=== PATIENT | male | born 1930 | race Caucasian/White ===

== ENCOUNTER 2018-06-04 16:39 | Inpatient (IN) ==
[2018-06-04] MEDS ORDERED: 0.9 % Sodium Chloride 1,000 ML IVC ONE (17:16)
--- NOTE | 2018-06-04 17:16 | Emergency Department Note ---
Disposition Clinical Impression: Elevated troponin, NSTEMI (non-ST elevated myocardial infarction), IVAN (acute kidney injury), Elevated CK Pneumonia Qualifiers: Pneumonia type: due to unspecified organism Laterality: unspecified laterality Lung location: unspecified part of lung Qualified Code(s): J18.9 - Pneumonia, unspecified organism Disposition: Admitted As Inpatient Condition: Fair [facility] Care Provider[facility] - Forms: ED Satisfaction Letter Time of Disposition: 19:47 Recheck wound or abnormal lab - General Chief Complaint: ED Recheck/Abnormal Lab/Rx Stated Complaint: Elevated Trop Time Seen by Provider: 06/04/18 16:41 Source: patient, EMS Mode of arrival: EMS Limitations: no limitations Nursing Notes Reviewed: Yes Vital Signs Reviewed: Yes - History of Present Illness HPI Narrative: 87-year-old male history of hypertension, diabetes, hypothyroid presents an emergency department via EMS for elevated troponin. Patient lives at home by himself and states over the past 3 days sees been feeling nauseated and unable to eat anything. [facility] went [facility] to [facility] and presents here for elevated troponin greater than 40. He denies any chest pain or shortness of breath. He denies any syncope. She denies any abdominal pain. Review of the note states that the patient has been feeling confused and was found on the floor crawling this morning. The patient denies falling. When I read this to the patient he denies any of this. He said he slipped out of his chair and tried to crawl to another chair. He denies history of stroke. Denies history of cardiac ischemic disease. Review of his medical history shows that he has a stent graft repair for abdominal aortic aneurysm emphysema hyperlipidemia hypertension lung nodules hypothyroid and obesity. Review of his labs showed a white count of 9.6 hemoglobin 12.3 CK 1566 and a troponin greater than 40 his creatinine is 1.94 and he denies history of kidney issues. He does not take any anticoagulants. He has not taken any aspirin today. Pt Subjective Complaint: abnormal lab(s) - Related Data Home Medications Medication Instructions Recorded Confirmed Cetirizine HCl [All Day Allergy] 10 mg PO DAILY 06/04/18 06/04/18 Cholecalciferol (D-3) [Vitamin D] 2,000 unit PO DAILY 06/04/18 06/04/18 Levothyroxine [Synthroid] 125 mcg PO 0630 06/04/18 06/04/18 Losartan [Cozaar] 25 mg PO DAILY 06/04/18 06/04/18 Omeprazole [PriLOSEC] 20 mg PO DAILY 06/04/18 06/04/18 Triamterene/Hydrochlorothiazid 1 cap PO DAILY 06/04/18 06/04/18 [Dyazide 37.5-25 Capsule] Allergies Allergy/AdvReac Type Severity Reaction Status Date / Time atorvastatin Allergy See Verified 06/04/18 16:53 Comments simvastatin Allergy See Verified 06/04/18 16:53 Comments All systems ED: reviewed and negative except as stated. Review of Systems: As Per HPI Constitutional: Reports: weakness. Denies: fever, chills ENT ED: Denies: congestion Cardiovascular: Denies: chest pain Respiratory: Denies: cough, dyspnea Gastrointestinal: Reports: nausea. Denies: abdominal pain Genitourinary: Denies: dysuria Musculoskeletal: Denies: back pain, neck pain Integumentary: Denies: rash Neurological: Reports: weakness. Denies: headache, confusion Endocrine: Reports: fatigue Past Medical History - Past Medical History Attestation: Yes The following information was validated with the patient. Source: patient Medical history: Reports: arthritis, COPD, GERD, hypertension, thyroid disease Psychiatric history: Reports: no psych history - Social History Smoking Status: Former smoker Smokeless Tobacco Status: No Alcohol use: Reports: none Drug use: Reports: none Physical Exam - General Limitations: no limitations General appearance: alert, in no apparent distress, obese - Head Head exam: atraumatic, normocephalic, normal inspection - Eye Eye exam: Present: normal appearance, PERRL, EOMI - ENT ENT exam: normal exam, normal oropharynx, mucous membranes dry - Neck Neck exam: Present: normal inspection, full ROM, trachea midline - Chest Chest inspection: Present: normal inspection, symmetric chest wall rise. Absent : tenderness - Respiratory Respiratory exam: Present: normal lung sounds bilaterally. Absent: respiratory distress, wheezes - Cardiovascular Cardiovascular exam: Present: regular rate, normal rhythm, normal heart sounds - Abdominal Exam Abdominal exam: Present: soft, Non-Tender, normal bowel sounds, pulsatile mass ( Patient has known aortic aneurysm with repair in a scheduled follow-up). Absent : tenderness, distention, guarding, rebound, rigidity - Extremities Exam Extremities exam: Present: normal inspection, full ROM. Absent: tenderness, pedal edema - Neurological Exam Neurological exam: Present: alert, oriented X3 - Psychiatric Psychiatric exam: Present: normal affect, normal mood - Skin Skin exam: Present: warm, dry, intact, normal color. Absent: rash, cyanosis, diaphoresis Course Course Narrative: Patient presents with a reported elevated troponin level of greater than 40. He denies any chest pain or shortness of breath. No syncope or lightheadedness. No history of cardiac ischemic disease. He does have risk factors. Will repeat troponin here. His initial EKG did not show any ischemic findings consistent with STEMI. His CK was elevated and also had elevated creatinine level will repeat as the urgent care note stated the patient was on the ground crawling. There is no obvious signs of injury or trauma. - Reevaluation(s) Reevaluation #1: Troponin elevated 17.2 this is lower than the report troponin from outside facility. CK is also elevated. Patient has received 1 L fluid however checks x -ray did show some fluid overload. His creatinine is also significantly elevated at 1.8 he denies history of kidney disease. He does not have any prior laboratory values to compare. Patient will require admission. Given his history of aneurysm will obtain a CT scan of his chest and pelvis to evaluate for any dissection. And has artery received aspirin. Again he denies any G.I. bleed symptoms such as hemoptysis, hematemesis, bloody stool or blacked tarry stool. Time: 19:07 - Consultations Consultation #1: Spoke with a escalator installer Dr. Castro who agrees that if there is no contraindication to heparin recommend to give heparin with bolus. Aware that troponin is still elevated at 17 without STEMI and no emergent intervention. Will consult and evaluate on the floor. Impression is NSTEMI Time: 19:45 Consultation #2: Spoke with on-call hospitalist daisy Vernon to admit for NSTEMI and CAP. No further orders at this time Time: 21:02 Vital Signs Temperature 98.4 F 06/04/18 16:43 Pulse Rate 98 06/04/18 16:43 Respiratory Rate 16 06/04/18 16:43 Blood Pressure 106/76 06/04/18 16:43 O2 Sat by Pulse Oximetry 95 06/04/18 16:43 Temperature 98.4 F 06/04/18 16:43 Pulse Rate 84 06/04/18 20:03 Respiratory Rate 20 06/04/18 20:03 Blood Pressure 106/73 06/04/18 18:50 O2 Sat by Pulse Oximetry 95 06/04/18 20:03 Oxygen Delivery Oxygen Delivery Nasal Cannula Recheck wound or abnormal lab - MDM Narrative Medical decision making narrative: Patient was discussed with my attending physician who agrees with ED management and final disposition. They independently evaluated the patient. Please refer to their attestation to this encounter for additional information. This note was generated by [employer] voice recognition software and as a result grammatical or spelling errors may occur using this program. - Medical Records Medical records reviewed: Yes I reviewed the patient's medical records. - Lab Data Lab results reviewed: Yes I reviewed the patient's lab results. Result diagrams: 06/04/18 17:31 Lab Results 06/04/18 Range/Units 17:31 Sodium 132 L (136-145) mEq/L Potassium 3.9 (3.5-5.1) mEq/L Chloride 97 L (98-107) mEq/L Carbon Dioxide 26 (23-29) mEq/L BUN 29 H (8-23) mg/dL Creatinine 1.85 H (0.70-1.30) mg/dL Est GFR ( Amer) 42 L (> 60) Est GFR (Non-Af Amer) 35 L (> 60) BUN/Creatinine Ratio 16 (6-26) Glucose 108 H (70-105) mg/dL Calculated Osmolality 280 (280-300) Calcium 9.2 (8.6-10.3) mg/dL Creatine Kinase 1326 H (30-223) Units/L Troponin I 17.24 H* (< 0.04) ng/mL TSH 3.106 (0.340-5.600) mcIU/mL - EKG Data EKG attestation: Yes I reviewed and interpreted this EKG. EKG results narrative: EKG performed 1650, appears sinus tachycardia 107 beats per minute, slight left axis deviation, good R wave progression, no ST elevation, there are minimal slight ST depression seen in V5 V6. Compared to the EKG performed at the [facility] at 1153 which shows similar consistent findings of sinus rhythm without ST changes.
[2018-06-04] MEDS ORDERED: Aspirin 325 MG TABLET PO ONE (17:29)
[2018-06-04] MEDS ORDERED: Isovue-370 500 ML INFUS..BTL IV ONE (17:51)
[2018-06-04 18:17] LABS: Calcium 9.2 mg/dL (8.6-10.3); Potassium 3.9 mEq/L (3.5-5.1)
[2018-06-04 19:07] LABS: Troponin I 17.24 ng/mL (< 0.04)
[2018-06-04 19:10] LABS: Thyroid Stimulating Hormone 3.106 mcIU/mL (0.340-5.600)
--- NOTE | 2018-06-04 19:43 | Emergency Department Note ---
Disposition Clinical Impression: Elevated troponin Disposition: Admitted As Inpatient Forms: ED Satisfaction Letter General Adult HPI - General Chief complaint: ED Recheck/Abnormal Lab/Rx Stated complaint: Elevated Trop Time Seen by Provider: 06/04/18 16:41 Source: patient, EMS Mode of arrival: EMS Limitations: no limitations - History of Present Illness Pain Scale: 0 - Related Data Allergies Allergy/AdvReac Type Severity Reaction Status Date / Time atorvastatin Allergy See Verified 06/04/18 16:53 Comments simvastatin Allergy See Verified 06/04/18 16:53 Comments Constitutional: Reports: weakness. Denies: fever, chills ENT ED: Denies: congestion Cardiovascular: Denies: chest pain Respiratory: Denies: cough, dyspnea Gastrointestinal: Reports: nausea. Denies: abdominal pain Genitourinary: Denies: dysuria Musculoskeletal: Denies: back pain, neck pain Integumentary: Denies: rash Neurological: Reports: weakness. Denies: headache, confusion Endocrine: Reports: fatigue Past Medical History - Past Medical History Medical history: Reports: arthritis, COPD, GERD, hypertension, thyroid disease Psychiatric history: Reports: no psych history - Social History Smoking Status: Former smoker Smokeless Tobacco Status: No Alcohol use: Reports: none Drug use: Reports: none Physical Exam - General Limitations: no limitations General appearance: alert, in no apparent distress, obese Course Vital Signs Temperature 98.4 F 06/04/18 16:43 Pulse Rate 98 06/04/18 16:43 Respiratory Rate 16 06/04/18 16:43 Blood Pressure 106/76 06/04/18 16:43 O2 Sat by Pulse Oximetry 95 06/04/18 16:43 Temperature 98.4 F 06/04/18 16:43 Pulse Rate 86 06/04/18 18:50 Respiratory Rate 24 06/04/18 18:50 Blood Pressure 106/73 06/04/18 18:50 O2 Sat by Pulse Oximetry 95 06/04/18 18:50 Oxygen Delivery Oxygen Delivery Nasal Cannula Medical Decision Making - Lab Data Result diagrams: 06/04/18 17:31 Lab Results 06/04/18 Range/Units 17:31 Sodium 132 L (136-145) mEq/L Potassium 3.9 (3.5-5.1) mEq/L Chloride 97 L (98-107) mEq/L Carbon Dioxide 26 (23-29) mEq/L BUN 29 H (8-23) mg/dL Creatinine 1.85 H (0.70-1.30) mg/dL Est GFR ( Amer) 42 L (> 60) Est GFR (Non-Af Amer) 35 L (> 60) BUN/Creatinine Ratio 16 (6-26) Glucose 108 H (70-105) mg/dL Calculated Osmolality 280 (280-300) Calcium 9.2 (8.6-10.3) mg/dL Creatine Kinase 1326 H (30-223) Units/L Troponin I 17.24 H* (< 0.04) ng/mL TSH 3.106 (0.340-5.600) mcIU/mL Attestation Statement - Attestation Attestation: I examined this patient and my medical decision-making was reviewed with the Resident Physician. I agree with the documented findings, disposition and treatment plan as described except to the extent set forth below. 87 year old male presents to the ED with complaints of elevatd troponin and an unclear histroy fo unknonw down time. He was originally seen at the [facility] and had an initial troponin of >40 and CK of 1300. Vinny here has a troponin of 17 and CK of 1300 in addition to a histyr of thoarcic aortic aneurysms unrepaired and a abdominal anuerysm repaired. He is an unreliable historian. We will admit to medicine
[2018-06-04] MEDS ORDERED: cefTRIAXone 2,000 MG in Water for inj. (sterile) 20 ML 20 ML IVPB ONE (20:25)
[2018-06-04] MEDS ORDERED: Azithromycin 500 MG in D5% in Water 250 ML IVPB ONE (20:25)
[2018-06-04] MEDS ORDERED: *HR* Heparin 5,000 UNIT/ML VIAL IVP ONE (20:25)
[2018-06-04] MEDS ORDERED: *HR* Heparin 5,000 UNIT/ML VIAL IVP PRN (20:25)
[2018-06-04 21:35] LABS: Heparin anti-factor XA UFH 0.01 IU/mL (0.30-0.70)
[2018-06-04 21:36] LABS: INR 1.2; Prothrombin Time 13.4 Seconds (9.4-12.1)
[2018-06-04] MEDS: Heparin 25,000 UNIT/500 ML D5W 25,000 UNIT/500 ML BAG IVC SCH (23:29)
[2018-06-05] MEDS ORDERED: Naloxone 0.4 MG/ML INJ IVP PRN (03:36)
[2018-06-05] MEDS ORDERED: Albuterol 2.5 MG/3 ML NEBULIZER IH PRN (03:44)
--- NOTE | 2018-06-05 03:58 | Internal Med History&Physical ---
Date of Encounter: 06/05/18 Time of Encounter: 01:05 Internal Medicine - H&P: HPI Chief complaint: fall; cough Admitted From: Emergency Dept Plans for Post Hospital Care: Home History of present illness: Mr. Jane is an 87 year old male who presents to our ER tonight after referral from the [facility]. His son took him to the [facility] urgent care for concerns of weakness, shortness of breath, status post fall, and not acting normally. He was seen and evaluated at the [facility] care and was found to have an elevated troponin of greater than 40. He was therefore sent to our ER for further workup and evaluation. Workup in our ER revealed patient to have a troponin of 17, EKG changes suggestive of a non-STEMI, and CT chest findings concerning for possible pneumonia. Cardiology was consulted from the ER and recommended heparinization with admission to hospitalist service and cardiology consultation. I was therefore called by the ER staff and patient was admitted to our service. Upon my assessment of the patient, he is a poor historian and not very compliant with history and/or exam. He adamantly refuses that he has had a heart attack. He states he has no chest pain, chest pressure, or any syncopal event. His only complaint was shortness of breath and that he fell at home. He denies any fevers or chills. He refuses to pursue any cardiac intervention or testing. I asked him to at least talk with cardiology and pursue an echocardiogram for further guidance. He would not comment any further. Past Med Surg Social Fam HX - Past Medical History Source: [facility] records reviewed ([facility]), other ([facility] notes) Medical history: arthritis, COPD, GERD, hypertension, thyroid disease Additional medical history: Aneurysm Psychiatric history: no psych history - Past Surgical History Surgical History: herniorrhaphy Additional surgical history: hernia repair. eye implants - Social History Smoking Status: Former smoker Smokeless Tobacco Status: No Alcohol use: none Drug use: none Current living situation: Home - Independent Activity Level: Independent ambulation - Family History Mother History Unknown: Yes Living Status: Father History Unknown: Yes Living Status: Internal Medicine - H&P: Meds Cetirizine HCl [All Day Allergy] 10 mg PO DAILY 06/04/18 [History] Cholecalciferol (D-3) [Vitamin D] 2,000 unit PO DAILY 06/04/18 [History] Levothyroxine [Synthroid] 125 mcg PO 0630 06/04/18 [History] Losartan [Cozaar] 25 mg PO DAILY 06/04/18 [History] Omeprazole [PriLOSEC] 20 mg PO DAILY 06/04/18 [History] Triamterene/Hydrochlorothiazid [Dyazide 37.5-25 Capsule] 1 cap PO DAILY [History] 3 Allergy/AdvReac Type Severity Reaction Status Date / Time atorvastatin Allergy See Verified 06/04/18 16:53 Comments simvastatin Allergy See Verified 06/04/18 16:53 Comments Review of systems: non-compliant w ROS other than that documented below - Cardiovascular Cardiovascular ROS IM: dyspnea, no chest pain, no diaphoresis, no syncope - Respiratory Respiratory: cough, no hemoptysis - Neurological Neurological ROS: no frequent falls (+ fall today but not frequent) - Constitutional Vitals: Temp Pulse Resp BP Pulse Ox 98.7 F 80 16 103/51 98 06/05/18 00:24 06/05/18 00:24 06/05/18 00:24 06/05/18 00:24 06/05/18 00:24 General appearance: Present: A&O X 3, no acute distress. Absent: cooperative Exam: non-compliant with history and exam - Head Head exam: Present: atraumatic - Eye Eye exam: Present: EOMI. Absent: scleral icterus - ENT ENT exam: Present: mucous membranes dry, normal exam, normal oropharynx - Neck Neck exam general surgery: Present: full ROM, supple. Absent: tenderness, nuchal rigidity, thyromegaly - Respiratory Respiratory exam: Present: rales (right base), rhonchi, wheezes. Absent: chest wall tenderness, respiratory distress - Cardiovascular Cardiovascular exam: Present: distant heart sounds, RRR, +S1, +S2. Absent: diastolic murmur, systolic murmur - GI/Abdominal GI/Abdominal exam: Present: normal bowel sounds, soft. Absent: mass, tenderness - Extremities Exam Extremities exam: Present: full ROM, warm, radial pulses palpable and symmetrical. Absent: calf tenderness, pedal edema, tenderness - Back Exam Back exam: Absent: CVA tenderness (L), CVA tenderness (R) - Neurological Exam Neurological exam: Present: alert, oriented X3, no focal deficits - Psychiatric Psychiatric exam: Present: agitated - Skin Skin exam: Present: dry, intact, warm Internal Med - H&P Results - Labs CBC & Chem 7: 06/04/18 17:31 Labs: Troponin 17.24 - EKG Data -: EKG Interpreted by Myself - EKG Data Prior EKG available for review: no EKG comments: 06/05/18 04:11 NSR; lateral wall ST-T depression - Diagnostic Studies CT scan - chest Status: image reviewed by me (Ascending aortic aneurysm; RUL consolidation) - Assessment and plan (1) NSTEMI (non-ST elevated myocardial infarction) Current Visit: Yes Status: Acute Assessment and plan: 1. Will trend troponins, EKG's, and order ECHO. 2. Continue heparin gtt and add ASA. 3. Patient has STATIN allergy but unknown reaction; need to verify. 4. Patient adamantly denies and refutes IA. He is refusing work-up and intervention at this time. Need to have family and day team address with cardiology. 5. Currently chest pain free. (2) Pneumonia Current Visit: Yes Status: Acute Assessment and plan: 1. Continue IV antibiotics. 2. Add aerosols PRN. 3. Oxygen as needed. 4. Clinical follow up. Qualifiers: Pneumonia type: due to unspecified organism Laterality: right Lung location: upper lobe of lung Qualified Code(s): J18.1 - Lobar pneumonia, unspecified organism (3) IVAN (acute kidney injury) Current Visit: Yes Status: Acute Assessment and plan: 1. Monitor renal function and consult nephrology if fails to improve. 2. No baseline labs available for review. (4) DVT prophylaxis Current Visit: Yes Status: Acute Assessment and plan: 1. Heparin drip as above.
[2018-06-05 04:13] LABS: Basophils % 0.1 %; Hematocrit 35.4 % (37.5-50.1); Hemoglobin 11.5 g/dL (12.9-16.9); Immature Granulocytes % 0.5 % (0-4); Lymphocytes # 0.6 K/mcL (0.6-4.6); Lymphocytes % 6.5 %; Mean Corpuscular HGB Conc 32.5 g/dL (31.6-35.5); Mean Corpuscular Hemoglobin 29.6 pg (28.0-33.3); Mean Corpuscular Volume 91.2 fL (83.0-100.0); Mean Platelet Volume 10.8 fL (9.4-12.4); Monocytes % 10.9 %; Neutrophils # 7.5 K/mcL (1.6-8.9); Platelet Count 143 K/mcL (140-400); Red Blood Count 3.88 M/mcL (4.19-5.50); Red Cell Distribution Width 14.1 % (11.5-14.5)
[2018-06-05 04:35] LABS: Albumin 3.4 g/dL (3.5-5.7); Bilirubin,Total 0.7 mg/dL (0.3-1.0); Calcium 8.9 mg/dL (8.6-10.3); Chol/HDL Ratio 3.4 (0-4.9); Globulin 3.3 g/dL (2.4-3.5); Magnesium 2.1 mg/dL (1.6-2.6); Total Protein 6.7 g/dL (6.4-8.9)
[2018-06-05 04:48] LABS: INR 1.2
[2018-06-05 04:51] LABS: Activated Partial Thrombo Time 45.6 Seconds (26.0-36.0)
[2018-06-05] MEDS: Ipratropium/Albuterol Neb 3 ML IH SCH ×4 (05:15→21:24)
[2018-06-05] MEDS: *HR* Heparin 5,000 UNIT/ML VIAL IVP PRN (05:35)
[2018-06-05] MEDS: Loratadine 10 MG TABLET PO SCH (08:18)
[2018-06-05] MEDS: cefTRIAXone 1,000 MG in Water for inj. (sterile) 20 ML 10 ML IVP SCH (08:18)
[2018-06-05] MEDS: Aspirin 81 MG TAB.CHEW PO SCH (08:18)
[2018-06-05] MEDS ORDERED: 0.9 % Sodium Chloride 500 ML IVC ONE (08:27)
--- NOTE | 2018-06-05 09:03 | Cardiology Consult Note ---
Date of Encounter: 06/05/18 Time of Encounter: 08:30 Assessment and Plan (1) NSTEMI (non-ST elevated myocardial infarction) Current Visit: Yes Status: [facility], and now 14.21. Presented to the [place] with weakness, AMS, shortness of breath. Patient denies chest pain or discomfort, no acute ECG changes present. Also with PNA (T max 24 hours 101.2) and IVAN--improving. SCr 1.76 today. CK elevated, ? Rhabdo component. Significant risk factors for CAD; ideally recommend LHC when able (IVAN/PNA resolves); patient is hesitant to proceed at this juncture due to his advanced age. Agreeable to TTE; continue heparin gtt and asa. Allergy to statins. Will start low dose BB--mildly hypotensive this AM. Will continue to follow. (2) IVAN (acute kidney injury) Current Visit: Yes Status: Acute SCr 1.94 at [place], now 1.76. Continue to avoid nephrotoxins. Mgmt per Primary service. (3) Elevated CK Current Visit: Yes Status: Acute (4) Pneumonia Current Visit: Yes Status: Acute Mgmt per Primary service. Qualifiers: Pneumonia type: due to unspecified organism Laterality: right Lung location: upper lobe of lung Qualified Code(s): J18.1 - Lobar pneumonia, unspecified organism Discussion w patient/family: The assessment and plan as outlined above was discussed with the patient and/or family members who expressed understanding and agreement. All questions were answered. Thank you for involving us in the care of your patient. Please call with any questions. The patient will be discussed and reviewed with Dr. Carvalho; changes to be made accordingly. History of Present Illness Consult date: 06/05/18 Requesting physician: Tom Mcneal Consult reason: NSTEMI Chief complaint: fall, weakness History of present illness: Mr. Jane is a 87 year old male with PMHx significant for HTN, HLD, AAA s/p endovascular repair (~2years ago), and hypothyroidism who presented to the ED as a transfer from the [place] due to reported troponin >40. Please note, patient is a poor historian, pertinent information obtained also [facility]. Reportedly, family took patient to [place] urgent care yesterday (06/04) due to AMS, weakness. Patient reports feeling weak the day before, "slid" out of chair, he reports he laid on the ground for no more than an hour before family found him. He denies chest pain/discomfort. Reports shortness of breath and fatigue, but states these are ordinary symptoms for him. [facility], was found to have PNA and was given IV azithromycin. Noted to have IVAN--SCr 1.97. Hypoxia present with SPO2 85% on RA. No prior CV testing available for my review. Past Med Surg Social Fam HX - Past Medical History Attestation: Yes The following information was validated with the patient. Source: patient Medical history: arthritis, COPD, GERD, hypertension, thyroid disease Additional medical history: Aneurysm Psychiatric history: no psych history - Past Surgical History Surgical History: herniorrhaphy, vascular surgery, other (AAA repair) Additional surgical history: hernia repair. eye implants - Social History Smoking Status: Former smoker Smokeless Tobacco Status: No Alcohol use: none Drug use: none - Family History Mother History Unknown: Yes Living Status: Father History Unknown: Yes Living Status: Medications and Allergies Cetirizine HCl [All Day Allergy] 10 mg PO DAILY 06/04/18 [History] Cholecalciferol (D-3) [Vitamin D] 2,000 unit PO DAILY 06/04/18 [History] Levothyroxine [Synthroid] 125 mcg PO 0630 06/04/18 [History] Losartan [Cozaar] 25 mg PO DAILY 06/04/18 [History] Omeprazole [PriLOSEC] 20 mg PO DAILY 06/04/18 [History] Triamterene/Hydrochlorothiazid [Dyazide 37.5-25 Capsule] 1 cap PO DAILY [History] 3 Allergy/AdvReac Type Severity Reaction Status Date / Time atorvastatin Allergy See Verified 06/04/18 16:53 Comments simvastatin Allergy See Verified 06/04/18 16:53 Comments All Systems Review: The remainder of the systems were reviewed and are negative - Cardiovascular Cardiovascular: as per HPI Physical Examination Vital Signs, Last 4 Hours Temp Pulse Resp BP Pulse Ox 06/05/18 07:45 98.4 F 94 26 136/111 94 06/05/18 07:27 99.1 F 84 16 94/43 94 06/05/18 05:17 24 93 General: Conversant, Other (ill appearing elderly WM) Cardiac: Reg Rate and Rhythm, Normal S1 and S2 Lungs: Other (diminshed, wheezing throughout) Neuro: Alert and responsive Abdomen: Soft, Other (large, non-tender) Skin: No rashes noted on visualized skin Musculoskeletal: No Chest Wall Tenderness Extremities: Other (mild BLE edema, +1 pre-tibial) Results 06/05/18 03:55 06/05/18 03:55 Lab Results 06/05/18 06/05/18 06/05/18 03:55 03:55 03:55 WBC 9.2 Hgb 11.5 L Hct 35.4 L Plt Count 143 INR APTT Sodium 133 L Potassium 4.0 Chloride 98 Carbon Dioxide 25 BUN 29 H Creatinine 1.76 H Glucose 120 H Calcium 8.9 Magnesium 2.1 Total Bilirubin 0.7 AST 76 H ALT 31 Alkaline Phosphatase 71 Troponin I 14.41 H* 06/05/18 04:26 WBC Hgb Hct Plt Count INR 1.2 APTT 45.6 H Sodium Potassium Chloride Carbon Dioxide BUN Creatinine Glucose Calcium Magnesium Total Bilirubin AST ALT Alkaline Phosphatase Troponin I Impressions Chest X-Ray 06/04/18 17:16 IMPRESSION: Patchy bilateral airspace disease, greater on the right. Multifocal pneumonia and edema are both considered. D/ / Prashanth Doe MD / Prashanth Doe MD Abdomen/Pelvis CTA 06/04/18 17:51 IMPRESSION: No evidence of thoracic or aortic dissection. Aneurysmal dilation of the ascending thoracic aorta, measuring maximally 4.7 cm. No comparison examinations are available to testing manager stability. Abdominal aortic aneurysm status post endo stent repair. No evidence of an endoleak is identified. No evidence of retroperitoneal leakage. The [place] aneurysm sac measures maximally 4.7 cm. Again, no comparison examinations are available to gauge stability. Masslike consolidation within the posterior right upper lobe and right lower lobe, most compatible with pneumonia or aspiration. However, that must be followed to resolution, especially given its morphology. Uncomplicated cholelithiasis. D/ / Prashanth Doe MD / Prashanth Doe MD Cervical Spine CT 06/04/18 17:51 IMPRESSION: No acute abnormality of the cervical spine. D/ / Fermín Francis MD / Fermín Francis MD Chest CTA 06/04/18 17:51 IMPRESSION: No evidence of thoracic or aortic dissection. Aneurysmal dilation of the ascending thoracic aorta, measuring maximally 4.7 cm. No comparison examinations are available to testing manager stability. Abdominal aortic aneurysm status post endo stent repair. No evidence of an endoleak is identified. No evidence of retroperitoneal leakage. The [place] aneurysm sac measures maximally 4.7 cm. Again, no comparison examinations are available to gauge stability. Masslike consolidation within the posterior right upper lobe and right lower lobe, most compatible with pneumonia or aspiration. However, that must be followed to resolution, especially given its morphology. Uncomplicated cholelithiasis. D/ / Prashanth Doe MD / Prashanth Doe MD Head CT 06/04/18 17:51 IMPRESSION: No acute intracranial abnormality. Diffuse atrophic changes with findings suggesting chronic microvascular ischemia D/ / Fermín Francis MD / Fermín Francis MD Active Medications Albuterol Sulfate (Proventil Neb) 2.5 mg IH Q2H PRN; Protocol PRN Reason: Shortness Of Breath/Wheezing Stop: 12/05/18 03:45 Albuterol/Ipratropium (Duoneb) 3 ml IH [id number] [facility] Stop: 12/05/18 04:01 Last Admin: 06/05/18 05:15 Dose: 3 ml Aspirin (Aspirin) 81 mg PO DAILY [facility] Stop: 12/05/18 09:01 Last Admin: 06/05/18 08:18 Dose: 81 mg Heparin Sodium (Porcine) (Heparin) 4,000 unit IVP Q6HR PRN PRN Reason: SEE COMMENTS Stop: 12/04/18 20:26 Heparin Sodium (Porcine) (Heparin) 2,000 unit IVP Q6H PRN PRN Reason: SEE COMMENTS Stop: 12/04/18 20:26 Last Admin: 06/05/18 05:35 Dose: 2,000 unit Heparin Sodium/Dextrose (Heparin 25,000 Unit/500 Ml D5w) 25,000 unit in 500 mls @ 20.031 mls/hr IVC .Q24H [facility]; 9.2 UNIT/KG/HR PRN Reason: Protocol Stop: 12/04/18 20:31 Last Titration: 06/05/18 05:32 Dose: 11.29 unit/kg/hr, 24.6 mls/hr Azithromycin 500 mg/ Dextrose 250 mls @ 252 mls/hr IVPB Q24H [facility] Stop: 12/05/18 21:01 Ceftriaxone Sodium 1,000 mg/ (Sterile Water) 10 mls @ 600 mls/hr IVP DAILY [facility] Stop: 12/05/18 09:01 Last Admin: 06/05/18 08:18 Dose: 600 mls/hr Levothyroxine Sodium (Synthroid) 125 mcg PO 0630 [facility] Stop: 12/05/18 06:31 Last Admin: 06/05/18 05:30 Dose: Not Given Loratadine (Claritin) 10 mg PO DAILY [facility] Stop: 12/05/18 09:01 Last Admin: 06/05/18 08:18 Dose: 10 mg Naloxone HCl (Narcan) 0.4 mg IVP Q2MIN PRN PRN Reason: SEE COMMENTS Stop: 12/05/18 03:37 - Imaging and Cardiology Echo: pending Other Results: 12 hour tele: avg HR=93 SR. Frequent PVCs. - EKG Interpretation EKG results cardiology: personally reviewed Consult Discharge Plan - Plan [facility]errals: [facility] [Primary Care Provider] -
--- NOTE | 2018-06-05 09:03 | Electrocardiograph Report ---
[facility] Test Date: 2018-06-04 Pat Name: Johan Jane Department: EXAM23 Room: 2NE22 Gender: M Bankruptcy Manager: : [id number] Requested By: Rj Andrews Order Number: [id number] Reading MD: Marquise Lao Measurements Intervals [place] Rate: 107 P: 169 CO: 130 QRS: -55 QRSD: 105 T: 61 QT: 383 QTc: 511 Interpretive Statements Sinus or ectopic atrial tachycardia LAD, consider left anterior fascicular block Low voltage, extremity and precordial leads Abnormal R-wave progression, early transition Prolonged QT interval Electronically Signed On 06-05-2018 9:02:01 EDT by Marquise Lao
--- NOTE | 2018-06-05 10:11 | Internal Med Progress Note ---
Hospitalist Progress Note - Encounter Date of Encounter: 06/05/18 Time of Encounter: 09:02 - Subjective Interval History: Patient seen and examined this morning. Denies any complains. Doesnt think anything wrong with him. appears somewhat short of breath. - Exam Vitals: Temp Pulse Resp BP Pulse Ox 98.4 F 94 26 136/111 94 06/05/18 07:45 06/05/18 07:45 06/05/18 07:45 06/05/18 07:45 06/05/18 07:45 Exam: Gen: In no acute distress. conversatn Respiratory exam: Good air entry. Has wheezing presentb/l Cardiovascular exam: RRR, +S1, +S2. no murmur, gallop, rubs. GI/Abdominal exam: Non-tender, Non-distended, normal bowel sounds, soft, no peritoneal signs. Extremities exam: full ROM, 1+ pedal edema, warm, pulses palpable and symmetrical in both Upper and lower extremities. no calf tenderness, cyanotic Neurological exam: CN II-XII intact, AO X3, no focal deficits. Skin exam: No skin rash, ulcer, purpura or ecchymosis. - Assessment and Plan (1) NSTEMI (non-ST elevated myocardial infarction) Current Visit: Yes Status: Acute (2) IVAN (acute kidney injury) Current Visit: Yes Status: Acute (3) Pneumonia Current Visit: Yes Status: Acute (4) DVT prophylaxis Current Visit: Yes Status: Acute - Summary of Assessment and Plan Summary of Assessment and Plan: NSTEMI (non-ST elevated myocardial infarction) - f/u ECHO - troponins downtrending. now 14. Currently chest pain free. - c/w heparin gtt and ASA. - Patient has STATIN allergy but unknown reaction; will attempt to verify further. - Cardiology following. Appreciate recommendations. Started on Low dose BB. [facility] recommended when possible but patient hesitant given age. Pneumonia - c/w Ceftriaxone/azithromycin - c/w duonebs IVAN - Monitor renal function and consult nephrology if fails to improve. - Improving. - Avoid nephrotoxins Elevated CK - Had fall and was on floor for while. Also with IVAN. Likely has some component of rhabdomylolysis - Will give 500 cc NS given IVAN DVT prophylaxis - on Heparin drip - Time Spent with Patient Total time spent is greater than 50% in coordination of care (as documented) at patient's floor/unit and/or counseling patient: Internal Medicine: Result - Labs CBC & Chem 7: 06/05/18 03:55 06/05/18 03:55 Labs: Short CBC 06/05/18 Range/Units 03:55 WBC 9.2 (4.3-11.1) K/mcL Hgb 11.5 L (12.9-16.9) g/dL Hct 35.4 L (37.5-50.1) % Plt Count 143 (140-400) K/mcL Neutrophils # 7.5 (1.6-8.9) K/mcL BMP 06/05/18 03:55 Sodium 133 L Potassium 4.0 Chloride 98 Carbon Dioxide 25 BUN 29 H Creatinine 1.76 H Glucose 120 H Calcium 8.9 Cardiac Enzymes 06/05/18 Range/Units 03:55 Troponin I 14.41 H* (< 0.04) ng/mL Liver Function 06/05/18 Range/Units 03:55 Total Bilirubin 0.7 (0.3-1.0) mg/dL AST 76 H (13-39) Units/L ALT 31 (7-52) Units/L Alkaline Phosphatase 71 (34-104) Units/L Albumin 3.4 L (3.5-5.7) g/dL - ABG Interpretation ABG results: PT/INR, D-dimer PT 14.0 Seconds (9.4-12.1) H 06/05/18 04:26 Consult Discharge Plan - Plan [facility]errals: [facility] [Primary Care Provider] - (3) Pneumonia Qualifiers: Pneumonia type: due to unspecified organism Laterality: right Lung location : upper lobe of lung Qualified Code(s): J18.1 - Lobar pneumonia, unspecified organism
[2018-06-05] MEDS: Metoprolol XL (24 HR) Succ 25 MG TAB.ER.24H PO SCH (10:40)
[2018-06-05] MEDS: Azithromycin 500 MG in D5% in Water 250 ML IVPB SCH (20:37)
[2018-06-05] MEDS: Heparin 25,000 UNIT/500 ML D5W 25,000 UNIT/500 ML BAG IVC SCH (22:55)
[2018-06-06] MEDS: Ipratropium/Albuterol Neb 3 ML IH SCH ×4 (04:23→21:17)
[2018-06-06 05:46] LABS: Basophils % 0.1 %; Eosinophils % 0.3 %; Hematocrit 31.8 % (37.5-50.1); Hemoglobin 10.3 g/dL (12.9-16.9); Immature Granulocytes % 0.4 % (0-4); Lymphocytes # 0.7 K/mcL (0.6-4.6); Lymphocytes % 9.9 %; Mean Corpuscular HGB Conc 32.4 g/dL (31.6-35.5); Mean Corpuscular Hemoglobin 29.5 pg (28.0-33.3); Mean Corpuscular Volume 91.1 fL (83.0-100.0); Mean Platelet Volume 11.7 fL (9.4-12.4); Monocytes # 1.1 K/mcL (0.0-1.3); Monocytes % 14.9 %; Neutrophils # 5.4 K/mcL (1.6-8.9); Platelet Count 135 K/mcL (140-400); Red Blood Count 3.49 M/mcL (4.19-5.50); Red Cell Distribution Width 14.6 % (11.5-14.5); Segmented Neutrophils % 74.4 %
[2018-06-06 06:05] LABS: Calcium 8.8 mg/dL (8.6-10.3); Potassium 3.9 mEq/L (3.5-5.1)
--- NOTE | 2018-06-06 08:25 | Internal Med Progress Note ---
Hospitalist Progress Note - Encounter Date of Encounter: 06/06/18 Time of Encounter: 08:15 - Subjective Interval History: Patient seen and examined this morning. Has some shortness of breath. No fever, chill, N/V/D. Denies chest pain, abdominal pain or back pain - Exam Vitals: Temp Pulse Resp BP Pulse Ox 98.5 F 83 18 114/89 93 06/06/18 07:22 06/06/18 07:22 06/06/18 07:22 06/06/18 07:22 06/06/18 07:22 Exam: Gen: In no acute distress. conversant Respiratory exam: Good air entry. Has wheezing present b/l Cardiovascular exam: RRR, +S1, +S2. no murmur, gallop, rubs. GI/Abdominal exam: Non-tender, Non-distended, normal bowel sounds, soft, no peritoneal signs. Extremities exam: full ROM, 1+ pedal edema, warm, pulses palpable and symmetrical in both Upper and lower extremities. no calf tenderness, cyanotic Neurological exam: CN II-XII intact, AO X3, no focal deficits. Skin exam: No skin rash, ulcer, purpura or ecchymosis. - Assessment and Plan (1) NSTEMI (non-ST elevated myocardial infarction) Current Visit: Yes Status: Acute (2) IVAN (acute kidney injury) Current Visit: Yes Status: Acute (3) Pneumonia Current Visit: Yes Status: Acute (4) DVT prophylaxis Current Visit: Yes Status: Acute - Summary of Assessment and Plan Summary of Assessment and Plan: NSTEMI (non-ST elevated myocardial infarction) - f/u ECHO - troponins downtrending. 14-->12-->8. Currently chest pain free. - c/w heparin gtt and ASA. - Patient has statin allergy but unknown reaction to atorvastatin and simvastatin; Will start pravastatin on discharge given low incidence of myopathy. Is non formulary. - Cardiology following. Appreciate recommendations. Started on Low dose toprol Xl. LHC recommended when possible but patient hesitant given age. Pneumonia - Masslike consolidation RUL and RLL. f/u to resolution given morphology. - Still with some shortness of breath. Increase duonebs to q4h. - c/w Ceftriaxone/azithromycin - f/u ECHO. IVAN - Stable vitals. - Worsened today. Will start careful gentle hydration. f/u ECHO, f/u Urine studies. Strict I/O - Avoid nephrotoxins - Will consult nephrology given may undergo LHC. Elevated CK - Had fall and was on floor for while. Also with IVAN. Likely has some component of rhabdomylolysis - Will give 500 cc NS given IVAN DVT prophylaxis - on Heparin drip - Time Spent with Patient Total time spent is greater than 50% in coordination of care (as documented) at patient's floor/unit and/or counseling patient: Internal Medicine: Result - Labs CBC & Chem 7: 06/06/18 03:27 06/06/18 03:27 Labs: Short CBC 06/06/18 Range/Units 03:27 WBC 7.2 (4.3-11.1) K/mcL Hgb 10.3 L (12.9-16.9) g/dL Hct 31.8 L (37.5-50.1) % Plt Count 135 L (140-400) K/mcL Neutrophils # 5.4 (1.6-8.9) K/mcL BMP 06/06/18 03:27 Sodium 134 L Potassium 3.9 Chloride 98 Carbon Dioxide 26 BUN 35 H Creatinine 1.94 H Glucose 99 Calcium 8.8 Cardiac Enzymes 06/05/18 06/05/18 Range/Units 09:25 15:50 Troponin I 12.36 H* 8.45 H* (< 0.04) ng/mL - ABG Interpretation ABG results: PT/INR, D-dimer PT 14.0 Seconds (9.4-12.1) H 06/05/18 04:26 Consult Discharge Plan - Plan [facility]errals: [facility] [Primary Care Provider] - (3) Pneumonia Qualifiers: Pneumonia type: due to unspecified organism Laterality: right Lung location : upper lobe of lung Qualified Code(s): J18.1 - Lobar pneumonia, unspecified organism
[2018-06-06] MEDS ORDERED: 0.9 % Sodium Chloride 1,000 ML IVC SCH (08:30)
[2018-06-06] MEDS: Loratadine 10 MG TABLET PO SCH (08:47)
[2018-06-06] MEDS: cefTRIAXone 1,000 MG in Water for inj. (sterile) 20 ML 10 ML IVP SCH (08:47)
[2018-06-06] MEDS: Metoprolol XL (24 HR) Succ 25 MG TAB.ER.24H PO SCH (08:47)
[2018-06-06] MEDS: Aspirin 81 MG TAB.CHEW PO SCH (08:47)
[2018-06-06] MEDS ORDERED: 0.9 % Sodium Chloride 500 ML IVC ONE (08:48)
--- NOTE | 2018-06-06 11:34 | Cardiology Progress Note ---
Date of Encounter: 06/06/18 Time of Encounter: 11:30 Assessment and Plan (1) NSTEMI (non-ST elevated myocardial infarction) Current Visit: Yes Status: Acute Troponin reportedly >40 at the [place], 17.24, 14.21, 12.36, now 8.45. Presented to the [place] with weakness, AMS, shortness of breath. Patient denies chest pain or discomfort, no acute ECG changes present. Also with PNA and IVAN upon admission. Has now been afebrile for 24 hours. CK elevated, ? Rhabdo component. TTE: LVEF 55%, mild segmental LV systolic dysfunction, apical septal wall hypokinesis Significant risk factors for CAD; ideally recommend LHC when able (IAVN/PNA resolves); patient is hesitant to proceed at this juncture due to his advanced age. Discussed again, desires conservative medical therapy; which is appropriate given preserved LVEF, renal dysfunction, advanced age, and declining H/H and platelets (discussed with primary team--occult stool ordered) Continue heparin gtt, BB, and asa. Allergy to statins. Will continue to follow. (2) IVAN (acute kidney injury) Current Visit: Yes Status: Acute SCr 1.94 at [place]. SCr worsened today. Continue to avoid nephrotoxins. Mgmt per Primary service, Nephrology has been consulted. (3) Elevated CK Current Visit: Yes Status: Acute (4) Pneumonia Current Visit: Yes Status: Acute Mgmt per Primary service. Qualifiers: Pneumonia type: due to unspecified organism Laterality: right Lung location: upper lobe of lung Qualified Code(s): J18.1 - Lobar pneumonia, unspecified organism Discussion w patient/family: The assessment and plan as outlined above was discussed with the patient and/or family members who expressed understanding and agreement. All questions were answered. Thank you for involving us in the care of your patient. Please call with any questions. The patient will be discussed and reviewed with Dr. Dougherty; changes to be made accordingly. Subjective Principal diagnosis: Elevated troponin Interval history: Seen and examined. No c/o chest pain today. No shortness of breath. He has no complaints today upon exam, is unsure why he is still hospitalized. Objective Vital Signs, Last 4 Hours Resp Pulse Ox 06/06/18 10:46 18 94 General: Conversant HEENT: Atraumatic, Normocephaly Cardiac: Reg Rate and Rhythm, Normal S1 and S2 Lungs: Other (diminished) Neuro: Alert and responsive Abdomen: Soft Skin: No rashes noted on visualized skin Musculoskeletal: No Chest Wall Tenderness Extremities: No Edema, Normal Pulses Results 06/06/18 03:27 06/06/18 03:27 Lab Results 06/05/18 06/06/18 06/06/18 15:50 03:27 03:27 WBC 7.2 Hgb 10.3 L Hct 31.8 L Plt Count 135 L Sodium 134 L Potassium 3.9 Chloride 98 Carbon Dioxide 26 BUN 35 H Creatinine 1.94 H Glucose 99 Calcium 8.8 Troponin I 8.45 H* Active Medications Albuterol Sulfate (Proventil Neb) 2.5 mg IH Q2H PRN; Protocol PRN Reason: Shortness Of Breath/Wheezing Stop: 12/05/18 03:45 Albuterol/Ipratropium (Duoneb) 3 ml IH [id number] [facility] Stop: 12/05/18 04:01 Last Admin: 06/06/18 10:45 Dose: 3 ml Aspirin (Aspirin) 81 mg PO DAILY [facility] Stop: 12/05/18 09:01 Last Admin: 06/06/18 08:47 Dose: 81 mg Heparin Sodium (Porcine) (Heparin) 4,000 unit IVP Q6HR PRN PRN Reason: SEE COMMENTS Stop: 12/04/18 20:26 Heparin Sodium (Porcine) (Heparin) 2,000 unit IVP Q6H PRN PRN Reason: SEE COMMENTS Stop: 12/04/18 20:26 Last Admin: 06/05/18 05:35 Dose: 2,000 unit Heparin Sodium/Dextrose (Heparin 25,000 Unit/500 Ml D5w) 25,000 unit in 500 mls @ 20.031 mls/hr IVC .Q24H [facility]; 9.2 UNIT/KG/HR PRN Reason: Protocol Stop: 12/04/18 20:31 Last Admin: 06/05/18 22:55 Dose: 11.29 unit/kg/hr, 24.6 mls/hr Azithromycin 500 mg/ Dextrose 250 mls @ 252 mls/hr IVPB Q24H [facility] Stop: 12/05/18 21:01 Last Infusion: 06/05/18 21:37 Dose: Infused Ceftriaxone Sodium 1,000 mg/ (Sterile Water) 10 mls @ 600 mls/hr IVP DAILY [facility] Stop: 12/05/18 09:01 Last Infusion: 06/06/18 08:49 Dose: Infused Sodium Chloride (0.9 % Sodium Chloride) 1,000 mls @ 75 mls/hr IVC .[id number] [facility] Stop: 12/06/18 08:31 Last Admin: 06/06/18 08:49 Dose: 75 mls/hr Sodium Chloride (0.9 % Sodium Chloride) 1,000 mls @ 100 mls/hr IVC .Q10H [facility] Stop: 12/06/18 09:01 Levothyroxine Sodium (Synthroid) 125 mcg PO 0630 [facility] Stop: 12/05/18 06:31 Last Admin: 06/06/18 05:45 Dose: Not Given Loratadine (Claritin) 10 mg PO DAILY [facility] Stop: 12/05/18 09:01 Last Admin: 06/06/18 08:47 Dose: 10 mg Metoprolol Succinate (Toprol Xl) 12.5 mg PO DAILY [facility] Stop: 12/05/18 09:46 Last Admin: 06/06/18 08:47 Dose: 12.5 mg Naloxone HCl (Narcan) 0.4 mg IVP Q2MIN PRN PRN Reason: SEE COMMENTS Stop: 12/05/18 03:37 - Imaging and Cardiology Echo: report reviewed Other Results: 12 hour tele: avg HR=86 SR with RBBB. - EKG Interpretation EKG results cardiology: sinus rhythm, right bundle branch block Consult Discharge Plan - Plan [facility]errals: [facility] [Primary Care Provider] -
--- NOTE | 2018-06-06 12:52 | Internal Med Progress Note ---
Hospitalist Progress Note - Encounter Date of Encounter: 06/06/18 Time of Encounter: 12:51 - Subjective Interval History: Patient seen and examined this morning. Has some shortness of breath. No fever, chill, N/V/D. Denies chest pain, abdominal pain or back pain - Exam Vitals: Temp Pulse Resp BP Pulse Ox 98.3 F 75 16 94/61 94 06/06/18 11:36 06/06/18 11:36 06/06/18 11:36 06/06/18 11:36 06/06/18 11:36 Exam: Gen: In no acute distress. conversant Respiratory exam: Good air entry. Has wheezing present b/l Cardiovascular exam: RRR, +S1, +S2. no murmur, gallop, rubs. GI/Abdominal exam: Non-tender, Non-distended, normal bowel sounds, soft, no peritoneal signs. Extremities exam: full ROM, 1+ pedal edema, warm, pulses palpable and symmetrical in both Upper and lower extremities. no calf tenderness, cyanotic Neurological exam: CN II-XII intact, AO X3, no focal deficits. Skin exam: No skin rash, ulcer, purpura or ecchymosis. - Assessment and Plan (1) NSTEMI (non-ST elevated myocardial infarction) Current Visit: Yes Status: Acute (2) IVAN (acute kidney injury) Current Visit: Yes Status: Acute (3) Pneumonia Current Visit: Yes Status: Acute (4) DVT prophylaxis Current Visit: Yes Status: Acute - Summary of Assessment and Plan Summary of Assessment and Plan: NSTEMI (non-ST elevated myocardial infarction) - ECHO with EF of 55%, Mild LV dysfunction and apical septal wall hypokinesis. - troponins downtrending. 14-->12-->8. Currently chest pain free. - c/w heparin gtt and ASA. - Patient has statin allergy but unknown reaction to atorvastatin and simvastatin; Will start pravastatin on discharge given low incidence of myopathy. Is non formulary. - Cardiology following. Appreciate recommendations. Started on Low dose toprol Xl. [facility] recommended but patient opted for medical management given age. Pneumonia - Masslike consolidation RUL and RLL. f/u to resolution given morphology. - Still with some shortness of breath. Increase duonebs to q4h. - c/w Ceftriaxone/azithromycin - f/u ECHO. IVAN - Stable vitals. - Worsened today. c/w IVF. f/u Urine studies. Strict I/O - Avoid nephrotoxins - Nephrology following. Recommendations appreciated. f/u uric acid. Will use mucomyst for prophylasix one [facility] date set. Elevated CK - Had fall and was on floor for while. Also with IVAN. Likely has some component of rhabdomylolysis - c/w IVF. DVT prophylaxis - on Heparin drip - Time Spent with Patient Total time spent is greater than 50% in coordination of care (as documented) at patient's floor/unit and/or counseling patient: Internal Medicine: Result - Labs CBC & Chem 7: 06/06/18 03:27 06/06/18 03:27 Labs: Short CBC 06/06/18 Range/Units 03:27 WBC 7.2 (4.3-11.1) K/mcL Hgb 10.3 L (12.9-16.9) g/dL Hct 31.8 L (37.5-50.1) % Plt Count 135 L (140-400) K/mcL Neutrophils # 5.4 (1.6-8.9) K/mcL BMP 06/06/18 03:27 Sodium 134 L Potassium 3.9 Chloride 98 Carbon Dioxide 26 BUN 35 H Creatinine 1.94 H Glucose 99 Calcium 8.8 Cardiac Enzymes 06/05/18 Range/Units 15:50 Troponin I 8.45 H* (< 0.04) ng/mL - ABG Interpretation ABG results: PT/INR, D-dimer PT 14.0 Seconds (9.4-12.1) H 06/05/18 04:26 - Impressions Impressions Echocardiogram 06/05/18 03:44 Impressions: Technically sub-optimal due to poor echocardiographic windows. LVEF 55%. Normal LV chamber size and function. Mild asymmetric hypertrophy of the basal septum. Atypical septal motion consistent with bundle branch block. Mild segmental left ventricular systolic dysfunction. Mild left ventricular diastolic dysfunction. Normal right ventricular structure and function. Unable to estimate RVSP due to lack of TR jet. Consult Discharge Plan - Plan [facility]errals: [facility] [Primary Care Provider] - (3) Pneumonia Qualifiers: Pneumonia type: due to unspecified organism Laterality: right Lung location : upper lobe of lung Qualified Code(s): J18.1 - Lobar pneumonia, unspecified organism
--- NOTE | 2018-06-06 13:21 | Event Note ---
Date of Encounter: 06/06/18 Time of Encounter: 13:18 - Cardiology Event Note 87 YOM with multiple CRF's independent lives alone presents from outside hospital with trops > 40 here at 8 and downtrending. ECHO with preserved EF. Patient is difficult historian. We discussed R/B/A of a LHC and he agrees. LHC will be planned for once he is stable and euvolemic. He also needs an urgent hematology consult for dropping platelets/Hgb.
--- NOTE | 2018-06-06 15:23 | Nephrology Consult Note ---
Date of Encounter: 06/06/18 Time of Encounter: 15:00 Assessment and Plan (1) IVAN (acute kidney injury) Current Visit: Yes Status: Acute Elevated Scr in the setting of NSTEMI with elevated CPK and PNA, baseline fxn unknown Agree with IVF for volume resuscitation Hold all nephrotoxins if possible Pros/cons of iv contrast during C discussed including worsening renal fxn Will use mucomyst for prophylasix once LHC date set Urine studies pending Will check uric acid level (2) Elevated troponin Current Visit: Yes Status: Acute Per cardio (3) Pneumonia Current Visit: Yes Status: Acute Abx per primary team Qualifiers: Pneumonia type: due to unspecified organism Laterality: right Lung location: upper lobe of lung Qualified Code(s): J18.1 - Lobar pneumonia, unspecified organism History of Present Illness - Reason for Consult Consult date: 06/06/18 Chronic Kidney Disease - History of Present Illness 87y o male with PMH of HTN, COPD, GERD, AAA s/p endovascular repair and arthritis admitted 06/05/18 [facility]B and generalized weakness s/p fall. He was noted with very elevated troponin level above 40 and trending down. Cardiology on board with [facility] planned once stabilized. renal consulted to help with management of elevated SCr of 1.94, GFR 33. Pt is a poor historian with most of the information obtained from the records. We do not have records of his baseline renal fxn at present. Past Med Surg Social Fam HX - Past Medical History Medical history: arthritis, COPD, GERD, hypertension, thyroid disease Additional medical history: Aneurysm Psychiatric history: no psych history - Past Surgical History Surgical History: herniorrhaphy, vascular surgery, other (AAA repair) Additional surgical history: hernia repair. eye implants - Social History Smoking Status: Former smoker Smokeless Tobacco Status: No Alcohol use: none Drug use: none - Family History Mother History Unknown: Yes Living Status: Father History Unknown: Yes Living Status: Medications and Allergies Cetirizine HCl [All Day Allergy] 10 mg PO DAILY 06/04/18 [History] Cholecalciferol (D-3) [Vitamin D] 2,000 unit PO DAILY 06/04/18 [History] Levothyroxine [Synthroid] 125 mcg PO 0630 06/04/18 [History] Losartan [Cozaar] 25 mg PO DAILY 06/04/18 [History] Omeprazole [PriLOSEC] 20 mg PO DAILY 06/04/18 [History] Triamterene/Hydrochlorothiazid [Dyazide 37.5-25 Capsule] 1 cap PO DAILY [History] 3 Allergy/AdvReac Type Severity Reaction Status Date / Time atorvastatin Allergy See Verified 06/04/18 16:53 Comments simvastatin Allergy See Verified 06/04/18 16:53 Comments Review of Systems All Systems review (narrative): The rest of the systems (10) are negative Constitutional: weakness (admits) Cardiovascular: chest pain (denies any present), leg edema (admits) Respiratory: dyspnea (admits) Exam - Vital Signs Vital signs: Initial Vital Signs Temp Pulse Resp BP Pulse Ox 98.4 F 98 16 106/76 95 06/04/18 16:43 06/04/18 16:43 06/04/18 16:43 06/04/18 16:43 06/04/18 16:43 Vital Signs - Last 8 Hours Temp Pulse Resp BP Pulse Ox 06/06/18 11:36 98.3 F 75 16 94/61 94 06/06/18 10:46 18 94 06/06/18 07:22 98.5 F 83 18 114/89 93 Intake and Output 06/05/18 06/06/18 06/06/18 23:59 07:59 15:59 Intake Total 645.0 / 645.0 100 / 100 Output Total 225 / 225 350 / 350 Balance 420.0 / 420.0 -250 / -250 Intake: IV Fluids 645.0 / 645.0 Heparin 25,000 UNIT/500 ML D5W 395.0 / 395.0 25,000 unit In 500 ml @ 9.2 UNIT/KG/HR 20.031 mls/hr IVC . Q24H MADELINE Rx#:[id number] Rocephin 1,000 MG In Water for inj. (sterile) 10 ML @ 600 mls/ hr IVP DAILY MADELINE Rx#:[id number] Zithromax 500 mg In Dextrose 5% 250 / 250 250 ML @ 252 mls/hr IVPB Q24H M[facility] Rx#:[id number] Oral 0 / 0 100 / 100 Output: Urine 225 / 225 350 / 350 Other: Blood Glucose* 117 Results - Lab Results 06/08/18 03:36 06/08/18 03:36 Most recent lab results Calcium 8.8 mg/dL (8.6-10.3) 06/06/18 03:27 Magnesium 2.1 mg/dL (1.6-2.6) 06/05/18 03:55 Consult Discharge Plan - Plan Referrals: [facility] [Primary Care Provider] -
[2018-06-06 15:40] LABS: Uric Acid 6.7 mg/dL (2.3-7.6)
[2018-06-06] MEDS ORDERED: Lactulose Oral Soln 20 GM/30 ML UDC PO ONE (16:15)
[2018-06-06] MEDS: 0.9 % Sodium Chloride 1,000 ML IVC SCH (16:45)
[2018-06-06] MEDS: Heparin 25,000 UNIT/500 ML D5W 25,000 UNIT/500 ML BAG IVC SCH (18:11)
[2018-06-06] MEDS: *HR* Heparin 5,000 UNIT/ML VIAL IVP PRN (19:17)
[2018-06-06] MEDS: Azithromycin 500 MG in D5% in Water 250 ML IVPB SCH (21:00)
[2018-06-07 01:37] LABS: Basophils % 0.3 %; Eosinophils # 0.1 K/mcL (0.0-0.6); Eosinophils % 2.3 %; Hemoglobin 10.4 g/dL (12.9-16.9); Immature Granulocytes % 0.3 % (0-4); Lymphocytes # 0.7 K/mcL (0.6-4.6); Lymphocytes % 12.2 %; Mean Corpuscular HGB Conc 32.5 g/dL (31.6-35.5); Mean Corpuscular Hemoglobin 30.1 pg (28.0-33.3); Mean Corpuscular Volume 92.5 fL (83.0-100.0); Mean Platelet Volume 10.4 fL (9.4-12.4); Monocytes # 0.9 K/mcL (0.0-1.3); Platelet Count 138 K/mcL (140-400); Red Blood Count 3.46 M/mcL (4.19-5.50); Red Cell Distribution Width 14.6 % (11.5-14.5); Segmented Neutrophils % 68.9 %
[2018-06-07 01:59] LABS: Calcium 8.7 mg/dL (8.6-10.3); Potassium 4.1 mEq/L (3.5-5.1)
[2018-06-07] MEDS: 0.9 % Sodium Chloride 1,000 ML IVC SCH ×2 (02:35→14:20)
[2018-06-07] MEDS: Ipratropium/Albuterol Neb 3 ML IH SCH ×6 (03:51→23:26)
[2018-06-07 05:04] LABS: Bilirubin,Urine Negative (Negative); Blood,Urine Small (Negative); Clarity,Urine Cloudy (Clear); Color,Urine Yellow (Yellow); Glucose,Urine (UA) Normal (Normal); Ketones,Urine Negative (Negative); Leukocyte Esterase,Urine Negative (Negative); Nitrite,Urine Negative (Negative); Protein,Urine 100 mg/dL (Neg-Trace); Specific Gravity,Urine 1.007 (1.010-1.025); Urobilinogen,Urine Normal (Normal)
[2018-06-07 05:07] LABS: Bacteria,Urine None Seen per hpf (None-Few); Hyaline Casts,Urine None Seen per lpf (None-Few); Squamous Epithelial Cell,Urine Many per lpf (None-Few)
[2018-06-07 05:22] LABS: Creatinine,Urine 99 mg/dL
[2018-06-07 05:43] LABS: RBC,Urine 0-3 per hpf (0-3); Yeast,Urine Few per hpf (None Seen)
[2018-06-07] MEDS: Loratadine 10 MG TABLET PO SCH (10:10)
[2018-06-07] MEDS: Aspirin 81 MG TAB.CHEW PO SCH (10:10)
[2018-06-07] MEDS: cefTRIAXone 1,000 MG in Water for inj. (sterile) 20 ML 10 ML IVP SCH (10:10)
[2018-06-07] MEDS: Metoprolol XL (24 HR) Succ 25 MG TAB.ER.24H PO SCH (10:11)
[2018-06-07] MEDS: Heparin 25,000 UNIT/500 ML D5W 25,000 UNIT/500 ML BAG IVC SCH (10:18)
--- NOTE | 2018-06-07 10:56 | Cardiology Progress Note ---
Date of Encounter: 06/07/18 Time of Encounter: 10:00 Assessment and Plan (1) NSTEMI (non-ST elevated myocardial infarction) Current Visit: Yes Status: Acute Troponin reportedly >40 at the [place], 17.24, 14.21, 12.36, now 8.45. Presented to the [facility] with weakness, AMS, shortness of breath. Patient denies chest pain or discomfort, no acute ECG changes present. Also with PNA and IVAN upon admission. Has now been afebrile for > 48 hours. CK elevated, ? Rhabdo component. TTE: LVEF 55%, mild segmental LV systolic dysfunction, apical septal wall hypokinesis Significant risk factors for CAD; ideally recommend LHC when able (IVAN/PNA resolves); patient is agreeable for LHC on Saturday if renal function allows and H /H remain stable. Continue heparin gtt, BB, and asa. Allergy to statins. Will continue to follow. (2) IVAN (acute kidney injury) Current Visit: Yes Status: Acute SCr 1.94 at [facility]. Continue to avoid nephrotoxins. Mgmt per Primary service, Nephrology has been consulted; appreciate recommendations. (3) Elevated CK Current Visit: Yes Status: Acute (4) Pneumonia Current Visit: Yes Status: Acute Mgmt per Primary service. Qualifiers: Pneumonia type: due to unspecified organism Laterality: right Lung location: upper lobe of lung Qualified Code(s): J18.1 - Lobar pneumonia, unspecified organism Discussion w patient/family: The assessment and plan as outlined above was discussed with the patient and/or family members who expressed understanding and agreement. All questions were answered. Thank you for involving us in the care of your patient. Please call with any questions. The patient will be discussed and reviewed with Dr. Dougherty; changes to be made accordingly. Subjective Principal diagnosis: Elevated troponin Interval history: Seen and examined. No c/o chest pain today. No shortness of breath. Reports lower back pain from laying in bed. He has no complaints today upon exam, is unsure why he is still hospitalized. Objective Vital Signs, Last 4 Hours Temp Pulse Resp BP Pulse Ox 06/07/18 10:31 99.5 F 96 19 109/65 91 06/07/18 09:24 20 124/80 95 06/07/18 07:09 100.7 F H 99 19 124/80 92 General: Conversant HEENT: Atraumatic Cardiac: Reg Rate and Rhythm, Normal S1 and S2 Lungs: Other (Wheezing noted throughout) Neuro: Alert and responsive Abdomen: Soft Skin: No rashes noted on visualized skin Musculoskeletal: No Chest Wall Tenderness Extremities: No Edema, Normal Pulses Results 06/07/18 01:20 06/07/18 01:20 Lab Results 06/06/18 06/07/18 06/07/18 03:27 01:20 01:20 WBC 5.7 Hgb 10.4 L Hct 32.0 L Plt Count 138 L Sodium 134 L 135 L Potassium 3.9 4.1 Chloride 98 100 Carbon Dioxide 26 30 H BUN 35 H 33 H Creatinine 1.94 H 1.74 H Glucose 99 107 H Calcium 8.8 8.7 Active Medications Albuterol Sulfate (Proventil Neb) 2.5 mg IH Q2H PRN; Protocol PRN Reason: Shortness Of Breath/Wheezing Stop: 12/05/18 03:45 Albuterol/Ipratropium (Duoneb) 3 ml IH [id number] [facility] Stop: 12/05/18 04:01 Last Admin: 06/07/18 09:24 Dose: 3 ml Aspirin (Aspirin) 81 mg PO DAILY [facility] Stop: 12/05/18 09:01 Last Admin: 06/07/18 10:10 Dose: 81 mg Heparin Sodium (Porcine) (Heparin) 4,000 unit IVP Q6HR PRN PRN Reason: SEE COMMENTS Stop: 12/04/18 20:26 Heparin Sodium (Porcine) (Heparin) 2,000 unit IVP Q6H PRN PRN Reason: SEE COMMENTS Stop: 12/04/18 20:26 Last Admin: 06/06/18 19:17 Dose: 2,000 unit Heparin Sodium/Dextrose (Heparin 25,000 Unit/500 Ml D5w) 25,000 unit in 500 mls @ 20.031 mls/hr IVC .Q24H M[facility]INE; 9.2 UNIT/KG/HR PRN Reason: Protocol Stop: 12/04/18 20:31 Last Admin: 06/07/18 10:18 Dose: 13.29 unit/kg/hr, 28.936 mls/hr Azithromycin 500 mg/ Dextrose 250 mls @ 252 mls/hr IVPB Q24H [facility] Stop: 12/05/18 21:01 Last Infusion: 06/06/18 22:28 Dose: Infused Ceftriaxone Sodium 1,000 mg/ (Sterile Water) 10 mls @ 600 mls/hr IVP DAILY [facility] Stop: 12/05/18 09:01 Last Infusion: 06/07/18 10:24 Dose: Infused Sodium Chloride (0.9 % Sodium Chloride) 1,000 mls @ 100 mls/hr IVC .Q10H [facility] Stop: 12/06/18 09:01 Last Admin: 06/07/18 02:35 Dose: 100 mls/hr Levothyroxine Sodium (Synthroid) 125 mcg PO 0630 [facility] Stop: 12/05/18 06:31 Last Admin: 06/07/18 05:32 Dose: 125 mcg Loratadine (Claritin) 10 mg PO DAILY [facility] Stop: 12/05/18 09:01 Last Admin: 06/07/18 10:10 Dose: 10 mg Metoprolol Succinate (Toprol Xl) 12.5 mg PO DAILY [facility] Stop: 12/05/18 09:46 Last Admin: 06/07/18 10:11 Dose: 12.5 mg Naloxone HCl (Narcan) 0.4 mg IVP Q2MIN PRN PRN Reason: SEE COMMENTS Stop: 12/05/18 03:37 - Imaging and Cardiology Echo: report reviewed Other Results: 12 hour tele: avg HR 89 SR with RBBB - EKG Interpretation EKG results cardiology: personally reviewed Consult Discharge Plan - Plan [facility]errals: [facility] [Primary Care Provider] -
[2018-06-07] MEDS ORDERED: Ipratropium/Albuterol Neb 3 ML ONE (11:47)
--- NOTE | 2018-06-07 11:54 | Internal Med Progress Note ---
Hospitalist Progress Note - Encounter Date of Encounter: 06/07/18 Time of Encounter: 11:02 - Subjective Interval History: Patient seen and examined this morning. shortness of breath better. No fever, chill, N/V/D. Denies chest pain, abdominal pain or bowel or bladder complain. Hasn't had BM. - Exam Vitals: Temp Pulse Resp BP Pulse Ox 99.5 F 96 19 109/65 91 06/07/18 10:31 06/07/18 10:31 06/07/18 10:31 06/07/18 10:31 06/07/18 10:31 Exam: Gen: In no acute distress. conversant Respiratory exam: Good air entry. Has wheezing present b/l Cardiovascular exam: RRR, +S1, +S2. no murmur, gallop, rubs. GI/Abdominal exam: Non-tender, Non-distended, normal bowel sounds, soft, no peritoneal signs. Extremities exam: full ROM, 1+ pedal edema, warm, pulses palpable and symmetrical in both Upper and lower extremities. no calf tenderness, cyanotic Neurological exam: CN II-XII intact, AO X3, no focal deficits. Skin exam: No skin rash, ulcer, purpura or ecchymosis. - Assessment and Plan (1) NSTEMI (non-ST elevated myocardial infarction) Current Visit: Yes Status: Acute (2) IVAN (acute kidney injury) Current Visit: Yes Status: Acute (3) Pneumonia Current Visit: Yes Status: Acute (4) DVT prophylaxis Current Visit: Yes Status: Acute - Summary of Assessment and Plan Summary of Assessment and Plan: NSTEMI (non-ST elevated myocardial infarction) - ECHO with EF of 55%, Mild LV dysfunction and apical septal wall hypokinesis. - troponins downtrending. 14-->12-->8. Currently chest pain free. - c/w heparin gtt, ASA and toprol xl. - Patient has statin allergy but unknown reaction to atorvastatin and simvastatin; Will start pravastatin on discharge given low incidence of myopathy. Is non formulary. - Cardiology following. Appreciate recommendations. Patient now agrees to [facility]. Plan for on saturday. Pneumonia - Masslike consolidation RUL and RLL on Chest CT. f/u to resolution given morphology. - c/w duonebs to q4h. - c/w Ceftriaxone/azithromycin for CAP. IVAN - Uknwn baseline. - Stable vitals. - BUN/Hospitality Services Manager better today. - Uric acid 6.7. Fena 0.4% however FeUrea 42.6% possible prerenal. Has some proteinuria. c/w IVF for now. f/u Renal recommendations. - Strict I/O - Avoid nephrotoxins - Nephrology following. Recommendations appreciated. Mucomyst for renal prophylasix one [facility] date set. Anemia - Unknwn baseline - Now stable. possibly delusional. Minimally decreased platelet within lab error. - On heparin drip. - May have CKD at baseline. - f/u Iron studies. Hematology consulted. Elevated CK - Had fall and was on floor for while. Also with IVAN. Likely has some component of rhabdomylolysis - c/w IVF. DVT prophylaxis - on Heparin drip - Time Spent with Patient Total time spent is greater than 50% in coordination of care (as documented) at patient's floor/unit and/or counseling patient: Internal Medicine: Result - Labs CBC & Chem 7: 06/07/18 01:20 06/07/18 01:20 Labs: Short CBC 06/07/18 Range/Units 01:20 WBC 5.7 (4.3-11.1) K/mcL Hgb 10.4 L (12.9-16.9) g/dL Hct 32.0 L (37.5-50.1) % Plt Count 138 L (140-400) K/mcL Neutrophils # 4.0 (1.6-8.9) K/mcL BMP 06/06/18 06/07/18 03:27 01:20 Sodium 134 L 135 L Potassium 3.9 4.1 Chloride 98 100 Carbon Dioxide 26 30 H BUN 35 H 33 H Creatinine 1.94 H 1.74 H Glucose 99 107 H Calcium 8.8 8.7 Urine 06/07/18 Range/Units 04:57 Urine Color Yellow (Yellow) Urine Clarity Cloudy A (Clear) Urine pH 6.0 (5.0-8.0) pH Units Ur Specific [place] 1.007 L (1.010-1.025) Urine Protein 100 H (Neg-Trace) mg/dL Urine Glucose (UA) Normal (Normal) mg/dL - ABG Interpretation ABG results: PT/INR, D-dimer PT 14.0 Seconds (9.4-12.1) H 06/05/18 04:26 Consult Discharge Plan - Plan Referrals: [facility] [Primary Care Provider] - (3) Pneumonia Qualifiers: Pneumonia type: due to unspecified organism Laterality: right Lung location : upper lobe of lung Qualified Code(s): J18.1 - Lobar pneumonia, unspecified organism
[2018-06-07] MEDS: Azithromycin 500 MG in D5% in Water 250 ML IVPB SCH (20:34)
[2018-06-08] MEDS: 0.9 % Sodium Chloride 1,000 ML IVC SCH ×2 (00:20→19:43)
[2018-06-08] MEDS: methylPREDNISolone 125 MG/2 ML VIAL IVP SCH ×4 (01:42→23:13)
[2018-06-08] MEDS ORDERED: Furosemide 40 MG/4 ML VIAL ONE (01:47)
[2018-06-08] MEDS ORDERED: Furosemide 40 MG/4 ML VIAL IVP ONE ×2 (01:48→06:00)
[2018-06-08] MEDS ORDERED: Nitroglycerin 1 INCH/GM PACKET TP ONE (01:48)
[2018-06-08] MEDS ORDERED: *HR* Morphine 2 MG/ML SYRINGE IVP ONE (01:49)
[2018-06-08] MEDS ORDERED: *HR* Morphine 2 MG/ML SYRINGE IV ONE (02:00)
[2018-06-08] MEDS ORDERED: Artificial Tears SOLN 15 ML BOTTLE BOTH EYES PRN (02:44)
[2018-06-08 03:02] LABS: ABG Base Excess 4 mEq/L (-2 to 3); ABG HCO3 34 mEq/L (21-27); ABG Oxygen Saturation 89 % (95-98); ABG PCO2 86 mmHg (35-45); ABG PO2 73 mmHg (85-104); ABG TCO2 37 mEq/L (20-26); Blood Gas Modality PRVC; Blood Gas PEEP 8 cm H2O; Blood Gas Respiration Rate 12; Blood Gas VT 500 cc
[2018-06-08] MEDS: Heparin 25,000 UNIT/500 ML D5W 25,000 UNIT/500 ML BAG IVC SCH ×2 (03:12→20:22)
[2018-06-08] MEDS: Dexmedetomidine HCl 400 MCG/100 ML MLS IVC SCH ×4 (03:15→17:51)
--- NOTE | 2018-06-08 03:15 | Event Note ---
Date of Encounter: 06/08/18 Time of Encounter: 01:45 I was called by RN for concerns of wheezing and tachycardia. I gave some preliminary orders and came to the bedside to see patient shortly thereafter. On my assessment of the patient, he was in obvious respiratory distress and extremis. Upon quick exam and assessment, patient had evidence of flash pulmonary edema in my opinion. I ordered some Lasix, Nitropaste, and IV morphine as well as BiPAP in hopes of stabilizing patient. The above medications were given and BiPAP was placed. Despite those measures, he continued to decline rapidly. He had a respiratory rate of 48-50 breaths per minute, declining oxygen saturation, and depressed mental state. I monitored him clinically at the bedside for several minutes with his nurse and respiratory therapy present. Because of rapidly declining respiratory state and mental/cognitive state, I elected to proceed with intubation at that moment so as to avoid respiratory arrest. I therefore summoned supporting staff and respiratory therapy for intubation at that time. He was premedicated with Etomidate 10 mg and Versed 5 mg total. He was intubated successfully by respiratory therapy on the second attempt under my direct supervision. Once airway was secured, Michaels catheter and OG tube were placed and patient was moved to the ICU for ongoing critical care and management. Current exam: Heart rate 108; RR 18; BP 105/75 Constitutional: Intubated sedated HEENT: ET tube and OG in place. Chest: Has crackles throughout all lung gonzalez with bilateral breath sound auscultation. Tachycardic rhythm. Abdomen: Soft, nontender, positive bowel sounds. Extremities: 1-2+ pitting edema Chest x-ray prior to intubation: Pulmonary edema Impression/Plan: 1. Acute respiratory failure: Status post failed BiPAP and conservative measures for flash pulmonary edema. He is now intubated and on mechanical ventilation as detailed above. Patient transferred to ICU for ongoing critical care management. Consult surface supply breathing apparatus in the morning for ongoing ICU care. 2. Flash pulmonary edema: Intubation and mechanical ventilation as above. Continue diuresis with close monitoring of renal function and fluid balance. Ongoing cardiac care as per cardiology consultation. 3. NSTEMI: Left heart catheterization and further intervention as per cardiology. Note: 65 minutes critical care time thus far with patient.
[2018-06-08] MEDS ORDERED: Dexmedetomidine HCl 400 MCG/100 ML MLS IVC ONE (03:21)
[2018-06-08] MEDS: Ipratropium/Albuterol Neb 3 ML IH SCH ×6 (03:37→23:41)
[2018-06-08] MEDS: Artificial Tears SOLN 15 ML BOTTLE BOTH EYES SCH ×6 (03:43→23:12)
[2018-06-08 03:53] LABS: Basophils % 0.6 %; Eosinophils % 0.6 %; Hematocrit 29.6 % (37.5-50.1); Hemoglobin 9.5 g/dL (12.9-16.9); Lymphocytes # 0.1 K/mcL (0.6-4.6); Lymphocytes % 2.8 %; Mean Corpuscular HGB Conc 32.1 g/dL (31.6-35.5); Mean Corpuscular Hemoglobin 29.6 pg (28.0-33.3); Mean Corpuscular Volume 92.2 fL (83.0-100.0); Mean Platelet Volume 10.5 fL (9.4-12.4); Monocytes # 0.3 K/mcL (0.0-1.3); Monocytes % 6.6 %; Neutrophils # 4.4 K/mcL (1.6-8.9); Platelet Count 165 K/mcL (140-400); Red Blood Count 3.21 M/mcL (4.19-5.50); Red Cell Distribution Width 14.6 % (11.5-14.5); Segmented Neutrophils % 87.4 %
[2018-06-08 04:16] LABS: Calcium 8.8 mg/dL (8.6-10.3); Potassium 4.2 mEq/L (3.5-5.1)
[2018-06-08 04:17] LABS: % Iron Saturation 9 % (20-55); Iron 18 mcg/dL (65-175); Transferrin 145 mg/dL (203-362)
[2018-06-08 04:22] LABS: Platelet Estimate Normal (Normal)
[2018-06-08 04:32] LABS: Ferritin 573 ng/mL (20-250)
--- NOTE | 2018-06-08 05:22 | Procedure Note ---
Date of procedure: 06/08/18 Pre-op diagnosis: Hypotension Post-op diagnosis: same Procedure: Left femoral central venous catheter: The procedure was considered emergent, no family was able to be contacted for consent. The right and left femoral areas were surveyed using ultrasound and the left femoral area was deemed to be a suitable target. The area was cleaned and draped in the usual sterile fashion. The skin and soft tissues were anesthetized using 4 mL 1% lidocaine. Under ultrasound guidance the introducer needle was advanced into the left femoral vein. Dark red, nonpulsatile blood flow was returned. The guidewire was advanced to the needle into the vein without resistance. The needle was then removed and the ultrasound was used to confirm the wire within the vein. A je in the skin was made, and the skin and soft tissues were dilated. A 20cm triple lumen catheter was advanced over the guidewire and into the vein. The guidewire was removed intact. All 3 ports were tested and shown to draw blood and flush easily. The catheter was sutured in place. Biopatch and sterile dressing were applied. The patient tolerated the procedure well, there are no immediate complications. Anesthesia: GETA, local (1% lidocaine - 4cc) Surgeon: Fermín Nettles Was there an medical receptionist assistant present: No Estimated blood loss (cc): 5 IV fluids (cc): 10 Specimen: none Pathology: none sent Condition: critical Disposition: ICU
[2018-06-08 05:31] LABS: ABG Base Excess 3 mEq/L (-2 to 3); ABG HCO3 30 mEq/L (21-27); ABG Oxygen Saturation 94 % (95-98); ABG PCO2 53 mmHg (35-45); ABG PH 7.36 pH Units (7.32-7.45); ABG PO2 76 mmHg (85-104); ABG TCO2 31 mEq/L (20-26); Blood Gas Modality PRVC; Blood Gas PEEP 8 cm H2O; Blood Gas Respiration Rate 18; Blood Gas VT 500 cc
[2018-06-08] MEDS: Pantoprazole 40 MG VIAL IVP SCH (05:45)
[2018-06-08] MEDS: Norepinephrine 4 MG in D5% in Water 250 ML IVC SCH (05:45)
[2018-06-08] MEDS ORDERED: *HR* Dextrose 50 % in Water (Syg) 50 ML SYRINGE IVP PRN (05:56)
[2018-06-08] MEDS ORDERED: D5% in Water 1,000 ML IVC PRN (05:56)
[2018-06-08] MEDS ORDERED: Dextrose Gel 15 GM/37.5 ML TUBE PO PRN ×2 (05:56)
[2018-06-08] MEDS: Insulin LISPRO 300 UNITS/3 ML VIAL SQ SCH ×4 (06:14→23:12)
--- NOTE | 2018-06-08 07:24 | Pulmonology Consult Note ---
<Rio Mendez R - Last Filed: 06/08/18 13:05> Date of Encounter: 06/08/18 Time of Encounter: 07:30 Assessment and Plan (1) Acute respiratory failure Current Visit: Yes Status: Acute Acute respiratory failure with hypoxia developed overnight, chest x-ray was consistent with pulmonary edema. Patient received Lasix and was trialed on BiPAP with persistence of respiratory rate in the 40s. Patient was subsequently intubated and transferred to the ICU. Sedated with propofol, will grimace to pain, not following commands on sedation. Patient remains sedated, intubated, and ventilated. Will plan for ventilation until C done tomorrow. Will assess extubation readiness following. Transition from propofol to Precedex and fentanyl Obtain EKG and Haldol every 6 when necessary Qualifiers: Respiratory failure complication: hypoxia Qualified Code(s): J96.01 - Acute respiratory failure with hypoxia (2) NSTEMI (non-ST elevated myocardial infarction) Current Visit: Yes Status: Acute Show troponins initially greater than 40 at the [place] urgent care, have been down trending since admission. Continues to trend downward today with most recent troponin repeat of 6.35 Cardiology has been consult it is following, initial plan was for LHC tomorrow. Have discussed recent developments with cardiology today, appreciate their recommendations. They will plan for reevaluation of patient in the a.m. and plan for LHC tomorrow pending their assessment. We will continue heparin drip, however patient does have downtrending hemoglobin , we will follow closely (3) Pneumonia Current Visit: Yes Status: Acute Community-acquired pneumonia with right-sided infiltrate identified on chest x- ray. Legionella and strep pneumonia antigens negative, blood cultures negative growth to date. We will continue with azithromycin and ceftriaxone (day 4). Patient currently intubated and ventilated Every 4 hours Servando Qualifiers: Pneumonia type: due to unspecified organism Laterality: right Lung location: upper lobe of lung Qualified Code(s): J18.1 - Lobar pneumonia, unspecified organism (4) IVAN (acute kidney injury) Current Visit: Yes Status: Acute (5) Anemia Current Visit: Yes Status: Acute Downtrending hemoglobin since admission 11.5> 10.3> 10.4>9.5. H/H was stable yesterday with decrease again today. no evidence of active bleeding. Hematology oncology were consult, appreciate their recommendations. We will continue to trend H/H and consider GI consultation for possible GI bleed. Qualifiers: Anemia type: unspecified type Qualified Code(s): D64.9 - Anemia, unspecified (6) Elevated troponin Current Visit: Yes Status: Acute Troponin initially elevated at greater than 40, has been down trending since admission. Repeat troponin this a.m. shows continue downward trend. Cardiology is following and planning for left heart catheter tomorrow (7) Elevated CK Current Visit: Yes Status: Acute Initial CK of 1326 on 06/04, repeated this a.m. found to be normalizing at 319. Initial elevation may have contributed to a IVAN. We will treat the conditions that likely lead to the elevated CK as outlined above (8) DVT prophylaxis Current Visit: Yes Status: Acute Is on heparin drip History of Present Illness Consult date: 06/08/18 Requesting physician: Fermín Nettles Reason for consult: other (Pulmonary edema) Chief complaint: Shortness of breath History of present illness: Patient presented from [facility] on 06/04/2018 for evaluation of weakness, shortness of breath. Patient was found to have elevated troponin at [place] of greater than 40. Was sent to [facility] for further evaluation and management. Patient was found to have an NSTEMI, KIERA, pneumonia. Heparin drip was started on 06/04/2018. Cardiology was consulted and patient initially refused [facility], however R Was planned for Saturday. Patient developed worsening shortness of breath overnight, chest x-ray was consistent with pulmonary edema. Patient was tried on BiPAP with respiratory rate remaining in the 40s. Subsequently patient was intubated overnight and transferred to the ICU. Has received 2 doses of IV Lasix. Past Med Surg Social Fam HX - Past Medical History Medical history: arthritis, COPD, GERD, hypertension, thyroid disease Additional medical history: Aneurysm Psychiatric history: no psych history - Past Surgical History Surgical History: herniorrhaphy, vascular surgery, other (AAA repair) Additional surgical history: hernia repair. eye implants - Social History Smoking Status: Former smoker Smokeless Tobacco Status: No Alcohol use: none Drug use: none - Family History Mother History Unknown: Yes Living Status: Father History Unknown: Yes Living Status: Medications and Allergies Cetirizine HCl [All Day Allergy] 10 mg PO DAILY 06/04/18 [History] Cholecalciferol (D-3) [Vitamin D] 2,000 unit PO DAILY 06/04/18 [History] Levothyroxine [Synthroid] 125 mcg PO 0630 06/04/18 [History] Losartan [Cozaar] 25 mg PO DAILY 06/04/18 [History] Omeprazole [PriLOSEC] 20 mg PO DAILY 06/04/18 [History] Triamterene/Hydrochlorothiazid [Dyazide 37.5-25 Capsule] 1 cap PO DAILY [History] 3 Allergy/AdvReac Type Severity Reaction Status Date / Time atorvastatin Allergy See Verified 06/04/18 16:53 Comments simvastatin Allergy See Verified 06/04/18 16:53 Comments ROS unobtainable: due to endotracheal tube All Systems: The remainder of the systems were reviewed and are negative Physical Examination Vital Signs: Vital Signs, Last 4 Hours Temp Pulse Resp BP Pulse Ox 06/08/18 06:00 78 18 94/64 97 06/08/18 05:34 18 77/54 92 06/08/18 05:00 90 14 86/53 91 06/08/18 04:00 99.3 F 82 17 86/63 93 06/08/18 03:52 114 12 110/61 89 General appearance: other (Sedated and intubated) Eyes: nonicteric ENT: oropharynx moist, other (ET tube in place) Neck: supple Effort: other (Ventilated) Inspection: normal Auscultation: bilateral: diminished breath sounds, rales Cardiovascular: regular rate and rhythm Gastrointestinal: normoactive bowel sounds, soft, non-distended Integumentary: normal Extremities: no cyanosis, no edema, pink and warm Musculoskeletal: no deformities Gait: normal posture unable to assess due to mental status other (Unable to assess due to mental status) Ventilator Settings Ventilator Settings: Ventilator Settings, Last 8 Hours Ventilator Tidal Volume 500 Setting Ventilator Tidal Volume 500 Setting Ventilator Tidal Volume 500 Setting Ventilator Tidal Volume 500 Setting Ventilator Tidal Volume 500 Setting Ventilator Tidal Volume 500 Setting Ventilator Tidal Volume 500 Setting Ventilator Tidal Volume 500 Setting Ventilator Respiratory Rate 12 Setting Ventilator Respiratory Rate 18 Setting Ventilator Respiratory Rate 18 Setting Ventilator Respiratory Rate 12 Setting Ventilator Respiratory Rate 12 Setting Ventilator Respiratory Rate 12 Setting Ventilator Respiratory Rate 18 Setting Ventilator Respiratory Rate 12 Setting Actual Respiratory Rate 18 Actual Respiratory Rate 18 Positive End Expiratory 8 Pressure Positive End Expiratory 8 Pressure Positive End Expiratory 8 Pressure Positive End Expiratory 8 Pressure Positive End Expiratory 8 Pressure Positive End Expiratory 8 Pressure Positive End Expiratory 8 Pressure Positive End Expiratory 8 Pressure Peak Inspiratory Airway 22 Pressure Peak Inspiratory Airway 26 Pressure Results - Laboratory Findings CBC and BMP: 06/08/18 03:36 06/08/18 03:36 ABG ABG pH 7.36 pH Units (7.32-7.45) D 06/08/18 05:29 ABG pCO2 53 mmHg (35-45) H D 06/08/18 05:29 ABG pO2 76 mmHg (85-104) L 06/08/18 05:29 ABG O2 Saturation 94 % (95-98) L 06/08/18 05:29 PT/INR, D-dimer PT 14.0 Seconds (9.4-12.1) H 06/05/18 04:26 Abnormal lab findings: Abnormal lab results RBC 3.21 M/mcL (4.19-5.50) L 06/08/18 03:36 Hgb 9.5 g/dL (12.9-16.9) L 06/08/18 03:36 Hct 29.6 % (37.5-50.1) L 06/08/18 03:36 RDW 14.6 % (11.5-14.5) H 06/08/18 03:36 Lymphocytes # 0.1 K/mcL (0.6-4.6) L 06/08/18 03:36 PT 14.0 Seconds (9.4-12.1) H 06/05/18 04:26 APTT 45.6 Seconds (26.0-36.0) H 06/05/18 04:26 ABG pCO2 53 mmHg (35-45) H D 06/08/18 05:29 ABG pO2 76 mmHg (85-104) L 06/08/18 05:29 ABG HCO3 30 mEq/L (21-27) H 06/08/18 05:29 ABG Total CO2 31 mEq/L (20-26) H 06/08/18 05:29 ABG O2 Saturation 94 % (95-98) L 06/08/18 05:29 Sodium 134 mEq/L (136-145) L 06/08/18 03:36 BUN 31 mg/dL (8-23) H 06/08/18 03:36 Creatinine 1.68 mg/dL (0.70-1.30) H 06/08/18 03:36 Est GFR ( Amer) 47 (> 60) L 06/08/18 03:36 Est GFR (Non-Af Amer) 39 (> 60) L 06/08/18 03:36 Glucose 145 mg/dL (70-105) H 06/08/18 03:36 POC Glucose 130 mg/dL (70-99) H 06/07/18 20:22 Iron 18 mcg/dL (65-175) L 06/08/18 03:36 % Saturation 9 % (20-55) L 06/08/18 03:36 Transferrin 145 mg/dL (203-362) L 06/08/18 03:36 Ferritin 573 ng/mL (20-250) H 06/08/18 03:36 AST 76 Units/L (13-39) H 06/05/18 03:55 Creatine Kinase 319 Units/L (30-223) H 06/08/18 03:36 Troponin I 8.45 ng/mL (< 0.04) H* 06/05/18 15:50 B-Natriuretic Peptide 917 pg/mL (Less than 100) H 06/08/18 03:36 Albumin 3.4 g/dL (3.5-5.7) L 06/05/18 03:55 Albumin/Globulin Ratio 1.0 (1.1-2.2) L 06/05/18 03:55 HDL Cholesterol 39 mg/dL (40-59) L 06/05/18 03:55 Urine Clarity Cloudy (Clear) A 06/07/18 04:57 Ur Specific [place] 1.007 (1.010-1.025) L 06/07/18 04:57 Urine Protein 100 mg/dL (Neg-Trace) H 06/07/18 04:57 Urine Blood Small (Negative) H 06/07/18 04:57 Urine Microscopic WBC 5-15 per hpf (0-3) H 06/07/18 04:57 Ur Squamous Epith Cells Many per lpf (None-Few) H 06/07/18 04:57 Urine Yeast Few per hpf (None Seen) H 06/07/18 04:57 Stool Occult Blood Positive (Negative) A 06/07/18 23:10 - Clinical Findings Intake & Output: Intake & Output 06/07/18 06/07/18 06/08/18 15:59 23:59 07:59 Intake Total 1766 / 1766 250 / 250 1680.5 / 1680.5 Output Total 360 / 360 300 / 300 50 / 50 Balance 1406 / 1406 -50 / -50 1630.5 / 1630.5 Weight 113.6 kg Consult Discharge Plan - Plan [facility]errals: [facility] Care Provider[facility] - <Vadim Pruitt - Last Filed: 06/08/18 22:01> Date of Encounter: 06/08/18 All Systems: The remainder of the systems were reviewed and are negative Physical Examination Vital Signs: Vital Signs, Last 4 Hours Temp Pulse Resp BP Pulse Ox 06/08/18 15:00 18 95/60 94 06/08/18 14:02 18 102/64 90 06/08/18 14:00 75 18 96/60 90 06/08/18 13:00 70 18 102/64 94 06/08/18 12:00 98.4 F 70 18 105/63 94 Ventilator Settings Ventilator Settings: Ventilator Settings, Last 8 Hours Ventilator Tidal Volume 500 Setting Ventilator Tidal Volume 500 Setting Ventilator Tidal Volume 500 Setting Ventilator Tidal Volume 500 Setting Ventilator Tidal Volume 500 Setting Ventilator Tidal Volume 500 Setting Ventilator Tidal Volume 500 Setting Ventilator Tidal Volume 500 Setting Ventilator Tidal Volume 500 Setting Ventilator Tidal Volume 500 Setting Ventilator Tidal Volume 500 Setting Ventilator Respiratory Rate 18 Setting Ventilator Respiratory Rate 18 Setting Ventilator Respiratory Rate 18 Setting Ventilator Respiratory Rate 18 Setting Ventilator Respiratory Rate 18 Setting Ventilator Respiratory Rate 18 Setting Ventilator Respiratory Rate 18 Setting Ventilator Respiratory Rate 18 Setting Ventilator Respiratory Rate 18 Setting Ventilator Respiratory Rate 18 Setting Ventilator Respiratory Rate 18 Setting Actual Respiratory Rate 18 Actual Respiratory Rate 18 Actual Respiratory Rate 18 Actual Respiratory Rate 18 Actual Respiratory Rate 18 Actual Respiratory Rate 18 Actual Respiratory Rate 18 Actual Respiratory Rate 18 Actual Respiratory Rate 18 Actual Respiratory Rate 18 Actual Respiratory Rate 18 Positive End Expiratory 8 Pressure Positive End Expiratory 8 Pressure Positive End Expiratory 8 Pressure Positive End Expiratory 8 Pressure Positive End Expiratory 8 Pressure Positive End Expiratory 8 Pressure Positive End Expiratory 8 Pressure Positive End Expiratory 8 Pressure Positive End Expiratory 8 Pressure Positive End Expiratory 8 Pressure Positive End Expiratory 8 Pressure Peak Inspiratory Airway 21 Pressure Peak Inspiratory Airway 24 Pressure Peak Inspiratory Airway 24 Pressure Peak Inspiratory Airway 24 Pressure Peak Inspiratory Airway 22 Pressure Peak Inspiratory Airway 23 Pressure Peak Inspiratory Airway 23 Pressure Peak Inspiratory Airway 23 Pressure Results - Laboratory Findings CBC and BMP: 06/08/18 03:36 06/08/18 03:36 ABG ABG pH 7.36 pH Units (7.32-7.45) D 06/08/18 05:29 ABG pCO2 53 mmHg (35-45) H D 06/08/18 05:29 ABG pO2 76 mmHg (85-104) L 06/08/18 05:29 ABG O2 Saturation 94 % (95-98) L 06/08/18 05:29 PT/INR, D-dimer PT 14.0 Seconds (9.4-12.1) H 06/05/18 04:26 Abnormal lab findings: Abnormal lab results RBC 3.21 M/mcL (4.19-5.50) L 06/08/18 03:36 Hgb 9.5 g/dL (12.9-16.9) L 06/08/18 03:36 Hct 29.6 % (37.5-50.1) L 06/08/18 03:36 RDW 14.6 % (11.5-14.5) H 06/08/18 03:36 Lymphocytes # 0.1 K/mcL (0.6-4.6) L 06/08/18 03:36 PT 14.0 Seconds (9.4-12.1) H 06/05/18 04:26 APTT 45.6 Seconds (26.0-36.0) H 06/05/18 04:26 ABG pCO2 53 mmHg (35-45) H D 06/08/18 05:29 ABG pO2 76 mmHg (85-104) L 06/08/18 05:29 ABG HCO3 30 mEq/L (21-27) H 06/08/18 05:29 ABG Total CO2 31 mEq/L (20-26) H 06/08/18 05:29 ABG O2 Saturation 94 % (95-98) L 06/08/18 05:29 Sodium 134 mEq/L (136-145) L 06/08/18 03:36 BUN 31 mg/dL (8-23) H 06/08/18 03:36 Creatinine 1.68 mg/dL (0.70-1.30) H 06/08/18 03:36 Est GFR ( Amer) 47 (> 60) L 06/08/18 03:36 Est GFR (Non-Af Amer) 39 (> 60) L 06/08/18 03:36 Glucose 145 mg/dL (70-105) H 06/08/18 03:36 POC Glucose 130 mg/dL (70-99) H 06/07/18 20:22 Venous Ioniz Calcium 1.14 mmol/L (1.15-1.35) L 06/08/18 14:21 Iron 18 mcg/dL (65-175) L 06/08/18 03:36 % Saturation 9 % (20-55) L 06/08/18 03:36 Transferrin 145 mg/dL (203-362) L 06/08/18 03:36 Ferritin 573 ng/mL (20-250) H 06/08/18 03:36 AST 76 Units/L (13-39) H 06/05/18 03:55 Creatine Kinase 319 Units/L (30-223) H 06/08/18 03:36 Troponin I 6.35 ng/mL (< 0.04) H* 06/08/18 08:12 B-Natriuretic Peptide 917 pg/mL (Less than 100) H 06/08/18 03:36 Albumin 3.4 g/dL (3.5-5.7) L 06/05/18 03:55 Albumin/Globulin Ratio 1.0 (1.1-2.2) L 06/05/18 03:55 HDL Cholesterol 39 mg/dL (40-59) L 06/05/18 03:55 Urine Clarity Cloudy (Clear) A 06/07/18 04:57 Ur Specific [place] 1.007 (1.010-1.025) L 06/07/18 04:57 Urine Protein 100 mg/dL (Neg-Trace) H 06/07/18 04:57 Urine Blood Small (Negative) H 06/07/18 04:57 Urine Microscopic WBC 5-15 per hpf (0-3) H 06/07/18 04:57 Ur Squamous Epith Cells Many per lpf (None-Few) H 06/07/18 04:57 Urine Yeast Few per hpf (None Seen) H 06/07/18 04:57 Stool Occult Blood Positive (Negative) A 06/07/18 23:10 - Microbiology Findings Microbiology Findings: Microbiology, Last 48 Hours 06/08/18 06:04 Legionella Antigen - Final Urine,[place] Streptococcus pneumoniae Antigen (M - Final - Clinical Findings Intake & Output: Intake & Output 06/07/18 06/08/18 06/08/18 23:59 07:59 15:59 Intake Total 250 / 250 1680.5 / 1680.5 467 / 467 Output Total 300 / 300 50 / 50 700 / 700 Balance -50 / -50 1630.5 / 1630.5 -233 / -233 Weight 113.6 kg - Attending Attestation I saw and evaluated this patient and my medical decision-making was reviewed with the Resident Physician. I agree with the documented findings, disposition and treatment plan as described except to the extent set forth below. We independently had [id number] contact with the patient I spent 40 minutes of Critical Care time with this patient. It involved decision making of high complexity to assess, manipulate, and support vital organ system failure and/or to prevent further life threatening deterioration of the patient's condition. The time involved in the performance of separately reportable procedures was not counted toward critical care time. Patient seen and examined at bedside Labs, radiology, chart personally reviewed. Management was reviewed during multidisciplinary critical care rounds. 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 Pulm: Was intubated because of sudden cardiogenic pulmonary edema worsening cardiac output due to end STEMI patient will be going for left heart catheter tomorrow cardiology wanted him intubated for the procedure. Will hold of diuresis for now adjusted the PEEP therapy the ventilator settings patient has acceptable oxygenation and ventilation patient is slightly acidotic on the blood gas will repeat a blood gas tomorrow in the morning Cards: Acute congestive heart failure secondary to NSTEMI will hold of diuresis to continue positive pressure ventilation will help with afterload and preload. Most likely left heart catheterization tomorrow FEN-GI: Nothing by mouth for now Renal: Chronic Kidney Injury Will Keep Him Slightly Positive Because of Upcoming Contrast Load for the Left Heart Catheterization. ID: Continue ceftriaxone and azithromycin for possible pneumonia but this acute worsening is due to pulmonary edema so will not broaden the coverage of antibiotics for now Heme/Onc: Anemia appreciate heme Onc consult, patient is on heparin for acute coronary syndrome Endo: Glucose Monitored Integ/MSK: Skin Care per routine ICU Nursing Protocol to prevent ulcers. Lines: All lines examined without evidence of infection : Dispo: Critically ill CODE: [id number]
[2018-06-08] MEDS ORDERED: *HR* Midazolam HCl 5 MG/5 ML VIAL IVP ONE (08:18)
[2018-06-08] MEDS: FentaNYL (PF) 1,000 MCG in 0.9 % Sodium Chloride 80 ML IVC SCH (08:51)
[2018-06-08] MEDS: cefTRIAXone 1,000 MG in Water for inj. (sterile) 20 ML 10 ML IVP SCH (08:53)
[2018-06-08] MEDS: Chlorhexidine Rinse 15 ML MOUTHWASH MM SCH ×2 (09:11→20:21)
[2018-06-08] MEDS: Aspirin 81 MG TAB.CHEW PO SCH (09:11)
[2018-06-08] MEDS: Metoprolol XL (24 HR) Succ 25 MG TAB.ER.24H PO SCH (09:13)
[2018-06-08] MEDS: Loratadine 10 MG TABLET PO SCH (09:14)
--- NOTE | 2018-06-08 09:33 | Oncology Inp Consult Note ---
Date of Encounter: 06/08/18 Time of Encounter: 10:00 Assessment and Plan (1) NSTEMI (non-ST elevated myocardial infarction) Status: Acute Assessment and plan: Patient with acute cardiac event, anemia thrombocytopenia worsened status post hospitalization per hospitalist patient had been continued on hydration prior to declined from 11.5 to around 10 g. Is currently intubated, received diuretics? overnight. MAnagement per cardiology. (2) Anemia Status: Acute Assessment and plan: Anemia workup in progress possible dilutional, changes due to fluid shift, renal insufficiency. We will obtain folic acid B12 serum protein electrophoresis. He is continued on anticoagulation ferritin though normal cannot rule out to acute GI bleed. Continue to monitor hemoglobin hematocrit, transfuse as necessary. Thrombocytopenia has been stable, most recent platelet count is within normal limits. CT angiogram did not show any abnormalities in the liver, nomegalyreported. Right lung consolidation to be monitored in subsequent scans. [facility] Qualifiers: Anemia type: unspecified type Qualified Code(s): D64.9 - Anemia, unspecified - Data of Consult Requesting Physician: Ricardo Quinones MD Primary Care Provider: PCP [place] - Consult Narrative Reason for consult: anemia History of present illness: Mr. Jane is a 87 year old male referred from [facility] with EKG changes suggestive off myocardial infarction, troponin was elevated. His medical history significant for arthritis COPD gastric schedule reflects disease hypertension. He had a CT scan of the chest at that showed findings consistent concerning for infiltrates. Patient had received fluids in the past few days, hemoglobin had declined since admission and it was over 11 g to around 10 and hematology was consulted. Platelet had dropped around 1 30,000. He is on anticoagulation awaiting further cardiac workup. Serum ferritin has come back around 500. He has renal insufficiency. He has been intubated on mechanical ventilation, due to worsening dyspnea. CXR-06/08/18 worsening interstitial infiltrates/edema volume overload. CT scan angio 06/04/18 of the chest right lower lung consolidative findings. Past Med Surg Social Fam HX - Past Medical History Medical history: arthritis, COPD, GERD, hypertension, thyroid disease Additional medical history: Aneurysm Psychiatric history: no psych history - Past Surgical History Surgical History: herniorrhaphy, vascular surgery, other (AAA repair) Additional surgical history: hernia repair. eye implants - Social History Smoking Status: Former smoker Smokeless Tobacco Status: No Alcohol use: none Drug use: none - Family History Mother History Unknown: Yes Living Status: Father History Unknown: Yes Living Status: Medications and Allergies Cetirizine HCl [All Day Allergy] 10 mg PO DAILY 06/04/18 [History] Cholecalciferol (D-3) [Vitamin D] 2,000 unit PO DAILY 06/04/18 [History] Levothyroxine [Synthroid] 125 mcg PO 0630 06/04/18 [History] Losartan [Cozaar] 25 mg PO DAILY 06/04/18 [History] Omeprazole [PriLOSEC] 20 mg PO DAILY 06/04/18 [History] Triamterene/Hydrochlorothiazid [Dyazide 37.5-25 Capsule] 1 cap PO DAILY [History] 3 Allergy/AdvReac Type Severity Reaction Status Date / Time atorvastatin Allergy See Verified 06/04/18 16:53 Comments simvastatin Allergy See Verified 06/04/18 16:53 Comments ROS unobtainable: due to mental status All systems: reviewed and no additional remarkable complaints except as stated Oncology - Exam - Constitutional Vitals: Temp Pulse Resp BP Pulse Ox 98.5 F 73 18 93/62 93 06/08/18 08:00 06/08/18 07:00 06/08/18 07:00 06/08/18 07:00 06/08/18 07:00 Exam: Patient is intubated on mechanical ventilation. - Head Head exam: Present: atraumatic, normal inspection - ENT Additional comments: Intubation no bleeding in ET tube - Neck Additional comments: no swelling, nl on inspection - Respiratory Respiratory exam: Present: CTAB - Cardiovascular Cardiovascular exam: Present: +S1, +S2 - GI/Abdominal GI/Abdominal exam: Present: soft Additional comments: no masses - Additional comments: ferrer urobag no urine, no hematuria - Neurological Exam Additional comments: not assesed, sedatd - Skin Additional comments: no abnormal bruising Oncology - Results Labs: 3 06/08/18 06/08/18 06/08/18 08:00 05:29 03:36 WBC RBC Hgb Hct MCV MCH MCHC RDW Plt Count MPV Immature Gran % Seg Neutrophils % Lymphocytes % Monocytes % Eosinophils % Basophils % Neutrophils # Lymphocytes # Monocytes # Eosinophils # Basophils # Platelet Estimate PT INR APTT Heparin Anti-Xa, Unfract 0.30 Sample Site L Radial ABG pH 7.36 D ABG pCO2 53 H D ABG pO2 76 L ABG HCO3 30 H ABG Total CO2 31 H ABG O2 Saturation 94 L ABG Base Excess 3 Reilly Test N/A Respiration Rate 18 O2 Delivery Device Adult Vent Blood Gas Modality PRVC Inspired O2 50.0 Tidal Volume 500 PEEP 8 Sodium Potassium Chloride Carbon Dioxide BUN Creatinine Est GFR ( Amer) Est GFR (Non-Af Amer) BUN/Creatinine Ratio Glucose POC Glucose Calculated Osmolality Lactic Acid 1.1 Uric Acid Calcium Magnesium Iron % Saturation Transferrin Ferritin Total Bilirubin AST ALT Alkaline Phosphatase Creatine Kinase Troponin I B-Natriuretic Peptide Serum Total Protein Albumin Globulin Albumin/Globulin Ratio Triglycerides Cholesterol LDL Cholesterol, Calc VLDL Cholesterol, Calc HDL Cholesterol Cholesterol/HDL Ratio Urine Color Urine Clarity Urine pH Ur Specific [place] Urine Protein Urine Glucose (UA) Urine Ketones Urine Blood Urine Nitrite Urine Bilirubin Urine Urobilinogen Ur Leukocyte Esterase Urine Microscopic RBC Urine Microscopic WBC Ur Squamous Epith Cells Urine Bacteria Hyaline Casts Urine Yeast Ur Culture Indicated? Urine Osmolality Urine Creatinine Urine Sodium Urine Urea Nitrogen Stool Occult Blood 3 06/08/18 06/08/18 06/08/18 03:36 03:36 03:36 WBC RBC Hgb Hct MCV MCH MCHC RDW Plt Count MPV Immature Gran % Seg Neutrophils % Lymphocytes % Monocytes % Eosinophils % Basophils % Neutrophils # Lymphocytes # Monocytes # Eosinophils # Basophils # Platelet Estimate PT INR APTT Heparin Anti-Xa, Unfract Sample Site ABG pH ABG pCO2 ABG pO2 ABG HCO3 ABG Total CO2 ABG O2 Saturation ABG Base Excess Reilly Test Respiration Rate O2 Delivery Device Blood Gas Modality Inspired O2 Tidal Volume PEEP Sodium Potassium Chloride Carbon Dioxide BUN Creatinine Est GFR ( Amer) Est GFR (Non-Af Amer) BUN/Creatinine Ratio Glucose POC Glucose Calculated Osmolality Lactic Acid Uric Acid Calcium Magnesium Iron 18 L % Saturation 9 L Transferrin 145 L Ferritin 573 H Total Bilirubin AST ALT Alkaline Phosphatase Creatine Kinase 319 H Troponin I B-Natriuretic Peptide 917 H Serum Total Protein Albumin Globulin Albumin/Globulin Ratio Triglycerides Cholesterol LDL Cholesterol, Calc VLDL Cholesterol, Calc HDL Cholesterol Cholesterol/HDL Ratio Urine Color Urine Clarity Urine pH Ur Specific [place] Urine Protein Urine Glucose (UA) Urine Ketones Urine Blood Urine Nitrite Urine Bilirubin Urine Urobilinogen Ur Leukocyte Esterase Urine Microscopic RBC Urine Microscopic WBC Ur Squamous Epith Cells Urine Bacteria Hyaline Casts Urine Yeast Ur Culture Indicated? Urine Osmolality Urine Creatinine Urine Sodium Urine Urea Nitrogen Stool Occult Blood 3 06/08/18 06/08/18 06/08/18 03:36 03:36 02:58 WBC 5.0 RBC 3.21 L Hgb 9.5 L Hct 29.6 L MCV 92.2 MCH 29.6 MCHC 32.1 RDW 14.6 H Plt Count 165 MPV 10.5 Immature Gran % 2.0 Seg Neutrophils % 87.4 Lymphocytes % 2.8 Monocytes % 6.6 Eosinophils % 0.6 Basophils % 0.6 Neutrophils # 4.4 Lymphocytes # 0.1 L Monocytes # 0.3 Eosinophils # 0.0 Basophils # 0.0 Platelet Estimate Normal PT INR APTT Heparin Anti-Xa, Unfract Sample Site R Radial ABG pH 7.20 L* ABG pCO2 86 H* ABG pO2 73 L ABG HCO3 34 H ABG Total CO2 37 H ABG O2 Saturation 89 L ABG Base Excess 4 H Reilly Test Positive Respiration Rate 12 O2 Delivery Device Adult Vent Blood Gas Modality PRVC Inspired O2 50.0 Tidal Volume 500 PEEP 8 Sodium 134 L Potassium 4.2 Chloride 102 Carbon Dioxide 23 BUN 31 H Creatinine 1.68 H Est GFR ( Amer) 47 L Est GFR (Non-Af Amer) 39 L BUN/Creatinine Ratio 18 Glucose 145 H POC Glucose Calculated Osmolality 287 Lactic Acid Uric Acid Calcium 8.8 Magnesium Iron % Saturation Transferrin Ferritin Total Bilirubin AST ALT Alkaline Phosphatase Creatine Kinase Troponin I B-Natriuretic Peptide Serum Total Protein Albumin Globulin Albumin/Globulin Ratio Triglycerides Cholesterol LDL Cholesterol, Calc VLDL Cholesterol, Calc HDL Cholesterol Cholesterol/HDL Ratio Urine Color Urine Clarity Urine pH Ur Specific [place] Urine Protein Urine Glucose (UA) Urine Ketones Urine Blood Urine Nitrite Urine Bilirubin Urine Urobilinogen Ur Leukocyte Esterase Urine Microscopic RBC Urine Microscopic WBC Ur Squamous Epith Cells Urine Bacteria Hyaline Casts Urine Yeast Ur Culture Indicated? Urine Osmolality Urine Creatinine Urine Sodium Urine Urea Nitrogen Stool Occult Blood 3 06/07/18 06/07/18 06/07/18 23:10 20:22 16:21 WBC RBC Hgb Hct MCV MCH MCHC RDW Plt Count MPV Immature Gran % Seg Neutrophils % Lymphocytes % Monocytes % Eosinophils % Basophils % Neutrophils # Lymphocytes # Monocytes # Eosinophils # Basophils # Platelet Estimate PT INR APTT Heparin Anti-Xa, Unfract Sample Site ABG pH ABG pCO2 ABG pO2 ABG HCO3 ABG Total CO2 ABG O2 Saturation ABG Base Excess Reilly Test Respiration Rate O2 Delivery Device Blood Gas Modality Inspired O2 Tidal Volume PEEP Sodium Potassium Chloride Carbon Dioxide BUN Creatinine Est GFR ( Amer) Est GFR (Non-Af Amer) BUN/Creatinine Ratio Glucose POC Glucose 130 H 110 H Calculated Osmolality Lactic Acid Uric Acid Calcium Magnesium Iron % Saturation Transferrin Ferritin Total Bilirubin AST ALT Alkaline Phosphatase Creatine Kinase Troponin I B-Natriuretic Peptide Serum Total Protein Albumin Globulin Albumin/Globulin Ratio Triglycerides Cholesterol LDL Cholesterol, Calc VLDL Cholesterol, Calc HDL Cholesterol Cholesterol/HDL Ratio Urine Color Urine Clarity Urine pH Ur Specific [place] Urine Protein Urine Glucose (UA) Urine Ketones Urine Blood Urine Nitrite Urine Bilirubin Urine Urobilinogen Ur Leukocyte Esterase Urine Microscopic RBC Urine Microscopic WBC Ur Squamous Epith Cells Urine Bacteria Hyaline Casts Urine Yeast Ur Culture Indicated? Urine Osmolality Urine Creatinine Urine Sodium Urine Urea Nitrogen Stool Occult Blood Positive A 3 06/07/18 06/07/18 06/07/18 11:59 08:06 08:03 WBC RBC Hgb Hct MCV MCH MCHC RDW Plt Count MPV Immature Gran % Seg Neutrophils % Lymphocytes % Monocytes % Eosinophils % Basophils % Neutrophils # Lymphocytes # Monocytes # Eosinophils # Basophils # Platelet Estimate PT INR APTT Heparin Anti-Xa, Unfract 0.40 Sample Site ABG pH ABG pCO2 ABG pO2 ABG HCO3 ABG Total CO2 ABG O2 Saturation ABG Base Excess Reilly Test Respiration Rate O2 Delivery Device Blood Gas Modality Inspired O2 Tidal Volume PEEP Sodium Potassium Chloride Carbon Dioxide BUN Creatinine Est GFR ( Amer) Est GFR (Non-Af Amer) BUN/Creatinine Ratio Glucose POC Glucose 133 H 108 H Calculated Osmolality Lactic Acid Uric Acid Calcium Magnesium Iron % Saturation Transferrin Ferritin Total Bilirubin AST ALT Alkaline Phosphatase Creatine Kinase Troponin I B-Natriuretic Peptide Serum Total Protein Albumin Globulin Albumin/Globulin Ratio Triglycerides Cholesterol LDL Cholesterol, Calc VLDL Cholesterol, Calc HDL Cholesterol Cholesterol/HDL Ratio Urine Color Urine Clarity Urine pH Ur Specific [place] Urine Protein Urine Glucose (UA) Urine Ketones Urine Blood Urine Nitrite Urine Bilirubin Urine Urobilinogen Ur Leukocyte Esterase Urine Microscopic RBC Urine Microscopic WBC Ur Squamous Epith Cells Urine Bacteria Hyaline Casts Urine Yeast Ur Culture Indicated? Urine Osmolality Urine Creatinine Urine Sodium Urine Urea Nitrogen Stool Occult Blood 3 06/07/18 06/07/18 06/07/18 04:57 04:57 04:57 WBC RBC Hgb Hct MCV MCH MCHC RDW Plt Count MPV Immature Gran % Seg Neutrophils % Lymphocytes % Monocytes % Eosinophils % Basophils % Neutrophils # Lymphocytes # Monocytes # Eosinophils # Basophils # Platelet Estimate PT INR APTT Heparin Anti-Xa, Unfract Sample Site ABG pH ABG pCO2 ABG pO2 ABG HCO3 ABG Total CO2 ABG O2 Saturation ABG Base Excess Reilly Test Respiration Rate O2 Delivery Device Blood Gas Modality Inspired O2 Tidal Volume PEEP Sodium Potassium Chloride Carbon Dioxide BUN Creatinine Est GFR ( Amer) Est GFR (Non-Af Amer) BUN/Creatinine Ratio Glucose POC Glucose Calculated Osmolality Lactic Acid Uric Acid Calcium Magnesium Iron % Saturation Transferrin Ferritin Total Bilirubin AST ALT Alkaline Phosphatase Creatine Kinase Troponin I B-Natriuretic Peptide Serum Total Protein Albumin Globulin Albumin/Globulin Ratio Triglycerides Cholesterol LDL Cholesterol, Calc VLDL Cholesterol, Calc HDL Cholesterol Cholesterol/HDL Ratio Urine Color Yellow Urine Clarity Cloudy A Urine pH 6.0 Ur Specific [place] 1.007 L Urine Protein 100 H Urine Glucose (UA) Normal Urine Ketones Negative Urine Blood Small H Urine Nitrite Negative Urine Bilirubin Negative Urine Urobilinogen Normal Ur Leukocyte Esterase Negative Urine Microscopic RBC 0-3 Urine Microscopic WBC 5-15 H Ur Squamous Epith Cells Many H Urine Bacteria None Seen Hyaline Casts None Seen Urine Yeast Few H Ur Culture Indicated? NO Urine Osmolality 450 Urine Creatinine Urine Sodium 33.4 Urine Urea Nitrogen Stool Occult Blood 3 06/07/18 06/07/18 06/07/18 04:57 01:20 01:20 WBC RBC Hgb Hct MCV MCH MCHC RDW Plt Count MPV Immature Gran % Seg Neutrophils % Lymphocytes % Monocytes % Eosinophils % Basophils % Neutrophils # Lymphocytes # Monocytes # Eosinophils # Basophils # Platelet Estimate PT INR APTT Heparin Anti-Xa, Unfract 0.47 Sample Site ABG pH ABG pCO2 ABG pO2 ABG HCO3 ABG Total CO2 ABG O2 Saturation ABG Base Excess Reilly Test Respiration Rate O2 Delivery Device Blood Gas Modality Inspired O2 Tidal Volume PEEP Sodium 135 L Potassium 4.1 Chloride 100 Carbon Dioxide 30 H BUN 33 H Creatinine 1.74 H Est GFR ( Amer) 45 L Est GFR (Non-Af Amer) 37 L BUN/Creatinine Ratio 19 Glucose 107 H POC Glucose Calculated Osmolality 288 Lactic Acid Uric Acid Calcium 8.7 Magnesium Iron % Saturation Transferrin Ferritin Total Bilirubin AST ALT Alkaline Phosphatase Creatine Kinase Troponin I B-Natriuretic Peptide Serum Total Protein Albumin Globulin Albumin/Globulin Ratio Triglycerides Cholesterol LDL Cholesterol, Calc VLDL Cholesterol, Calc HDL Cholesterol Cholesterol/HDL Ratio Urine Color Urine Clarity Urine pH Ur Specific [place] Urine Protein Urine Glucose (UA) Urine Ketones Urine Blood Urine Nitrite Urine Bilirubin Urine Urobilinogen Ur Leukocyte Esterase Urine Microscopic RBC Urine Microscopic WBC Ur Squamous Epith Cells Urine Bacteria Hyaline Casts Urine Yeast Ur Culture Indicated? Urine Osmolality Urine Creatinine 99 Urine Sodium Urine Urea Nitrogen 800 Stool Occult Blood 3 06/07/18 06/06/18 06/06/18 01:20 20:25 16:47 WBC 5.7 RBC 3.46 L Hgb 10.4 L Hct 32.0 L MCV 92.5 MCH 30.1 MCHC 32.5 RDW 14.6 H Plt Count 138 L MPV 10.4 Immature Gran % 0.3 Seg Neutrophils % 68.9 Lymphocytes % 12.2 Monocytes % 16.0 Eosinophils % 2.3 Basophils % 0.3 Neutrophils # 4.0 Lymphocytes # 0.7 Monocytes # 0.9 Eosinophils # 0.1 Basophils # 0.0 Platelet Estimate PT INR APTT Heparin Anti-Xa, Unfract 0.28 L Sample Site ABG pH ABG pCO2 ABG pO2 ABG HCO3 ABG Total CO2 ABG O2 Saturation ABG Base Excess Reilly Test Respiration Rate O2 Delivery Device Blood Gas Modality Inspired O2 Tidal Volume PEEP Sodium Potassium Chloride Carbon Dioxide BUN Creatinine Est GFR ( Amer) Est GFR (Non-Af Amer) BUN/Creatinine Ratio Glucose POC Glucose 112 H Calculated Osmolality Lactic Acid Uric Acid Calcium Magnesium Iron % Saturation Transferrin Ferritin Total Bilirubin AST ALT Alkaline Phosphatase Creatine Kinase Troponin I B-Natriuretic Peptide Serum Total Protein Albumin Globulin Albumin/Globulin Ratio Triglycerides Cholesterol LDL Cholesterol, Calc VLDL Cholesterol, Calc HDL Cholesterol Cholesterol/HDL Ratio Urine Color Urine Clarity Urine pH Ur Specific [place] Urine Protein Urine Glucose (UA) Urine Ketones Urine Blood Urine Nitrite Urine Bilirubin Urine Urobilinogen Ur Leukocyte Esterase Urine Microscopic RBC Urine Microscopic WBC Ur Squamous Epith Cells Urine Bacteria Hyaline Casts Urine Yeast Ur Culture Indicated? Urine Osmolality Urine Creatinine Urine Sodium Urine Urea Nitrogen Stool Occult Blood 3 06/06/18 06/06/18 06/06/18 11:38 03:27 03:27 WBC 7.2 RBC 3.49 L Hgb 10.3 L Hct 31.8 L MCV 91.1 MCH 29.5 MCHC 32.4 RDW 14.6 H Plt Count 135 L MPV 11.7 Immature Gran % 0.4 Seg Neutrophils % 74.4 Lymphocytes % 9.9 Monocytes % 14.9 Eosinophils % 0.3 Basophils % 0.1 Neutrophils # 5.4 Lymphocytes # 0.7 Monocytes # 1.1 Eosinophils # 0.0 Basophils # 0.0 Platelet Estimate PT INR APTT Heparin Anti-Xa, Unfract Sample Site ABG pH ABG pCO2 ABG pO2 ABG HCO3 ABG Total CO2 ABG O2 Saturation ABG Base Excess Reilly Test Respiration Rate O2 Delivery Device Blood Gas Modality Inspired O2 Tidal Volume PEEP Sodium 134 L Potassium 3.9 Chloride 98 Carbon Dioxide 26 BUN 35 H Creatinine 1.94 H Est GFR ( Amer) 40 L Est GFR (Non-Af Amer) 33 L BUN/Creatinine Ratio 18 Glucose 99 POC Glucose 117 H Calculated Osmolality 286 Lactic Acid Uric Acid 6.7 Calcium 8.8 Magnesium Iron % Saturation Transferrin Ferritin Total Bilirubin AST ALT Alkaline Phosphatase Creatine Kinase Troponin I B-Natriuretic Peptide Serum Total Protein Albumin Globulin Albumin/Globulin Ratio Triglycerides Cholesterol LDL Cholesterol, Calc VLDL Cholesterol, Calc HDL Cholesterol Cholesterol/HDL Ratio Urine Color Urine Clarity Urine pH Ur Specific [place] Urine Protein Urine Glucose (UA) Urine Ketones Urine Blood Urine Nitrite Urine Bilirubin Urine Urobilinogen Ur Leukocyte Esterase Urine Microscopic RBC Urine Microscopic WBC Ur Squamous Epith Cells Urine Bacteria Hyaline Casts Urine Yeast Ur Culture Indicated? Urine Osmolality Urine Creatinine Urine Sodium Urine Urea Nitrogen Stool Occult Blood 3 06/05/18 06/05/18 06/05/18 17:11 15:50 11:05 WBC RBC Hgb Hct MCV MCH MCHC RDW Plt Count MPV Immature Gran % Seg Neutrophils % Lymphocytes % Monocytes % Eosinophils % Basophils % Neutrophils # Lymphocytes # Monocytes # Eosinophils # Basophils # Platelet Estimate PT INR APTT Heparin Anti-Xa, Unfract 0.38 0.41 Sample Site ABG pH ABG pCO2 ABG pO2 ABG HCO3 ABG Total CO2 ABG O2 Saturation ABG Base Excess Reilly Test Respiration Rate O2 Delivery Device Blood Gas Modality Inspired O2 Tidal Volume PEEP Sodium Potassium Chloride Carbon Dioxide BUN Creatinine Est GFR ( Amer) Est GFR (Non-Af Amer) BUN/Creatinine Ratio Glucose POC Glucose Calculated Osmolality Lactic Acid Uric Acid Calcium Magnesium Iron % Saturation Transferrin Ferritin Total Bilirubin AST ALT Alkaline Phosphatase Creatine Kinase Troponin I 8.45 H* B-Natriuretic Peptide Serum Total Protein Albumin Globulin Albumin/Globulin Ratio Triglycerides Cholesterol LDL Cholesterol, Calc VLDL Cholesterol, Calc HDL Cholesterol Cholesterol/HDL Ratio Urine Color Urine Clarity Urine pH Ur Specific [place] Urine Protein Urine Glucose (UA) Urine Ketones Urine Blood Urine Nitrite Urine Bilirubin Urine Urobilinogen Ur Leukocyte Esterase Urine Microscopic RBC Urine Microscopic WBC Ur Squamous Epith Cells Urine Bacteria Hyaline Casts Urine Yeast Ur Culture Indicated? Urine Osmolality Urine Creatinine Urine Sodium Urine Urea Nitrogen Stool Occult Blood 3 06/05/18 06/05/18 06/05/18 09:25 09:25 04:26 WBC RBC Hgb Hct MCV MCH MCHC RDW Plt Count MPV Immature Gran % Seg Neutrophils % Lymphocytes % Monocytes % Eosinophils % Basophils % Neutrophils # Lymphocytes # Monocytes # Eosinophils # Basophils # Platelet Estimate PT 14.0 H INR 1.2 APTT 45.6 H Heparin Anti-Xa, Unfract Sample Site ABG pH ABG pCO2 ABG pO2 ABG HCO3 ABG Total CO2 ABG O2 Saturation ABG Base Excess Reilly Test Respiration Rate O2 Delivery Device Blood Gas Modality Inspired O2 Tidal Volume PEEP Sodium Potassium Chloride Carbon Dioxide BUN Creatinine Est GFR ( Amer) Est GFR (Non-Af Amer) BUN/Creatinine Ratio Glucose POC Glucose Calculated Osmolality Lactic Acid Uric Acid Calcium Magnesium Iron % Saturation Transferrin Ferritin Total Bilirubin AST ALT Alkaline Phosphatase Creatine Kinase Troponin I 12.36 H* B-Natriuretic Peptide 769 H Serum Total Protein Albumin Globulin Albumin/Globulin Ratio Triglycerides Cholesterol LDL Cholesterol, Calc VLDL Cholesterol, Calc HDL Cholesterol Cholesterol/HDL Ratio Urine Color Urine Clarity Urine pH Ur Specific [place] Urine Protein Urine Glucose (UA) Urine Ketones Urine Blood Urine Nitrite Urine Bilirubin Urine Urobilinogen Ur Leukocyte Esterase Urine Microscopic RBC Urine Microscopic WBC Ur Squamous Epith Cells Urine Bacteria Hyaline Casts Urine Yeast Ur Culture Indicated? Urine Osmolality Urine Creatinine Urine Sodium Urine Urea Nitrogen Stool Occult Blood 3 06/05/18 06/05/18 06/05/18 04:26 03:55 03:55 WBC 9.2 RBC 3.88 L Hgb 11.5 L Hct 35.4 L MCV 91.2 MCH 29.6 MCHC 32.5 RDW 14.1 Plt Count 143 MPV 10.8 Immature Gran % 0.5 Seg Neutrophils % 82.0 Lymphocytes % 6.5 Monocytes % 10.9 Eosinophils % 0.0 Basophils % 0.1 Neutrophils # 7.5 Lymphocytes # 0.6 Monocytes # 1.0 Eosinophils # 0.0 Basophils # 0.0 Platelet Estimate PT INR APTT Heparin Anti-Xa, Unfract 0.25 L Sample Site ABG pH ABG pCO2 ABG pO2 ABG HCO3 ABG Total CO2 ABG O2 Saturation ABG Base Excess Reilly Test Respiration Rate O2 Delivery Device Blood Gas Modality Inspired O2 Tidal Volume PEEP Sodium 133 L Potassium 4.0 Chloride 98 Carbon Dioxide 25 BUN 29 H Creatinine 1.76 H Est GFR ( Amer) 45 L Est GFR (Non-Af Amer) 37 L BUN/Creatinine Ratio 16 Glucose 120 H POC Glucose Calculated Osmolality 283 Lactic Acid Uric Acid Calcium 8.9 Magnesium 2.1 Iron % Saturation Transferrin Ferritin Total Bilirubin 0.7 AST 76 H ALT 31 Alkaline Phosphatase 71 Creatine Kinase Troponin I B-Natriuretic Peptide Serum Total Protein 6.7 Albumin 3.4 L Globulin 3.3 Albumin/Globulin Ratio 1.0 L Triglycerides 76 Cholesterol 134 LDL Cholesterol, Calc 80 VLDL Cholesterol, Calc 15 HDL Cholesterol 39 L Cholesterol/HDL Ratio 3.4 Urine Color Urine Clarity Urine pH Ur Specific [place] Urine Protein Urine Glucose (UA) Urine Ketones Urine Blood Urine Nitrite Urine Bilirubin Urine Urobilinogen Ur Leukocyte Esterase Urine Microscopic RBC Urine Microscopic WBC Ur Squamous Epith Cells Urine Bacteria Hyaline Casts Urine Yeast Ur Culture Indicated? Urine Osmolality Urine Creatinine Urine Sodium Urine Urea Nitrogen Stool Occult Blood 3 06/05/18 03:55 WBC RBC Hgb Hct MCV MCH MCHC RDW Plt Count MPV Immature Gran % Seg Neutrophils % Lymphocytes % Monocytes % Eosinophils % Basophils % Neutrophils # Lymphocytes # Monocytes # Eosinophils # Basophils # Platelet Estimate PT INR APTT Heparin Anti-Xa, Unfract Sample Site ABG pH ABG pCO2 ABG pO2 ABG HCO3 ABG Total CO2 ABG O2 Saturation ABG Base Excess Reilly Test Respiration Rate O2 Delivery Device Blood Gas Modality Inspired O2 Tidal Volume PEEP Sodium Potassium Chloride Carbon Dioxide BUN Creatinine Est GFR ( Amer) Est GFR (Non-Af Amer) BUN/Creatinine Ratio Glucose POC Glucose Calculated Osmolality Lactic Acid Uric Acid Calcium Magnesium Iron % Saturation Transferrin Ferritin Total Bilirubin AST ALT Alkaline Phosphatase Creatine Kinase Troponin I 14.41 H* B-Natriuretic Peptide Serum Total Protein Albumin Globulin Albumin/Globulin Ratio Triglycerides Cholesterol LDL Cholesterol, Calc VLDL Cholesterol, Calc HDL Cholesterol Cholesterol/HDL Ratio Urine Color Urine Clarity Urine pH Ur Specific [place] Urine Protein Urine Glucose (UA) Urine Ketones Urine Blood Urine Nitrite Urine Bilirubin Urine Urobilinogen Ur Leukocyte Esterase Urine Microscopic RBC Urine Microscopic WBC Ur Squamous Epith Cells Urine Bacteria Hyaline Casts Urine Yeast Ur Culture Indicated? Urine Osmolality Urine Creatinine Urine Sodium Urine Urea Nitrogen Stool Occult Blood as in HPI Consult Discharge Plan - Plan [facility]errals[facility]Primary Care Provider[facility] - Inpatient Charges Provider: Dr. Candace Gee Consult - Inpatient: [id number]
--- NOTE | 2018-06-08 10:14 | Nephrology Progress Note ---
Date of Encounter: 06/07/18 Time of Encounter: 12:00 - Assessment and Plan (1) IVAN (acute kidney injury) Current Visit: Yes Status: Acute SCr slightly improved at 1.74,GFR 37, baseline still unknown Continue IVF for volume resuscitation and encouraged po fluids as well Continue to hold all nephrotoxins if possible Pros/cons of iv contrast during LHC discussed including worsening renal fxn Will use mucomyst for prophylasix once LHC date set (2) Elevated troponin Current Visit: Yes Status: Acute Per cardio (3) Pneumonia Current Visit: Yes Status: Acute Abx per primary team Qualifiers: Pneumonia type: due to unspecified organism Laterality: right Lung location: upper lobe of lung Qualified Code(s): J18.1 - Lobar pneumonia, unspecified organism Subjective Principal diagnosis: Elevated troponin Interval history: Pt seen and examined feeling slightly better with no complaints. Objective - Vital Signs Vital signs: Vital Signs Temp Pulse Resp BP Pulse Ox 06/08/18 09:15 87 18 101/62 96 06/08/18 08:00 98.5 F 75 18 95/60 93 06/08/18 07:31 18 101/62 93 06/08/18 07:00 73 18 93/62 93 06/08/18 06:00 78 18 94/64 97 06/08/18 05:34 18 77/54 92 06/08/18 05:00 90 14 86/53 91 06/08/18 04:00 99.3 F 82 17 86/63 93 06/08/18 03:52 114 12 110/61 89 06/08/18 03:06 18 105/75 94 06/08/18 01:25 98.3 F 131 48 139/95 92 06/07/18 23:26 17 91 06/07/18 20:14 18 92 06/07/18 20:13 99.4 F 99 20 117/74 97 06/07/18 14:38 99.0 F 99 30 108/70 94 06/07/18 11:45 18 109/65 92 06/07/18 10:31 99.5 F 96 19 109/65 91 Intake and Output 06/07/18 06/08/18 06/08/18 23:59 07:59 15:59 Intake Total 250 / 250 1680.5 / 1680.5 67 / 67 Output Total 300 / 300 50 / 50 500 / 500 Balance -50 / -50 1630.5 / 1630.5 -433 / -433 Intake: IV Fluids 250 / 250 1680.5 / 1680.5 67 / 67 0.9 % Sodium Chloride 1,000 ML 1200 / 1200 @ 100 mls/hr IVC .Q10H [facility] Rx#: [id number] PRECEDEX Premix 400 mcg In 100 5.5 / 5.5 ml @ 0.5 MCG/KG/HR 14.325 mls/ hr IVC .Q6H59M [facility] Rx#: [id number] Heparin 25,000 UNIT/500 ML D5W 475 / 475 25,000 unit In 500 ml @ 9.2 UNIT/KG/HR 20.031 mls/hr IVC . Q24H [facility] Rx#:[id number] Diprivan 1,000 mg In 100 ml @ 5 57 / 57 MCG/KG/MIN 3.438 mls/hr IVC . Q24H [facility] Rx#:[id number] Rocephin 1,000 MG In Water for inj. (sterile) 10 ML @ 600 mls/ hr IVP DAILY [facility] Rx#:[id number] Zithromax 500 mg In Dextrose 5% 250 / 250 250 ML @ 252 mls/hr IVPB Q24H [facility] Rx#:[id number] Oral 0 / 0 0 / 0 0 / 0 Output: Urine 300 / 300 50 / 50 Catheter 500 / 500 Other: Stool Size Copious Stool Consistency soft formed Stool Color Brown # Bowel Movements 1 Weight 113.6 kg Blood Glucose* 130 154 Patient Weight 06/08/18 23:59 Weight 113.6 kg - General Appearance General appearance: Present: chronically ill (NAD) EENT: Present: ATNC, mucous membranes moist Neck: Present: no JVD, supple Additional Comments: good areation ant bilat Cardiology: Present: edema, normal S1, normal S2 Gastrointestinal: Present: no tenderness, no guarding Integumentary: Present: warm and dry Neurologic: Present: no focal deficit Musculoskeletal: Present: no deformities Psychiatric: Present: mood/affect appropriate, cooperative - Lab 06/08/18 03:36 06/08/18 03:36 Most recent lab results ABG pH 7.36 pH Units (7.32-7.45) D 06/08/18 05:29 ABG pCO2 53 mmHg (35-45) H D 06/08/18 05:29 ABG pO2 76 mmHg (85-104) L 06/08/18 05:29 ABG HCO3 30 mEq/L (21-27) H 06/08/18 05:29 ABG O2 Saturation 94 % (95-98) L 06/08/18 05:29 Calcium 8.8 mg/dL (8.6-10.3) 06/08/18 03:36 Magnesium 2.1 mg/dL (1.6-2.6) 06/05/18 03:55 Urine Creatinine 99 mg/dL 06/07/18 04:57 Urine Sodium 33.4 mEq/L 06/07/18 04:57 Consult Discharge Plan - Plan [facility]errals: [facility] [Primary Care Provider] -
--- NOTE | 2018-06-08 10:25 | Nephrology Progress Note ---
Date of Encounter: 06/08/18 Time of Encounter: 10:00 - Assessment and Plan (1) Acute respiratory failure Current Visit: Yes Status: Acute Vent settings per critical care team Qualifiers: Respiratory failure complication: hypoxia Qualified Code(s): J96.01 - Acute respiratory failure with hypoxia (2) IVAN (acute kidney injury) Current Visit: Yes Status: Acute SCr slightly better again at 1.68, GFR 39 despite resp. issues. Baseline not known Ok to hold IVF and use intermittent lasix iv Continue to hold all nephrotoxins if possible Pros/cons of iv contrast during LHC discussed including worsening renal fxn Will start mucomyst for prophylasix if LHC planned tomorrow UOP noted at 935cc in the past 24hrs (3) Elevated troponin Current Visit: Yes Status: Acute Per cardio, LHC planned tentatively tomorrow (4) Pneumonia Current Visit: Yes Status: Acute Abx per primary team Qualifiers: Pneumonia type: due to unspecified organism Laterality: right Lung location: upper lobe of lung Qualified Code(s): J18.1 - Lobar pneumonia, unspecified organism Subjective Principal diagnosis: Elevated troponin Interval history: Interim events noted s/p respiratory failure requiring intubation and tranasfer to the ICU. Pt seen and examined Objective - Vital Signs Vital signs: Vital Signs Temp Pulse Resp BP Pulse Ox 06/08/18 09:15 87 18 101/62 96 06/08/18 08:00 98.5 F 75 18 95/60 93 06/08/18 07:31 18 101/62 93 06/08/18 07:00 73 18 93/62 93 06/08/18 06:00 78 18 94/64 97 06/08/18 05:34 18 77/54 92 06/08/18 05:00 90 14 86/53 91 06/08/18 04:00 99.3 F 82 17 86/63 93 06/08/18 03:52 114 12 110/61 89 06/08/18 03:06 18 105/75 94 06/08/18 01:25 98.3 F 131 48 139/95 92 06/07/18 23:26 17 91 06/07/18 20:14 18 92 06/07/18 20:13 99.4 F 99 20 117/74 97 06/07/18 14:38 99.0 F 99 30 108/70 94 06/07/18 11:45 18 10965 92 06/07/18 10:31 99.5 F 96 19 10965 91 Intake and Output 06/07/18 06/08/18 06/08/18 23:59 07:59 15:59 Intake Total 250 / 250 1680.5 / 1680.5 Output Total 300 / 300 50 / 50 500 / 500 Balance -50 / -50 1630.5 / 1630.5 -433 / -433 Intake: IV Fluids 250 / 250 1680.5 / 1680.5 0.9 % Sodium Chloride 1,000 ML 1200 / 1200 @ 100 mls/hr IVC .Q10H [facility] Rx#: [id number] PRECEDEX Premix 400 mcg In 100 5.5 / 5.5 ml @ 0.5 MCG/KG/HR 14.325 mls/ hr IVC .Q6H59M [facility] Rx#: [id number] Heparin 25,000 UNIT/500 ML D5W 475 / 475 25,000 unit In 500 ml @ 9.2 UNIT/KG/HR 20.031 mls/hr IVC . Q24H [facility] Rx#:[id number] Diprivan 1,000 mg In 100 ml @ 5 57 / 57 MCG/KG/MIN 3.438 mls/hr IVC . Q24H [facility] Rx#:[id number] Rocephin 1,000 MG In Water for inj. (sterile) 10 ML @ 600 mls/ hr IVP DAILY [facility] Rx#:[id number] Zithromax 500 mg In Dextrose 5% 250 / 250 250 ML @ 252 mls/hr IVPB Q24H [facility] Rx#:[id number] Oral 0 / 0 0 / 0 0 / 0 Output: Urine 300 / 300 50 / 50 Catheter 500 / 500 Other: Meal NPO Stool Size Copious Stool Consistency soft formed Stool Color Brown # Bowel Movements 1 Weight 113.6 kg Blood Glucose* 130 154 Patient Weight 06/08/18 23:59 Weight 113.6 kg - Lab 06/08/18 03:36 06/08/18 03:36 Most recent lab results ABG pH 7.36 pH Units (7.32-7.45) D 06/08/18 05:29 ABG pCO2 53 mmHg (35-45) H D 06/08/18 05:29 ABG pO2 76 mmHg (85-104) L 06/08/18 05:29 ABG HCO3 30 mEq/L (21-27) H 06/08/18 05:29 ABG O2 Saturation 94 % (95-98) L 06/08/18 05:29 Calcium 8.8 mg/dL (8.6-10.3) 06/08/18 03:36 Magnesium 2.1 mg/dL (1.6-2.6) 06/05/18 03:55 Urine Creatinine 99 mg/dL 06/07/18 04:57 Urine Sodium 33.4 mEq/L 06/07/18 04:57 Consult Discharge Plan - Plan [facility]errals: [facility] [Primary Care Provider] -
--- NOTE | 2018-06-08 12:51 | Cardiology Progress Note ---
Date of Encounter: 06/08/18 Time of Encounter: 11:20 Assessment and Plan (1) NSTEMI (non-ST elevated myocardial infarction) Current Visit: Yes Status: Acute Troponin reportedly >40 at the [facility], 17.24, 14.21, 12.36,8.45, 6.35. Presented to the [facility] with weakness, AMS, shortness of breath per records. Also with PNA and IVAN upon admission. CK elevated, ? Rhabdo component. TTE this stay: LVEF 55%, mild segmental LV systolic dysfunction, apical septal wall hypokinesis Significant risk factors for CAD; ideally recommend LHC when able (IVAN/PNA resolves); patient was agreeable for LHC and plan for saturday. Unfortunately due to respiratory distress patient was intubated overnight. He was given IV Lasix with no improvement in his symptoms. He is currently on positive pressure ventilation. He is on norepinephrine drip for low blood pressure. Beta leroy is on hold. Continue heparin gtt, and asa. Allergy to statins. Discussed with Dr. Dougherty, he will consider completing cardiac catheterization on him tomorrow while intubated pending kidney function. (2) Acute respiratory failure Current Visit: Yes Status: Acute Status post respiratory distress. 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 He did receive IV Lasix initially. Qualifiers: Respiratory failure complication: hypoxia Qualified Code(s): J96.01 - Acute respiratory failure with hypoxia (3) IVAN (acute kidney injury) Current Visit: Yes Status: Acute SCr 1.94 at [facility]. baseline unknown. Serum creatinine now 1.68. Continue to avoid nephrotoxins. Mgmt per Primary service, Nephrology has been consulted; appreciate recommendations. Discussion w patient/family: The assessment and plan as outlined above was discussed with the patient and/or family members who expressed understanding and agreement. All questions were answered. Thank you for involving us in the care of your patient. Please call with any questions. Subjective Principal diagnosis: Elevated troponin Interval history: Mr. Jane was intubated overnight due to respiratory distress. He is currently intubated and sedated. No family at bedside. Objective Vital Signs, Last 4 Hours Temp Pulse Resp BP Pulse Ox 06/08/18 12:00 98.4 F 70 18 105/63 94 06/08/18 11:00 71 18 103/71 95 10/07/18 10:15 75 18 93/60 95 06/08/18 09:15 87 18 101/62 96 General: No Apparent Distress, Other (Sedated) HEENT: Atraumatic, Normocephaly, Mucus Membranes Moist, Other (Intubated) Neck: No JVD, Normal carotid pulses Cardiac: Reg Rate and Rhythm, Normal S1 and S2, No Murmur Lungs: Normal Breath Sounds, No Wheeze, Rales, Rhonchi, Other (Mechanical ventilation) Neuro: Other (Unable to assess secondary to sedation) Abdomen: Soft Skin: No rashes noted on visualized skin Extremities: No Edema, Normal Pulses Results 06/08/18 03:36 06/08/18 03:36 Lab Results 06/08/18 06/08/18 06/08/18 03:36 03:36 03:36 WBC 5.0 Hgb 9.5 L Hct 29.6 L Plt Count 165 Sodium 134 L Potassium 4.2 Chloride 102 Carbon Dioxide 23 BUN 31 H Creatinine 1.68 H Glucose 145 H Calcium 8.8 Troponin I B-Natriuretic Peptide 917 H 06/08/18 08:12 WBC Hgb Hct Plt Count Sodium Potassium Chloride Carbon Dioxide BUN Creatinine Glucose Calcium Troponin I 6.35 H* B-Natriuretic Peptide - Imaging and Cardiology Echo: report reviewed - EKG Interpretation EKG results cardiology: personally reviewed Consult Discharge Plan - Plan [facility]errals: [facility] [Primary Care Provider] -
[2018-06-08] MEDS ORDERED: Haloperidol Lactate 5 MG/ML VIAL IVP PRN (13:08)
[2018-06-08 13:36] LABS: Folate 12.2 ng/mL (3.0-16.0)
[2018-06-08 14:23] LABS: VBG Ionized Calcium 1.14 mmol/L (1.15-1.35)
[2018-06-08] MEDS: Azithromycin 500 MG in D5% in Water 250 ML IVPB SCH (20:21)
[2018-06-08] MEDS: *HR* Acetylcysteine 20% 600 MG/3 ML ORAL SYRINGE PO SCH (23:12)
[2018-06-09] MEDS: FentaNYL (PF) 1,000 MCG in 0.9 % Sodium Chloride 80 ML IVC SCH ×3 (01:28→20:10)
[2018-06-09] MEDS: Ipratropium/Albuterol Neb 3 ML IH SCH ×6 (03:36→23:39)
[2018-06-09 04:04] LABS: Basophils % 0.1 %; Hematocrit 29.7 % (37.5-50.1); Hemoglobin 9.9 g/dL (12.9-16.9); Immature Granulocytes % 0.7 % (0-4); Lymphocytes # 0.3 K/mcL (0.6-4.6); Lymphocytes % 3.1 %; Mean Corpuscular HGB Conc 33.3 g/dL (31.6-35.5); Mean Corpuscular Hemoglobin 29.4 pg (28.0-33.3); Mean Corpuscular Volume 88.1 fL (83.0-100.0); Mean Platelet Volume 10.7 fL (9.4-12.4); Monocytes # 0.5 K/mcL (0.0-1.3); Monocytes % 4.6 %; Neutrophils # 9.3 K/mcL (1.6-8.9); Platelet Count 162 K/mcL (140-400); Red Blood Count 3.37 M/mcL (4.19-5.50); Red Cell Distribution Width 13.7 % (11.5-14.5); Segmented Neutrophils % 91.5 %
[2018-06-09 04:22] LABS: Magnesium 2.2 mg/dL (1.6-2.6); Potassium 3.2 mEq/L (3.5-5.1)
[2018-06-09 05:03] LABS: ABG Base Excess 3 mEq/L (-2 to 3); ABG HCO3 28 mEq/L (21-27); ABG Oxygen Saturation 91 % (95-98); ABG PCO2 44 mmHg (35-45); ABG PH 7.42 pH Units (7.32-7.45); ABG PO2 60 mmHg (85-104); ABG TCO2 29 mEq/L (20-26); Blood Gas Modality ASSIST CONTROL; Blood Gas PEEP 8 cm H2O; Blood Gas Respiration Rate 18; Blood Gas VT 500 cc
[2018-06-09] MEDS: Artificial Tears SOLN 15 ML BOTTLE BOTH EYES SCH ×6 (05:20→23:25)
[2018-06-09] MEDS: Norepinephrine 4 MG in D5% in Water 250 ML IVC SCH (05:20)
[2018-06-09] MEDS: Pantoprazole 40 MG VIAL IVP SCH (05:26)
[2018-06-09] MEDS: Dexmedetomidine HCl 400 MCG/100 ML MLS IVC SCH ×4 (05:26→21:00)
[2018-06-09] MEDS: Insulin LISPRO 300 UNITS/3 ML VIAL SQ SCH ×4 (05:27→23:25)
[2018-06-09] MEDS ORDERED: Potassium Chloride Elixir 20 MEQ/15 ML UDC GTUBE ONE ×2 (05:51→15:52)
--- NOTE | 2018-06-09 07:12 | Pulmonology Progress Note ---
Date of Encounter: 06/09/18 Time of Encounter: 07:12 Assessment and Plan (1) Acute respiratory failure Current Visit: Yes Status: Acute I spent 32min of Critical Care time with this patient. It involved decision making of high complexity to assess, manipulate, and support vital organ system failure and/or to prevent further life threatening deterioration of the patient' s condition. The time involved in the performance of separately reportable procedures was not counted toward critical care time. Patient seen and examined at bedside Labs, radiology, chart personally reviewed. Management was reviewed during multidisciplinary critical care rounds. 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 Acceptable gas exchange today we will decrease respiratory rate. He is not a candidate for spontaneous breathing trial because of planned left heart catheterization with active myocardial ischemia. Continue ventilator bundle to prevent VAP. I reviewed his chest x-ray today which is notable for worsening evidence of interstitial edema/CHF Cards:NSTEMI. Cardiology following. He is on ACS protocol including heparin and aspirin; holding beta leroy because of hypotension continue to monitor on telemetry patient will likely need left heart catheterization the timing of this is at the discretion of the vehicle return associate; course is further complicated by diastolic heart failure with volume overload. Patient has been borderline hypotensive that mean arterial pressure has been greater than 60 on vasopressor O continue to monitor closely may need to restart vasopressor GI: Continue GI prophylaxis with the Protonix. Stool occult blood is positive. Nutrition:Enteral nutrition will be provided while on vent per dietary recommendations Renal: Acute kidney injury which is stable to slightly worse. Nephrology following. He has received Mucomyst for planned left heart catheterization UOP Monitored, Cont to Trend sCr and monitor Electrolytes. Renal dose all medications through ICU Pharmacist ID: The patient is on the antibiotics for pneumonia currently for community organisms. White count has doubled overnight but no evidence of fever may need to broaden antimicrobials based upon clinical course Heme/Onc: He is on heparin infusion for ACS has chronic anemia but stable hemoglobin and platelets has been evaluated by hematology during this admission Endo: Glucose Monitored and acceptable continue levothyroxine for chronic hypothyroidism Integ/MSK: Skin Care per routine ICU Nursing Protocol to prevent ulcers. Lines: All lines examined without evidence of infection : Dispo: Remain in ICU for critical illness CODE: DNAR. I updated the patient's [id number] at bedside today Qualifiers: Respiratory failure complication: hypoxia and hypercapnia Qualified Code(s) : J96.01 - Acute respiratory failure with hypoxia; J96.02 - Acute respiratory failure with hypercapnia (2) NSTEMI (non-ST elevated myocardial infarction) Current Visit: Yes Status: Acute (3) Acute on chronic diastolic (congestive) heart failure Current Visit: Yes Status: Acute (4) IVAN (acute kidney injury) Current Visit: Yes Status: Acute (5) Pneumonia Current Visit: Yes Status: Acute Qualifiers: Pneumonia type: due to unspecified organism Laterality: right Lung location: upper lobe of lung Qualified Code(s): J18.1 - Lobar pneumonia, unspecified organism Subjective Principal diagnosis: Elevated troponin Interval history: Patient has been hemodynamically stable off vasopressor. He remains on the vent. Urine output has been low overnight with slight worsening of his kidney function. Objective PUL Vital signs: Last Vital Signs Temp 95.7 F L 06/08/18 23:45 Pulse 68 06/09/18 06:00 Resp 18 06/09/18 06:00 BP 98/60 06/09/18 06:00 Pulse Ox 97 06/09/18 06:00 General appearance: no acute distress Eyes: nonicteric ENT: other (Endotracheal tube noted in satisfactory position) Neck: supple, JVD Auscultation: bilateral: diminished breath sounds, wheezes (Faint expiratory wheezes), rales (Bilaterally in lung bases) Cardiovascular: regular rate and rhythm, other (No audible murmur, S3 nor S4) Gastrointestinal: normoactive bowel sounds, soft, non-tender Integumentary: other (No evidence of worsening ecchymotic changes or rash) Extremities: edema (Bilateral lower extremity pitting edema), other (Pulses palpable in the distal extremities) Musculoskeletal: no deformities pupils equal and round, other (Patient is sedated on the vent he is able to open his eyes and move all extremities to command no gross focal deficits appreciated) mood appropriate Ventilator Settings Ventilator Settings: Ventilator Settings, Last 8 Hours Ventilator Tidal Volume 500 Setting Ventilator Tidal Volume 500 Setting Ventilator Tidal Volume 500 Setting Ventilator Tidal Volume 500 Setting Ventilator Tidal Volume 500 Setting Ventilator Tidal Volume 500 Setting Ventilator Tidal Volume 500 Setting Ventilator Tidal Volume 500 Setting Ventilator Tidal Volume 500 Setting Ventilator Tidal Volume 500 Setting Ventilator Tidal Volume 500 Setting Ventilator Tidal Volume 500 Setting Ventilator Respiratory Rate 18 Setting Ventilator Respiratory Rate 18 Setting Ventilator Respiratory Rate 18 Setting Ventilator Respiratory Rate 18 Setting Ventilator Respiratory Rate 18 Setting Ventilator Respiratory Rate 18 Setting Ventilator Respiratory Rate 18 Setting Ventilator Respiratory Rate 18 Setting Ventilator Respiratory Rate 18 Setting Ventilator Respiratory Rate 18 Setting Ventilator Respiratory Rate 18 Setting Ventilator Respiratory Rate 18 Setting Actual Respiratory Rate 18 Actual Respiratory Rate 18 Actual Respiratory Rate 18 Actual Respiratory Rate 18 Actual Respiratory Rate 18 Actual Respiratory Rate 18 Actual Respiratory Rate 18 Actual Respiratory Rate 18 Actual Respiratory Rate 18 Actual Respiratory Rate 18 Actual Respiratory Rate 18 Positive End Expiratory 8 Pressure Positive End Expiratory 8 Pressure Positive End Expiratory 8 Pressure Positive End Expiratory 8 Pressure Positive End Expiratory 8 Pressure Positive End Expiratory 8 Pressure Positive End Expiratory 8 Pressure Positive End Expiratory 8 Pressure Positive End Expiratory 8 Pressure Positive End Expiratory 8 Pressure Positive End Expiratory 8 Pressure Positive End Expiratory 8 Pressure Peak Inspiratory Airway 22 Pressure Peak Inspiratory Airway 22 Pressure Peak Inspiratory Airway 23 Pressure Peak Inspiratory Airway 23 Pressure Peak Inspiratory Airway 22 Pressure Peak Inspiratory Airway 23 Pressure Peak Inspiratory Airway 23 Pressure Peak Inspiratory Airway 23 Pressure Peak Inspiratory Airway 22 Pressure Peak Inspiratory Airway 21 Pressure Peak Inspiratory Airway 21 Pressure Results - Laboratory Findings CBC and BMP: 06/09/18 03:45 06/09/18 03:45 ABG ABG pH 7.42 pH Units (7.32-7.45) 06/09/18 05:00 ABG pCO2 44 mmHg (35-45) 06/09/18 05:00 ABG pO2 60 mmHg (85-104) L 06/09/18 05:00 ABG O2 Saturation 91 % (95-98) L 06/09/18 05:00 PT/INR, D-dimer PT 14.0 Seconds (9.4-12.1) H 06/05/18 04:26 Abnormal lab findings: Abnormal lab results RBC 3.37 M/mcL (4.19-5.50) L 06/09/18 03:45 Hgb 9.9 g/dL (12.9-16.9) L 06/09/18 03:45 Hct 29.7 % (37.5-50.1) L 06/09/18 03:45 Neutrophils # 9.3 K/mcL (1.6-8.9) H 06/09/18 03:45 Lymphocytes # 0.3 K/mcL (0.6-4.6) L 06/09/18 03:45 PT 14.0 Seconds (9.4-12.1) H 06/05/18 04:26 APTT 45.6 Seconds (26.0-36.0) H 06/05/18 04:26 ABG pO2 60 mmHg (85-104) L 06/09/18 05:00 ABG HCO3 28 mEq/L (21-27) H 06/09/18 05:00 ABG Total CO2 29 mEq/L (20-26) H 06/09/18 05:00 ABG O2 Saturation 91 % (95-98) L 06/09/18 05:00 Potassium 3.2 mEq/L (3.5-5.1) L 06/09/18 03:45 BUN 40 mg/dL (8-23) H 06/09/18 03:45 Creatinine 1.81 mg/dL (0.70-1.30) H 06/09/18 03:45 Est GFR ( Amer) 43 (> 60) L 06/09/18 03:45 Est GFR (Non-Af Amer) 36 (> 60) L 06/09/18 03:45 Glucose 185 mg/dL (70-105) H 06/09/18 03:45 POC Glucose 223 mg/dL (70-99) H 06/08/18 23:11 Venous Ioniz Calcium 1.14 mmol/L (1.15-1.35) L 06/08/18 14:21 Iron 18 mcg/dL (65-175) L 06/08/18 03:36 % Saturation 9 % (20-55) L 06/08/18 03:36 Transferrin 145 mg/dL (203-362) L 06/08/18 03:36 Ferritin 573 ng/mL (20-250) H 06/08/18 03:36 AST 76 Units/L (13-39) H 06/05/18 03:55 Creatine Kinase 319 Units/L (30-223) H 06/08/18 03:36 Troponin I 6.35 ng/mL (< 0.04) H* 06/08/18 08:12 B-Natriuretic Peptide 917 pg/mL (Less than 100) H 06/08/18 03:36 Albumin 3.4 g/dL (3.5-5.7) L 06/05/18 03:55 Albumin/Globulin Ratio 1.0 (1.1-2.2) L 06/05/18 03:55 HDL Cholesterol 39 mg/dL (40-59) L 06/05/18 03:55 Urine Clarity Cloudy (Clear) A 06/07/18 04:57 Ur Specific [place] 1.007 (1.010-1.025) L 06/07/18 04:57 Urine Protein 100 mg/dL (Neg-Trace) H 06/07/18 04:57 Urine Blood Small (Negative) H 06/07/18 04:57 Urine Microscopic WBC 5-15 per hpf (0-3) H 06/07/18 04:57 Ur Squamous Epith Cells Many per lpf (None-Few) H 06/07/18 04:57 Urine Yeast Few per hpf (None Seen) H 06/07/18 04:57 Stool Occult Blood Positive (Negative) A 06/07/18 23:10 - Microbiology Findings Microbiology Findings: Microbiology, Last 48 Hours 06/08/18 06:04 Legionella Antigen - Final Urine,[place] Streptococcus pneumoniae Antigen (M - Final - Diagnostic Findings Chest x-ray: report reviewed, image reviewed - Clinical Findings Intake & Output: Intake & Output 06/08/18 06/08/18 06/09/18 15:59 23:59 07:59 Intake Total 467 / 467 243 / 243 711 / 711 Output Total 1000 / 1000 270 / 270 175 / 175 Balance -533 / -533 -27 / -27 536 / 536 Weight 115.2 kg Consult Discharge Plan - Plan [facility]errals: [facility] [Primary Care Provider] -
[2018-06-09] MEDS: Chlorhexidine Rinse 15 ML MOUTHWASH MM SCH ×2 (07:52→20:10)
[2018-06-09] MEDS: Aspirin 81 MG TAB.CHEW PO SCH (07:52)
[2018-06-09] MEDS: Loratadine 10 MG TABLET PO SCH (07:52)
[2018-06-09] MEDS: methylPREDNISolone 125 MG/2 ML VIAL IVP SCH ×3 (07:52→23:24)
[2018-06-09] MEDS: *HR* Acetylcysteine 20% 600 MG/3 ML ORAL SYRINGE PO SCH ×2 (07:53→20:10)
[2018-06-09] MEDS: cefTRIAXone 1,000 MG in Water for inj. (sterile) 20 ML 10 ML IVP SCH (07:53)
--- NOTE | 2018-06-09 08:50 | Electrocardiograph Report ---
[address] [address] Test Date: 2018-06-06 Pat Name: Johan Jane Department: 111 Room: [facility] Gender: M Hydrologist: : [id number] Requested By: Lise Grover Order Number: [id number] Reading MD: Marquise Lao Measurements Intervals [place] Rate: 86 P: 69 [place]: 234 QRS: -38 QRSD: 110 T: 60 QT: 352 QTc: 395 Interpretive Statements SINUS RHYTHM WITH FIRST DEGREE AV BLOCK MARKED LEFT AXIS DEVIATION LOW QRS VOLTAGE IN PRECORDIAL LEADS INCOMPLETE RIGHT BUNDLE BRANCH BLOCK Electronically Signed On 06-09-2018 8:49:09 EDT by Marquise Lao
[2018-06-09] MEDS: Metoprolol XL (24 HR) Succ 25 MG TAB.ER.24H PO SCH (10:40)
--- NOTE | 2018-06-09 11:02 | Nephrology Progress Note ---
Date of Encounter: 06/09/18 Time of Encounter: 09:00 - Assessment and Plan (1) IVAN (acute kidney injury) Current Visit: Yes Status: Acute This may actually be his baseline level of renal function consistent with CKD stage III since his labs throughout this hospitalization are stable. I'd recommend requesting medical records from his PCP for comparison. No indications for SALT GRINDER. Hyponatremia, improved with diuresis over the weekend. Hypokalemia, likely from the diuresis: agree with replacement. Serum Mg was already checked and is on target Anemia with notable iron deficiency: recommend replacement. Transfusion parameters as per primary. In general the goal Hgb in CKD is 10-11, but before EPO could be effective, he'll need to correct his iron deficiency. Elevated CPK, which is improving. Elevated trop as per primary/Cardiology. I recommend following a renal protective strategy, in general, but if he were to have a LHC from Cardiology, since he's at his presumed baseline, this is reasonable. My colleague gave NAC; I recommend a near euvolemic volume status and avoidance of other concomitant nephrotoxic Rx if able. Will follow with you. (2) Hypokalemia Current Visit: Yes Status: Acute See above (3) Elevated CK Current Visit: Yes Status: Resolved See above (4) Anemia Current Visit: Yes Status: Acute See above Qualifiers: Anemia type: unspecified type Qualified Code(s): D64.9 - Anemia, unspecified (5) Hyponatremia Current Visit: Yes Status: Resolved Improved. See above (6) Pneumonia Current Visit: Yes Status: Acute As per primary. Qualifiers: Pneumonia type: due to unspecified organism Laterality: right Lung location: upper lobe of lung Qualified Code(s): J18.1 - Lobar pneumonia, unspecified organism (7) Elevated troponin Current Visit: Yes Status: Acute See above Subjective Principal diagnosis: Elevated troponin Interval history: Pt was s/e earlier in the day, but d/t his intubation/sedation, the HPI/ subjective portion of his progress note is limited. Objective - Vital Signs Vital signs: Vital Signs Temp Pulse Resp BP Pulse Ox 06/09/18 10:00 71 18 94/59 96 06/09/18 09:50 18 94/55 96 06/09/18 09:00 73 18 90/56 96 06/09/18 08:00 97.6 F 82 18 88/57 96 06/09/18 07:31 18 92/57 97 06/09/18 07:00 73 18 89/54 95 06/09/18 06:00 68 18 98/60 97 06/09/18 05:29 18 100/60 96 06/09/18 05:00 66 18 100/60 96 06/09/18 04:00 67 18 105/62 96 06/09/18 03:36 20 103/63 97 06/09/18 03:00 62 18 103/61 97 06/09/18 02:33 18 103/63 97 06/09/18 02:00 63 18 101/62 97 06/09/18 01:00 67 18 104/59 97 06/09/18 00:00 65 18 99/61 94 06/08/18 23:45 95.7 F L 06/08/18 23:41 18 101/72 95 06/08/18 23:00 65 18 98/66 97 06/08/18 22:33 18 98/59 96 06/08/18 22:00 67 18 96/63 96 06/08/18 21:00 70 18 96/60 96 06/08/18 20:26 96.0 F L 06/08/18 20:00 69 18 97/57 96 06/08/18 19:51 18 102/67 95 06/08/18 19:00 71 18 99/60 95 06/08/18 18:00 79 18 106/70 94 06/08/18 17:00 70 18 100/60 94 06/08/18 16:50 18 99/60 94 06/08/18 16:00 96.3 F L 68 18 99/60 93 06/08/18 15:32 18 99/60 94 06/08/18 15:00 96.8 F L 18 95/60 94 06/08/18 14:00 75 18 96/60 90 06/08/18 13:30 18 102/64 90 06/08/18 13:00 70 18 102/64 94 06/08/18 12:00 98.4 F 70 18 105/63 94 06/08/18 11:07 18 102/64 95 Intake and Output 06/08/18 06/09/18 06/09/18 23:59 07:59 15:59 Intake Total 243 / 243 721 / 721 Output Total 270 / 270 175 / 175 75 / 75 Balance -27 / -27 546 / 546 -75 / -75 Intake: IV Fluids 243 / 243 721 / 721 PRECEDEX Premix 400 mcg In 100 63 / 63 100 / 100 ml @ 0.2 MCG/KG/HR 5.68 mls/hr IVC .[id number] [facility] Rx#:[id number] FentaNYL (PF) 1,000 MCG In 0.9 100 / 100 % Sodium Chloride 80 ML @ 50 MCG/HR 5 mls/hr IVC CONT [facility] Rx #:[id number] Heparin 25,000 UNIT/500 ML D5W 180 / 180 261 / 261 25,000 unit In 500 ml @ 9.2 UNIT/KG/HR 20.031 mls/hr IVC . Q24H [facility] Rx#:[id number] Rocephin 1,000 MG In Water for inj. (sterile) 10 ML @ 600 mls/ hr IVP DAILY [facility] Rx#:[id number] Zithromax 500 mg In Dextrose 5% 250 / 250 250 ML @ 252 mls/hr IVPB Q24H [facility] Rx#:[id number] Output: Catheter 250 / 250 175 / 175 75 / 75 Gastric Drainage Other: Meal NPO Weight 115.2 kg Blood Glucose* 223 - General Appearance Exam: General appearance: Present: sedated on ventilator, intubated, fatigue, frail EENT: Present: mucous membranes moist Neck: Present: supple Respiratory: Present: course breath sounds Cardiology: Present: no edema, regular rate, regular rhythm, normal S1, normal S2 Gastrointestinal: Present: normoactive bowel sounds, no guarding Integumentary: Present: warm and dry Additional Comments: Intubated / sedated Musculoskeletal: Present: no cyanosis, no clubbing - Lab 06/10/18 03:20 06/10/18 15:15 Most recent lab results ABG pH 7.42 pH Units (7.32-7.45) 06/09/18 05:00 ABG pCO2 44 mmHg (35-45) 06/09/18 05:00 ABG pO2 60 mmHg (85-104) L 06/09/18 05:00 ABG HCO3 28 mEq/L (21-27) H 06/09/18 05:00 ABG O2 Saturation 91 % (95-98) L 06/09/18 05:00 Calcium 9.0 mg/dL (8.6-10.3) 06/09/18 03:45 Magnesium 2.2 mg/dL (1.6-2.6) 06/09/18 03:45 Urine Creatinine 99 mg/dL 06/07/18 04:57 Urine Sodium 34.0 mEq/L 06/08/18 12:35 Consult Discharge Plan - Plan [facility]: [facility]Primary Care Provider[facility] -
--- NOTE | 2018-06-09 13:25 | Cardiology Progress Note ---
Date of Encounter: 06/09/18 Time of Encounter: 13:00 Assessment and Plan (1) NSTEMI (non-ST elevated myocardial infarction) Current Visit: Yes Status: Acute Troponin reportedly >40 at the AR, 17.24, 14.21, 12.36,8.45, 6.35. Presented to the AR with weakness, AMS, shortness of breath per records. Developed respiratory distress/failure 10/6 PM and was intubated and moved to ICU. Also with PNA and IVAN upon admission. CK elevated, ? Rhabdo component. TTE this stay: LVEF 55%, mild segmental LV systolic dysfunction, apical septal wall hypokinesis Significant risk factors for CAD; ideally recommend LHC when able (IVAN/PNA resolves); however now has anemia and positive occult stools. Discussed plan (with Dr. Pérez) with family; recommend conservative medical therapy for now. Can consider LHC prior to d/c if hemodynamically stable. Of note, now DNRCC-A. Continue heparin gtt and asa. Allergy to statins. Resume BB when able. (2) IVAN (acute kidney injury) Current Visit: Yes Status: Acute SCr 1.94 at AR. baseline unknown. Serum creatinine now 1.8. Continue to avoid nephrotoxins. Mgmt per Primary service, Nephrology has been consulted; appreciate recommendations. (3) Elevated CK Current Visit: Yes Status: Acute (4) Pneumonia Current Visit: Yes Status: Acute Mgmt per Primary service. Qualifiers: Pneumonia type: due to unspecified organism Laterality: right Lung location: upper lobe of lung Qualified Code(s): J18.1 - Lobar pneumonia, unspecified organism Discussion w patient/family: The assessment and plan as outlined above was discussed with the patient and/or family members who expressed understanding and agreement. All questions were answered. Thank you for involving us in the care of your patient. Please call with any questions. The patient will be discussed and reviewed with Dr. Pérez; changes to be made accordingly. Subjective Principal diagnosis: Elevated troponin Interval history: Seen and examined with Dr. Pérez. Events of yesterday reviewed; patient developed respiratory failure and subsequent intubation. Plan of care, labs/testing, and recommendations discussed in detail with family. Of note, now DNRCC-A Objective Vital Signs, Last 4 Hours Pulse Resp BP Pulse Ox 06/09/18 12:00 75 16 99/60 96 06/09/18 11:13 16 96/59 96 06/09/18 11:09 74 06/09/18 11:00 72 17 96/59 96 06/09/18 10:00 71 18 94/59 96 06/09/18 09:50 18 94/55 96 General: Other (intubated) HEENT: Atraumatic, Normocephaly Cardiac: Reg Rate and Rhythm, Normal S1 and S2 Lungs: Other (wheezes throughout) Neuro: Other (intubated) Abdomen: Soft Skin: No rashes noted on visualized skin Extremities: Other (mild pre-tibial edema) Results 06/09/18 03:45 06/09/18 03:45 Lab Results 06/09/18 06/09/18 03:45 03:45 WBC 10.2 D Hgb 9.9 L Hct 29.7 L Plt Count 162 Sodium 136 Potassium 3.2 L Chloride 100 Carbon Dioxide 28 BUN 40 H Creatinine 1.81 H Glucose 185 H Calcium 9.0 Magnesium 2.2 Active Medications Acetylcysteine (Acetylcysteine 20%) 600 mg PO BID [facility] Stop: 06/11/18 21:01 Last Admin: 06/09/18 07:53 Dose: 600 mg Albuterol/Ipratropium (Duoneb) 3 ml IH [id number] [facility] Stop: 12/07/18 12:01 Last Admin: 06/09/18 11:13 Dose: 3 ml Artificial Tears (Akwa Tears) 1 drop BOTH EYES Q2HR PRN; Protocol PRN Reason: Dry Eyes Stop: 12/08/18 02:45 Artificial Tears (Akwa Tears) 1 drop BOTH EYES Q4HR [facility] PRN Reason: Protocol Stop: 12/08/18 04:01 Last Admin: 06/09/18 11:24 Dose: Not Given Aspirin (Aspirin) 81 mg PO DAILY [facility] Stop: 12/05/18 09:01 Last Admin: 06/09/18 07:52 Dose: 81 mg Chlorhexidine Gluconate (Chlorhexidine Rinse) 15 ml MM BID [facility] Stop: 12/08/18 09:01 Last Admin: 06/09/18 07:52 Dose: 15 ml Dextrose/Water (Dextrose 50% (Syg)) 25 ml IVP AD PRN PRN Reason: Hypoglycemia Stop: 12/08/18 05:57 Glucagon (Glucagen) 1 mg IM ONCE PRN PRN Reason: Hypoglycemia Stop: 12/08/18 05:57 Glucose (Gluctose) 15 gm PO ONCE PRN PRN Reason: Hypoglycemia Stop: 12/08/18 05:57 Glucose (Gluctose) 30 gm PO ONCE PRN PRN Reason: Hypoglycemia Stop: 12/08/18 05:57 Haloperidol Lactate (Haldol) 5 mg IVP Q6HR PRN PRN Reason: Anxiety Stop: 12/08/18 13:09 Heparin Sodium (Porcine) (Heparin) 4,000 unit IVP Q6HR PRN PRN Reason: SEE COMMENTS Stop: 12/04/18 20:26 Heparin Sodium (Porcine) (Heparin) 2,000 unit IVP Q6H PRN PRN Reason: SEE COMMENTS Stop: 12/04/18 20:26 Last Admin: 06/06/18 19:17 Dose: 2,000 unit Heparin Sodium/Dextrose (Heparin 25,000 Unit/500 Ml D5w) 25,000 unit in 500 mls @ 20.031 mls/hr IVC .Q24H [facility]; 9.2 UNIT/KG/HR PRN Reason: Protocol Stop: 12/04/18 20:31 Last Titration: 06/09/18 05:21 Dose: 13.29 unit/kg/hr, 28.936 mls/hr Azithromycin 500 mg/ Dextrose 250 mls @ 252 mls/hr IVPB Q24H [facility] Stop: 12/05/18 21:01 Last Infusion: 06/09/18 05:29 Dose: Infused Ceftriaxone Sodium 1,000 mg/ (Sterile Water) 10 mls @ 600 mls/hr IVP DAILY [facility] Stop: 12/05/18 09:01 Last Infusion: 06/09/18 07:55 Dose: Infused Propofol (Diprivan) 1,000 mg in 100 mls @ 3.438 mls/hr IVC .Q24H [facility]; 5 MCG/KG/ MIN PRN Reason: Protocol Stop: 12/08/18 03:16 Last Admin: 06/09/18 05:20 Dose: Not Given Norepinephrine Bitartrate 4 mg (/ Dextrose) 254 mls @ 19.05 mls/hr IVC CONT [facility] ; 5 MCG/MIN PRN Reason: Protocol Stop: 12/08/18 05:31 Last Admin: 06/09/18 05:20 Dose: Not Given Dextrose (Dextrose 5%) 1,000 mls @ 100 mls/hr IVC .Q10H PRN PRN Reason: HYPOGLYCEMIA Stop: 12/08/18 05:57 Dexmedetomidine HCl (Precedex Premix) 400 mcg in 100 mls @ 5.68 mls/hr IVC .[id number] [facility]; 0.2 MCG/KG/HR PRN Reason: Protocol Stop: 12/08/18 08:01 Last Admin: 06/09/18 05:27 Dose: Not Given Fentanyl Citrate 1,000 mcg/ (Sodium Chloride) 100 mls @ 5 mls/hr IVC CONT [facility]INE; 50 MCG/HR PRN Reason: Protocol Stop: 12/08/18 08:01 Last Admin: 06/09/18 10:11 Dose: Not Given Insulin Human Lispro (Humalog) 0 units SQ Q6HR [facility] PRN Reason: Protocol Stop: 12/08/18 06:01 Last Admin: 06/09/18 11:28 Dose: 2 unit Levothyroxine Sodium (Synthroid) 125 mcg PO 0630 [facility] Stop: 12/05/18 06:31 Last Admin: 06/09/18 05:27 Dose: Not Given Loratadine (Claritin) 10 mg PO DAILY [facility] Stop: 12/05/18 09:01 Last Admin: 06/09/18 07:52 Dose: 10 mg Methylprednisolone (Solu-Medrol) 60 mg IVP Q8HR [facility] Stop: 12/08/18 01:36 Last Admin: 06/09/18 07:52 Dose: 60 mg Metoprolol Succinate (Toprol Xl) 12.5 mg PO DAILY [facility] Stop: 12/05/18 09:46 Last Admin: 06/09/18 10:40 Dose: Not Given Naloxone HCl (Narcan) 0.4 mg IVP Q2MIN PRN PRN Reason: SEE COMMENTS Stop: 12/05/18 03:37 Pantoprazole Sodium (Protonix) 40 mg IVP 0630 [facility] Stop: 12/08/18 06:31 Last Admin: 06/09/18 05:26 Dose: 40 mg - Imaging and Cardiology Echo: report reviewed Other Results: 12 hour tele: avg HR=SR. No events noted. - EKG Interpretation EKG results cardiology: personally reviewed Consult Discharge Plan - Plan [facility]errals: [facility] [Primary Care Provider] -
[2018-06-09] MEDS: Heparin 25,000 UNIT/500 ML D5W 25,000 UNIT/500 ML BAG IVC SCH (15:08)
[2018-06-09 15:26] LABS: Basophils % 0.1 %; Hematocrit 31.9 % (37.5-50.1); Hemoglobin 10.7 g/dL (12.9-16.9); Immature Granulocytes % 0.9 % (0-4); Lymphocytes # 0.2 K/mcL (0.6-4.6); Lymphocytes % 1.5 %; Mean Corpuscular HGB Conc 33.5 g/dL (31.6-35.5); Mean Corpuscular Volume 89.4 fL (83.0-100.0); Mean Platelet Volume 11.1 fL (9.4-12.4); Monocytes # 0.6 K/mcL (0.0-1.3); Monocytes % 3.7 %; Neutrophils # 14.2 K/mcL (1.6-8.9); Platelet Count 203 K/mcL (140-400); Red Blood Count 3.57 M/mcL (4.19-5.50); Red Cell Distribution Width 13.9 % (11.5-14.5); Segmented Neutrophils % 93.8 %
[2018-06-09 15:37] LABS: Calcium 9.3 mg/dL (8.6-10.3); Potassium 3.6 mEq/L (3.5-5.1)
--- NOTE | 2018-06-09 16:01 | Oncology Inp Progress Note ---
Date of Encounter: 06/09/18 Time of Encounter: 12:00 (1) NSTEMI (non-ST elevated myocardial infarction) Current Visit: Yes Status: Acute Assessment and plan: Patient with acute cardiac event, anemia thrombocytopenia worsened status post hospitalization per hospitalist patient had been continued on hydration prior to declined from 11.5 to around 10 g. Is currently intubated, received diuretics? overnight. MAnagement per cardiology. (2) Anemia Current Visit: Yes Status: Acute Assessment and plan: Anemia workup in progress possible dilutional, changes due to fluid shift, renal insufficiency. We will obtain folic acid B12 serum protein electrophoresis. He is continued on anticoagulation Hemoglobin hematocrit is stable area did stool occult blood positive noted, GI evaluation possibly at later date. Thrombocytopenia has been stable. Right lung consolidation to be monitored in subsequent scans. Pl notify hemonc if any further concerns with blood counts. Plan d.w family at bedside Qualifiers: Anemia type: unspecified type Qualified Code(s): D64.9 - Anemia, unspecified Oncology: Subj Interval history: Patient is awake intubated on mechanical ventilation family at bedside. - Constitutional Vitals: Vital Signs Temp Pulse Resp BP Pulse Ox 06/09/18 15:30 97.0 F L 06/09/18 15:21 66 06/09/18 15:00 66 14 99/69 96 06/09/18 14:00 68 14 103/63 96 06/09/18 13:42 98.1 F 06/09/18 13:00 75 14 95/58 96 06/09/18 12:00 75 16 99/60 96 06/09/18 11:13 16 96/59 96 06/09/18 11:09 74 06/09/18 11:00 72 17 96/59 96 06/09/18 10:00 71 18 94/59 96 06/09/18 09:50 18 94/55 96 06/09/18 09:00 73 18 90/56 96 06/09/18 08:00 97.6 F 82 18 88/57 96 06/09/18 07:31 18 92/57 97 06/09/18 07:00 73 18 89/54 95 06/09/18 06:00 68 18 98/60 97 06/09/18 05:29 18 100/60 96 06/09/18 05:00 66 18 100/60 96 06/09/18 04:00 67 18 105/62 96 06/09/18 03:36 20 103/63 97 06/09/18 03:00 62 18 103/61 97 06/09/18 02:33 18 103/63 97 06/09/18 02:00 63 18 101/62 97 06/09/18 01:00 67 18 104/59 97 06/09/18 00:00 65 18 99/61 94 06/08/18 23:45 95.7 F L 06/08/18 23:41 18 101/72 95 06/08/18 23:00 65 18 98/66 97 06/08/18 22:33 18 98/59 96 06/08/18 22:00 67 18 96/63 96 06/08/18 21:00 70 18 96/60 96 06/08/18 20:26 96.0 F L 06/08/18 20:00 69 18 97/57 96 06/08/18 19:51 18 102/67 95 06/08/18 19:00 71 18 99/60 95 06/08/18 18:00 79 18 106/70 94 06/08/18 17:00 70 18 100/60 94 06/08/18 16:50 18 99/60 94 06/08/18 16:00 96.3 F L 68 18 99/60 93 Intake and Output 06/08/18 06/09/18 06/09/18 23:59 07:59 15:59 Intake Total 243 / 243 731 / 731 399 / 399 Output Total 270 / 270 175 / 175 525 / 525 Balance -27 / -27 556 / 556 -126 / -126 Intake: IV Fluids 243 / 243 731 / 731 399 / 399 PRECEDEX Premix 400 mcg In 100 63 / 63 110 / 110 90 / 90 ml @ 0.2 MCG/KG/HR 5.68 mls/hr IVC .[id number] [facility] Rx#:[id number] FentaNYL (PF) 1,000 MCG In 0.9 100 / 100 70 / 70 % Sodium Chloride 80 ML @ 50 MCG/HR 5 mls/hr IVC CONT [facility] Rx #:[id number] Heparin 25,000 UNIT/500 ML D5W 180 / 180 261 / 261 239 / 239 25,000 unit In 500 ml @ 9.2 UNIT/KG/HR 20.031 mls/hr IVC . Q24H [facility] Rx#:[id number] Rocephin 1,000 MG In Water for inj. (sterile) 10 ML @ 600 mls/ hr IVP DAILY [facility] Rx#:[id number] Zithromax 500 mg In Dextrose 5% 250 / 250 250 ML @ 252 mls/hr IVPB Q24H [facility] Rx#:[id number] Output: Catheter 250 / 250 175 / 175 325 / 325 Gastric Drainage 200 / 200 Other: Meal NPO # Bowel Movements 0 Weight 115.2 kg Blood Glucose* 223 147 General appearance: mild distress - Head Head exam: Present: atraumatic, normal inspection - Eye Eye exam: Present: sclera anicteric - ENT Additional comments: trach in place - Neck Neck exam: Present: normal inspection - Respiratory Respiratory exam: Present: CTAB - Cardiovascular Cardiovascular exam: Present: +S1, +S2 - GI/Abdominal GI/Abdominal exam: Present: soft Additional comments: non tender - Neurological Exam Additional comments: awake moving ext Oncology: Obj Data - Labs CBC & Chem 7: 06/09/18 14:37 06/09/18 14:37 Labs: Laboratory Results - last 24 hr 06/08/18 06/08/18 06/08/18 02:40 06:11 12:05 WBC RBC Hgb Hct MCV MCH MCHC RDW Plt Count MPV Immature Gran % Seg Neutrophils % Lymphocytes % Monocytes % Eosinophils % Basophils % Neutrophils # Lymphocytes # Monocytes # Eosinophils # Basophils # Heparin Anti-Xa, Unfract Sample Site ABG pH ABG pCO2 ABG pO2 ABG HCO3 ABG Total CO2 ABG O2 Saturation ABG Base Excess Reilly Test Respiration Rate O2 Delivery Device Blood Gas Modality Inspired O2 Tidal Volume PEEP Sodium Potassium Chloride Carbon Dioxide BUN Creatinine Est GFR ( Amer) Est GFR (Non-Af Amer) BUN/Creatinine Ratio Glucose POC Glucose 155 H 154 H 228 H Calculated Osmolality Calcium Magnesium 06/08/18 06/08/18 06/09/18 17:57 23:11 03:45 WBC 10.2 D RBC 3.37 L Hgb 9.9 L Hct 29.7 L MCV 88.1 MCH 29.4 MCHC 33.3 RDW 13.7 Plt Count 162 MPV 10.7 Immature Gran % 0.7 Seg Neutrophils % 91.5 Lymphocytes % 3.1 Monocytes % 4.6 Eosinophils % 0.0 Basophils % 0.1 Neutrophils # 9.3 H Lymphocytes # 0.3 L Monocytes # 0.5 Eosinophils # 0.0 Basophils # 0.0 Heparin Anti-Xa, Unfract Sample Site ABG pH ABG pCO2 ABG pO2 ABG HCO3 ABG Total CO2 ABG O2 Saturation ABG Base Excess Reilly Test Respiration Rate O2 Delivery Device Blood Gas Modality Inspired O2 Tidal Volume PEEP Sodium Potassium Chloride Carbon Dioxide BUN Creatinine Est GFR ( Amer) Est GFR (Non-Af Amer) BUN/Creatinine Ratio Glucose POC Glucose 260 H 223 H Calculated Osmolality Calcium Magnesium 06/09/18 06/09/18 06/09/18 03:45 03:45 05:00 WBC RBC Hgb Hct MCV MCH MCHC RDW Plt Count MPV Immature Gran % Seg Neutrophils % Lymphocytes % Monocytes % Eosinophils % Basophils % Neutrophils # Lymphocytes # Monocytes # Eosinophils # Basophils # Heparin Anti-Xa, Unfract 0.64 Sample Site R Radial ABG pH 7.42 ABG pCO2 44 ABG pO2 60 L ABG HCO3 28 H ABG Total CO2 29 H ABG O2 Saturation 91 L ABG Base Excess 3 Reilly Test Positive Respiration Rate 18 O2 Delivery Device Adult Vent Blood Gas Modality ASSIST CONTROL Inspired O2 50.0 Tidal Volume 500 PEEP 8 Sodium 136 Potassium 3.2 L Chloride 100 Carbon Dioxide 28 BUN 40 H Creatinine 1.81 H Est GFR ( Amer) 43 L Est GFR (Non-Af Amer) 36 L BUN/Creatinine Ratio 22 Glucose 185 H POC Glucose Calculated Osmolality 297 Calcium 9.0 Magnesium 2.2 06/09/18 06/09/18 14:37 14:37 WBC 15.1 H RBC 3.57 L Hgb 10.7 L Hct 31.9 L MCV 89.4 MCH 30.0 MCHC 33.5 RDW 13.9 Plt Count 203 MPV 11.1 Immature Gran % 0.9 Seg Neutrophils % 93.8 Lymphocytes % 1.5 Monocytes % 3.7 Eosinophils % 0.0 Basophils % 0.1 Neutrophils # 14.2 H Lymphocytes # 0.2 L Monocytes # 0.6 Eosinophils # 0.0 Basophils # 0.0 Heparin Anti-Xa, Unfract Sample Site ABG pH ABG pCO2 ABG pO2 ABG HCO3 ABG Total CO2 ABG O2 Saturation ABG Base Excess Reilly Test Respiration Rate O2 Delivery Device Blood Gas Modality Inspired O2 Tidal Volume PEEP Sodium 137 Potassium 3.6 Chloride 100 Carbon Dioxide 30 H BUN 43 H Creatinine 1.93 H Est GFR ( Amer) 40 L Est GFR (Non-Af Amer) 33 L BUN/Creatinine Ratio 22 Glucose 152 H POC Glucose Calculated Osmolality 298 Calcium 9.3 Magnesium - Impressions Impressions Chest X-Ray 06/09/18 16:00 IMPRESSION: 1. Stable bilateral interstitial changes which may represent pulmonary edema. 2. Stable bilateral asymmetric pleural effusions, atelectasis more prominent on the right. D/ / 06/09/2018 07:50:42 Jersey Savage MD / marko Interpreting Provider: Jersey Savage MD - ABG Interpretation ABG results: ABG ABG pH 7.42 pH Units (7.32-7.45) 06/09/18 05:00 ABG pCO2 44 mmHg (35-45) 06/09/18 05:00 ABG pO2 60 mmHg (85-104) L 06/09/18 05:00 ABG O2 Saturation 91 % (95-98) L 06/09/18 05:00 PT/INR, D-dimer PT 14.0 Seconds (9.4-12.1) H 06/05/18 04:26 Consult Discharge Plan - Plan [facility]errals: [facility] [Primary Care Provider[facility] - Inpatient Charges Provider: Dr. Candace Gee Follow up - Inpatient: [id number]
[2018-06-09] MEDS: Azithromycin 500 MG in D5% in Water 250 ML IVPB SCH (20:10)
[2018-06-10 03:35] LABS: Basophils % 0.1 %; Hematocrit 32.7 % (37.5-50.1); Hemoglobin 10.9 g/dL (12.9-16.9); Immature Granulocytes % 1.6 % (0-4); Lymphocytes # 0.2 K/mcL (0.6-4.6); Lymphocytes % 1.3 %; Mean Corpuscular HGB Conc 33.3 g/dL (31.6-35.5); Mean Corpuscular Hemoglobin 29.9 pg (28.0-33.3); Mean Corpuscular Volume 89.6 fL (83.0-100.0); Mean Platelet Volume 10.7 fL (9.4-12.4); Monocytes # 0.5 K/mcL (0.0-1.3); Monocytes % 3.3 %; Neutrophils # 14.6 K/mcL (1.6-8.9); Platelet Count 214 K/mcL (140-400); Red Blood Count 3.65 M/mcL (4.19-5.50); Red Cell Distribution Width 13.9 % (11.5-14.5); Segmented Neutrophils % 93.7 %
[2018-06-10] MEDS: Ipratropium/Albuterol Neb 3 ML IH SCH ×5 (03:37→20:04)
[2018-06-10] MEDS: Norepinephrine 4 MG in D5% in Water 250 ML IVC SCH ×2 (03:47→23:09)
[2018-06-10] MEDS: Artificial Tears SOLN 15 ML BOTTLE BOTH EYES SCH ×6 (03:47→23:08)
[2018-06-10 03:49] LABS: Magnesium 2.3 mg/dL (1.6-2.6); Phosphorous 4.2 mg/dL (2.7-4.5)
[2018-06-10 03:50] LABS: Calcium 9.1 mg/dL (8.6-10.3); Potassium 3.5 mEq/L (3.5-5.1)
[2018-06-10 05:03] LABS: ABG Base Excess 6 mEq/L (-2 to 3); ABG HCO3 32 mEq/L (21-27); ABG Oxygen Saturation 94 % (95-98); ABG PCO2 55 mmHg (35-45); ABG PH 7.38 pH Units (7.32-7.45); ABG PO2 75 mmHg (85-104); ABG TCO2 34 mEq/L (20-26); Blood Gas Modality PRVC; Blood Gas PEEP 8 cm H2O; Blood Gas Respiration Rate 14; Blood Gas VT 500 cc
[2018-06-10] MEDS: Pantoprazole 40 MG VIAL IVP SCH (05:17)
[2018-06-10] MEDS: Dexmedetomidine HCl 400 MCG/100 ML MLS IVC SCH ×3 (05:17→11:58)
[2018-06-10] MEDS: Insulin LISPRO 300 UNITS/3 ML VIAL SQ SCH ×4 (05:22→23:09)
[2018-06-10] MEDS ORDERED: Furosemide 40 MG/4 ML VIAL IVP ONE (07:14)
[2018-06-10] MEDS ORDERED: Potassium Chloride Elixir 20 MEQ/15 ML UDC GTUBE ONE (07:14)
--- NOTE | 2018-06-10 07:25 | Pulmonology Progress Note ---
<Lino David W - Last Filed: 06/10/18 07:33> Date of Encounter: 06/10/18 Time of Encounter: 07:33 Assessment and Plan (1) Acute respiratory failure Current Visit: Yes Status: Acute Qualifiers: Respiratory failure complication: hypoxia and hypercapnia Qualified Code(s) : J96.01 - Acute respiratory failure with hypoxia; J96.02 - Acute respiratory failure with hypercapnia (2) NSTEMI (non-ST elevated myocardial infarction) Current Visit: Yes Status: Acute (3) Acute on chronic diastolic (congestive) heart failure Current Visit: Yes Status: Acute (4) IVAN (acute kidney injury) Current Visit: Yes Status: Acute (5) Pneumonia Current Visit: Yes Status: Acute Qualifiers: Pneumonia type: due to unspecified organism Laterality: right Lung location: upper lobe of lung Qualified Code(s): J18.1 - Lobar pneumonia, unspecified organism Subjective Interval history: l Objective PUL Vital signs: Last Vital Signs Temp 96.8 F L 06/10/18 04:00 Pulse 67 06/10/18 07:00 Resp 17 06/10/18 07:30 BP 98/70 06/10/18 07:30 Pulse Ox 97 06/10/18 07:30 Ventilator Settings Ventilator Settings: Ventilator Settings, Last 8 Hours Ventilator Tidal Volume 500 Setting Ventilator Tidal Volume 500 Setting Ventilator Tidal Volume 500 Setting Ventilator Tidal Volume 500 Setting Ventilator Tidal Volume 500 Setting Ventilator Tidal Volume 500 Setting Ventilator Tidal Volume 500 Setting Ventilator Tidal Volume 500 Setting Ventilator Tidal Volume 500 Setting Ventilator Tidal Volume 500 Setting Ventilator Tidal Volume 500 Setting Ventilator Respiratory Rate 14 Setting Ventilator Respiratory Rate 14 Setting Ventilator Respiratory Rate 14 Setting Ventilator Respiratory Rate 14 Setting Ventilator Respiratory Rate 14 Setting Ventilator Respiratory Rate 14 Setting Ventilator Respiratory Rate 14 Setting Ventilator Respiratory Rate 14 Setting Ventilator Respiratory Rate 14 Setting Ventilator Respiratory Rate 14 Setting Ventilator Respiratory Rate 14 Setting Actual Respiratory Rate 16 Actual Respiratory Rate 24 Actual Respiratory Rate 21 Actual Respiratory Rate 14 Actual Respiratory Rate 14 Actual Respiratory Rate 15 Actual Respiratory Rate 15 Actual Respiratory Rate 14 Actual Respiratory Rate 17 Actual Respiratory Rate 17 Actual Respiratory Rate 15 Actual Respiratory Rate 15 Actual Respiratory Rate 18 Positive End Expiratory 8 Pressure Positive End Expiratory 8 Pressure Positive End Expiratory 8 Pressure Positive End Expiratory 8 Pressure Positive End Expiratory 8 Pressure Positive End Expiratory 8 Pressure Positive End Expiratory 8 Pressure Positive End Expiratory 8 Pressure Positive End Expiratory 8 Pressure Positive End Expiratory 8 Pressure Positive End Expiratory 8 Pressure Positive End Expiratory 8 Pressure Positive End Expiratory 8 Pressure Positive End Expiratory 8 Pressure Peak Inspiratory Airway 13 Pressure Peak Inspiratory Airway 13 Pressure Peak Inspiratory Airway 15 Pressure Peak Inspiratory Airway 14 Pressure Peak Inspiratory Airway 25 Pressure Peak Inspiratory Airway 20 Pressure Peak Inspiratory Airway 24 Pressure Peak Inspiratory Airway 23 Pressure Peak Inspiratory Airway 20 Pressure Peak Inspiratory Airway 21 Pressure Peak Inspiratory Airway 21 Pressure Peak Inspiratory Airway 22 Pressure Peak Inspiratory Airway 23 Pressure Results - Laboratory Findings CBC and BMP: 06/10/18 03:20 06/10/18 03:20 ABG ABG pH 7.38 pH Units (7.32-7.45) 06/10/18 05:00 ABG pCO2 55 mmHg (35-45) H 06/10/18 05:00 ABG pO2 75 mmHg (85-104) L 06/10/18 05:00 ABG O2 Saturation 94 % (95-98) L 06/10/18 05:00 PT/INR, D-dimer PT 14.0 Seconds (9.4-12.1) H 06/05/18 04:26 Abnormal lab findings: Abnormal lab results WBC 15.6 K/mcL (4.3-11.1) H 06/10/18 03:20 RBC 3.65 M/mcL (4.19-5.50) L 06/10/18 03:20 Hgb 10.9 g/dL (12.9-16.9) L 06/10/18 03:20 Hct 32.7 % (37.5-50.1) L 06/10/18 03:20 Neutrophils # 14.6 K/mcL (1.6-8.9) H 06/10/18 03:20 Lymphocytes # 0.2 K/mcL (0.6-4.6) L 06/10/18 03:20 PT 14.0 Seconds (9.4-12.1) H 06/05/18 04:26 APTT 45.6 Seconds (26.0-36.0) H 06/05/18 04:26 Heparin Anti-Xa, Unfract 0.78 IU/mL (0.30-0.70) H 06/10/18 03:20 ABG pCO2 55 mmHg (35-45) H 06/10/18 05:00 ABG pO2 75 mmHg (85-104) L 06/10/18 05:00 ABG HCO3 32 mEq/L (21-27) H 06/10/18 05:00 ABG Total CO2 34 mEq/L (20-26) H 06/10/18 05:00 ABG O2 Saturation 94 % (95-98) L 06/10/18 05:00 ABG Base Excess 6 mEq/L (-2 to 3) H 06/10/18 05:00 BUN 49 mg/dL (8-23) H 06/10/18 03:20 Creatinine 1.80 mg/dL (0.70-1.30) H 06/10/18 03:20 Est GFR ( Amer) 44 (> 60) L 06/10/18 03:20 Est GFR (Non-Af Amer) 36 (> 60) L 06/10/18 03:20 BUN/Creatinine Ratio 27 (6-26) H 06/10/18 03:20 Glucose 169 mg/dL (70-105) H 06/10/18 03:20 POC Glucose 204 mg/dL (70-99) H 06/09/18 23:21 Calculated Osmolality 305 (280-300) H 06/10/18 03:20 Venous Ioniz Calcium 1.14 mmol/L (1.15-1.35) L 06/08/18 14:21 Iron 18 mcg/dL (65-175) L 06/08/18 03:36 % Saturation 9 % (20-55) L 06/08/18 03:36 Transferrin 145 mg/dL (203-362) L 06/08/18 03:36 Ferritin 573 ng/mL (20-250) H 06/08/18 03:36 AST 76 Units/L (13-39) H 06/05/18 03:55 Troponin I 6.35 ng/mL (< 0.04) H* 06/08/18 08:12 B-Natriuretic Peptide 351 pg/mL (Less than 100) H 06/10/18 03:20 Albumin 3.4 g/dL (3.5-5.7) L 06/05/18 03:55 Albumin/Globulin Ratio 1.0 (1.1-2.2) L 06/05/18 03:55 HDL Cholesterol 39 mg/dL (40-59) L 06/05/18 03:55 Urine Clarity Cloudy (Clear) A 06/07/18 04:57 Ur Specific [place] 1.007 (1.010-1.025) L 06/07/18 04:57 Urine Protein 100 mg/dL (Neg-Trace) H 06/07/18 04:57 Urine Blood Small (Negative) H 06/07/18 04:57 Urine Microscopic WBC 5-15 per hpf (0-3) H 06/07/18 04:57 Ur Squamous Epith Cells Many per lpf (None-Few) H 06/07/18 04:57 Urine Yeast Few per hpf (None Seen) H 06/07/18 04:57 Stool Occult Blood Positive (Negative) A 06/07/18 23:10 - Microbiology Findings Microbiology Findings: Microbiology, Last 48 Hours 06/09/18 08:15 Sputum Culture - Preliminary Sputum 06/08/18 06:04 Legionella Antigen - Final Urine,[place] Streptococcus pneumoniae Antigen (M - Final - Clinical Findings Intake & Output: Intake & Output 06/09/18 06/09/18 06/10/18 15:59 23:59 07:59 Intake Total 399 / 399 130 / 130 1076 / 1076 Output Total 525 / 525 100 / 100 300 / 300 Balance -126 / -126 30 / 30 776 / 776 Weight 114.9 kg Consult Discharge Plan - Plan [facility]: [facility]Primary Care Provider[facility] - - Attending Attestation I examined this patient and my medical decision-making was reviewed with the Resident Physician. I agree with the documented findings, disposition and treatment plan as described except to the extent set forth below. We independently had [id number] contact with the patient Patient seen and examined at bedside Labs, radiology, chart personally reviewed. Management was reviewed during multidisciplinary critical care rounds. 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 Cardiology holding on the left heart catheterization at present time appreciate the recommendations he remains on ACS protocol GI: Stool call positive for blood although H&H and platelets have been stable despite use of heparin infusion would consider GI consultation in the future Nutrition: Nothing by mouth for now pending liberation Renal: Likely acute on chronic kidney disease creatinine slightly elevated from previous days level urine output remains marginal we will challenge her diuresis today nephrology following appreciate recommendations UOP Monitored, Cont to Trend sCr and monitor Electrolytes. ID: Suspected pneumonia with worsening leukocytosis reculture patient and will broaden antibiotics to cover for hospital associated organisms except MRSA as nares swab was negative Heme/Onc: Hemoglobin and platelets are stable patients on a heparin infusion for acute coronary syndrome hematology has evaluated the patient Endo: Glucose Monitored and acceptable Integ/MSK: Skin Care per routine ICU Nursing Protocol to prevent ulcers. Lines: All lines examined without evidence of infection : Dispo: Patient will remain in ICU today CODE: DNAR. <Rio Mendez R - Last Filed: 06/10/18 11:07> Date of Encounter: 06/10/18 Assessment and Plan (1) Acute respiratory failure Current Visit: Yes Status: Acute Acute respiratory failure with hypoxia and hypercapnia, initial chest x-rays consistent with pulmonary edema. Have been holding diuresis for possible LHC with cardiology. Patient currently tolerating spontaneous breathing trial with CPAP this a.m. we will continue follow and assess readiness for extubation. Patient will likely require extubation to BiPAP. No LHC plan by cardiology at present. We will begin diuresis for volume overload now to optimize respiratory status prior to extubation. Qualifiers: Respiratory failure complication: hypoxia and hypercapnia Qualified Code(s) : J96.01 - Acute respiratory failure with hypoxia; J96.02 - Acute respiratory failure with hypercapnia (2) NSTEMI (non-ST elevated myocardial infarction) Current Visit: Yes Status: Acute Troponins initially greater than 40 at the [place] urgent care and patient was transferred to [facility] for further evaluation and management. Troponins have been down trending since admission. Patient did initially refuse LHC with cardiology and was placed on medical management with heparin drip and aspirin. Prior to intubation patient reconsidered and was slated for LHC on Saturday 06/09. Cardiology is following the patient with no plan for LHC at present. Will continue medical management with heparin and aspirin. Cardiology plans for further discussion with patient after extubation regarding definitive versus conservative management. Appreciate cardiology recommendations and input. (3) Pneumonia Current Visit: Yes Status: Acute Community-acquired pneumonia identified on chest x-ray at admission. Legionella and streptococcal pneumonia testing negative, blood cultures with negative growth. Patient is currently on day 4 of ceftriaxone and azithromycin, WBC count has increased since yesterday afternoon to 15. Patient remains afebrile with stable vital signs. No evidence of new infection. Will obtain repeat blood and urine cultures. Broaden antibiotic coverage to Zosyn. Patient remains intubated and ventilated, certainly at risk for ventilator acquired pneumonia. MRSA nasal screening was negative, will not start vancomycin at this time. Qualifiers: Pneumonia type: due to unspecified organism Laterality: right Lung location: upper lobe of lung Qualified Code(s): J18.1 - Lobar pneumonia, unspecified organism (4) IVAN (acute kidney injury) Current Visit: Yes Status: Acute Patient did present with elevation in creatinine initially 1.85. Renal function has remained stable since admission. The patient's baseline renal status is unknown. He is 87 years old and may very well be at his baseline in the evaluation of IVAN versus CKD. Nephrology had been consultation, appreciate their recommendations. No plan for HD at this time. Continue to avoid nephrotoxic agents if possible. Monitor renal status and electrolytes particularly while patient is undergoing diuresis. (5) Anemia Current Visit: Yes Status: Acute Anemia identified at admission subsequently found to be fecal occult positive. No evidence of active bleeding. Hemodynamics and H/H remained stable. Patient is on heparin drip and aspirin for an NSTEMI without evidence of bleeding. We will continue to monitor H/H. Consider GI consultation pending clinical status and laboratory findings. Qualifiers: Anemia type: unspecified type Qualified Code(s): D64.9 - Anemia, unspecified (6) Elevated troponin Current Visit: Yes Status: Acute Troponins have been down trending. Cardiology is following, appreciate their recommendations. Heparin drip and aspirin, will resume beta leroy as tolerated by the patient. (7) Elevated CK Current Visit: Yes Status: Resolved CK has normalized (8) Hypothyroid Current Visit: Yes Status: Acute Continue patient's home Synthroid Qualifiers: Hypothyroidism type: unspecified Qualified Code(s): E03.9 - Hypothyroidism , unspecified (9) Hypokalemia Current Visit: Yes Status: Acute Replacing potassium Patient will start diuresis today, will monitor and replace electrolytes as necessary (10) Leukocytosis Current Visit: Yes Status: Acute Recent increase in WBC to 15. Patient is on day 6 of azithromycin and ceftriaxone. No evidence of new infection. Will obtain repeat blood and urine cultures. Broaden antibiotic coverage to Zosyn. Of note patient was placed on methylprednisolone on 06/08 and may be playing a role in the recent leukocytosis. Qualifiers: Leukocytosis type: unspecified Qualified Code(s): D72.829 - Elevated white blood cell count, unspecified (11) DVT prophylaxis Current Visit: Yes Status: Acute Patient is therapeutic on heparin drip. Subjective Principal diagnosis: Elevated troponin Interval history: Mild agitation and delirium overnight controlled with Precedex and fentanyl. Objective PUL Vital signs: Last Vital Signs Temp 96.8 F L 06/10/18 04:00 Pulse 67 06/10/18 07:00 Resp 24 06/10/18 07:00 BP 101/57 06/10/18 07:00 Pulse Ox 93 06/10/18 07:00 General appearance: no acute distress, agitated Eyes: nonicteric ENT: oropharynx moist, other (ET tube in place) Neck: supple, no lymphadenopathy Effort: normal, other (CPAP trial and progress, patient doing well) Auscultation: right: diminished breath sounds, bilateral: clear Percussion: bilateral: not dull Cardiovascular: regular rate and rhythm Gastrointestinal: normoactive bowel sounds, soft, non-tender, non-distended Integumentary: normal Extremities: no cyanosis, pink and warm, edema (Mild lower extremity edema) Musculoskeletal: no deformities Gait: normal posture normal mental status, non-focal exam, other (Limited exam due to intubation) mood appropriate, other (Mildly anxious, controlled with Precedex and fentanyl) Ventilator Settings Ventilator Settings: Ventilator Settings, Last 8 Hours Ventilator Tidal Volume 500 Setting Ventilator Tidal Volume 500 Setting Ventilator Tidal Volume 500 Setting Ventilator Tidal Volume 500 Setting Ventilator Tidal Volume 500 Setting Ventilator Tidal Volume 500 Setting Ventilator Tidal Volume 500 Setting Ventilator Tidal Volume 500 Setting Ventilator Tidal Volume 500 Setting Ventilator Tidal Volume 500 Setting Ventilator Tidal Volume 500 Setting Ventilator Respiratory Rate 14 Setting Ventilator Respiratory Rate 14 Setting Ventilator Respiratory Rate 14 Setting Ventilator Respiratory Rate 14 Setting Ventilator Respiratory Rate 14 Setting Ventilator Respiratory Rate 14 Setting Ventilator Respiratory Rate 14 Setting Ventilator Respiratory Rate 14 Setting Ventilator Respiratory Rate 14 Setting Ventilator Respiratory Rate 14 Setting Ventilator Respiratory Rate 14 Setting Actual Respiratory Rate 24 Actual Respiratory Rate 21 Actual Respiratory Rate 14 Actual Respiratory Rate 14 Actual Respiratory Rate 15 Actual Respiratory Rate 15 Actual Respiratory Rate 14 Actual Respiratory Rate 17 Actual Respiratory Rate 17 Actual Respiratory Rate 15 Actual Respiratory Rate 15 Actual Respiratory Rate 18 Positive End Expiratory 8 Pressure Positive End Expiratory 8 Pressure Positive End Expiratory 8 Pressure Positive End Expiratory 8 Pressure Positive End Expiratory 8 Pressure Positive End Expiratory 8 Pressure Positive End Expiratory 8 Pressure Positive End Expiratory 8 Pressure Positive End Expiratory 8 Pressure Positive End Expiratory 8 Pressure Positive End Expiratory 8 Pressure Positive End Expiratory 8 Pressure Positive End Expiratory 8 Pressure Peak Inspiratory Airway 13 Pressure Peak Inspiratory Airway 15 Pressure Peak Inspiratory Airway 14 Pressure Peak Inspiratory Airway 25 Pressure Peak Inspiratory Airway 20 Pressure Peak Inspiratory Airway 24 Pressure Peak Inspiratory Airway 23 Pressure Peak Inspiratory Airway 20 Pressure Peak Inspiratory Airway 21 Pressure Peak Inspiratory Airway 21 Pressure Peak Inspiratory Airway 22 Pressure Peak Inspiratory Airway 23 Pressure Results - Laboratory Findings CBC and BMP: 06/10/18 03:20 06/10/18 03:20 ABG ABG pH 7.38 pH Units (7.32-7.45) 06/10/18 05:00 ABG pCO2 55 mmHg (35-45) H 06/10/18 05:00 ABG pO2 75 mmHg (85-104) L 06/10/18 05:00 ABG O2 Saturation 94 % (95-98) L 06/10/18 05:00 PT/INR, D-dimer PT 14.0 Seconds (9.4-12.1) H 06/05/18 04:26 Abnormal lab findings: Abnormal lab results WBC 15.6 K/mcL (4.3-11.1) H 06/10/18 03:20 RBC 3.65 M/mcL (4.19-5.50) L 06/10/18 03:20 Hgb 10.9 g/dL (12.9-16.9) L 06/10/18 03:20 Hct 32.7 % (37.5-50.1) L 06/10/18 03:20 Neutrophils # 14.6 K/mcL (1.6-8.9) H 06/10/18 03:20 Lymphocytes # 0.2 K/mcL (0.6-4.6) L 06/10/18 03:20 PT 14.0 Seconds (9.4-12.1) H 06/05/18 04:26 APTT 45.6 Seconds (26.0-36.0) H 06/05/18 04:26 Heparin Anti-Xa, Unfract 0.78 IU/mL (0.30-0.70) H 06/10/18 03:20 ABG pCO2 55 mmHg (35-45) H 06/10/18 05:00 ABG pO2 75 mmHg (85-104) L 06/10/18 05:00 ABG HCO3 32 mEq/L (21-27) H 06/10/18 05:00 ABG Total CO2 34 mEq/L (20-26) H 06/10/18 05:00 ABG O2 Saturation 94 % (95-98) L 06/10/18 05:00 ABG Base Excess 6 mEq/L (-2 to 3) H 06/10/18 05:00 BUN 49 mg/dL (8-23) H 06/10/18 03:20 Creatinine 1.80 mg/dL (0.70-1.30) H 06/10/18 03:20 Est GFR ( Amer) 44 (> 60) L 06/10/18 03:20 Est GFR (Non-Af Amer) 36 (> 60) L 06/10/18 03:20 BUN/Creatinine Ratio 27 (6-26) H 06/10/18 03:20 Glucose 169 mg/dL (70-105) H 06/10/18 03:20 POC Glucose 204 mg/dL (70-99) H 06/09/18 23:21 Calculated Osmolality 305 (280-300) H 06/10/18 03:20 Venous Ioniz Calcium 1.14 mmol/L (1.15-1.35) L 06/08/18 14:21 Iron 18 mcg/dL (65-175) L 06/08/18 03:36 % Saturation 9 % (20-55) L 06/08/18 03:36 Transferrin 145 mg/dL (203-362) L 06/08/18 03:36 Ferritin 573 ng/mL (20-250) H 06/08/18 03:36 AST 76 Units/L (13-39) H 06/05/18 03:55 Troponin I 6.35 ng/mL (< 0.04) H* 06/08/18 08:12 B-Natriuretic Peptide 351 pg/mL (Less than 100) H 06/10/18 03:20 Albumin 3.4 g/dL (3.5-5.7) L 06/05/18 03:55 Albumin/Globulin Ratio 1.0 (1.1-2.2) L 06/05/18 03:55 HDL Cholesterol 39 mg/dL (40-59) L 06/05/18 03:55 Urine Clarity Cloudy (Clear) A 06/07/18 04:57 Ur Specific [place] 1.007 (1.010-1.025) L 06/07/18 04:57 Urine Protein 100 mg/dL (Neg-Trace) H 06/07/18 04:57 Urine Blood Small (Negative) H 06/07/18 04:57 Urine Microscopic WBC 5-15 per hpf (0-3) H 06/07/18 04:57 Ur Squamous Epith Cells Many per lpf (None-Few) H 06/07/18 04:57 Urine Yeast Few per hpf (None Seen) H 06/07/18 04:57 Stool Occult Blood Positive (Negative) A 06/07/18 23:10 - Microbiology Findings Microbiology Findings: Microbiology, Last 48 Hours 06/09/18 08:15 Sputum Culture - Preliminary Sputum 06/08/18 06:04 Legionella Antigen - Final Urine,[place] Streptococcus pneumoniae Antigen (M - Final - Clinical Findings Intake & Output: Intake & Output 06/09/18 06/09/18 06/10/18 15:59 23:59 07:59 Intake Total 399 / 399 130 / 130 1076 / 1076 Output Total 525 / 525 100 / 100 300 / 300 Balance -126 / -126 30 / 30 776 / 776 Weight 114.9 kg
[2018-06-10] MEDS: Aspirin 81 MG TAB.CHEW PO SCH (07:35)
[2018-06-10] MEDS: Chlorhexidine Rinse 15 ML MOUTHWASH MM SCH ×2 (07:35→18:45)
[2018-06-10] MEDS: Loratadine 10 MG TABLET PO SCH (07:35)
[2018-06-10] MEDS: methylPREDNISolone 125 MG/2 ML VIAL IVP SCH ×3 (07:35→23:12)
[2018-06-10] MEDS: *HR* Acetylcysteine 20% 600 MG/3 ML ORAL SYRINGE PO SCH (07:36)
[2018-06-10] MEDS: Piperacillin/Tazobactam 3.375 GM in 0.9 % Sodium Chloride Mini Bag 100 ML IVPB SCH ×3 (08:03→23:12)
[2018-06-10 08:25] LABS: Bilirubin,Urine Negative (Negative); Blood,Urine Large (Negative); Color,Urine Yellow (Yellow); Glucose,Urine (UA) Normal (Normal); Ketones,Urine Negative (Negative); Leukocyte Esterase,Urine Trace (Negative); Nitrite,Urine Negative (Negative); Protein,Urine Negative (Neg-Trace); Specific Gravity,Urine 1.012 (1.010-1.025); Urobilinogen,Urine Normal (Normal)
[2018-06-10 08:29] LABS: Bacteria,Urine None Seen per hpf (None-Few); Hyaline Casts,Urine Few per lpf (None-Few); Squamous Epithelial Cell,Urine Moderate per lpf (None-Few)
[2018-06-10 08:30] LABS: Clarity,Urine Slightly Hazy (Clear)
[2018-06-10 08:39] LABS: Mucus,Urine Few (Few); Renal Epithelial Cells,Urine Few per hpf (None-Few); Transitional Epi Cells,Urine Few per hpf (None-Few)
[2018-06-10 08:40] LABS: RBC,Urine 15-30 per hpf (0-3); Yeast,Urine Few per hpf (None Seen)
[2018-06-10] MEDS: Metoprolol XL (24 HR) Succ 25 MG TAB.ER.24H PO SCH (10:57)
[2018-06-10] MEDS: Heparin 25,000 UNIT/500 ML D5W 25,000 UNIT/500 ML BAG IVC SCH (10:59)
[2018-06-10] MEDS: FentaNYL (PF) 1,000 MCG in 0.9 % Sodium Chloride 80 ML IVC SCH (11:00)
--- NOTE | 2018-06-10 11:00 | Nephrology Progress Note ---
Date of Encounter: 06/10/18 Time of Encounter: 08:55 - Assessment and Plan (1) IVAN (acute kidney injury) Current Visit: Yes Status: Acute He remains very stable in terms of his renal function, and though I do not have his baseline SCr and eGFR, I would not be surprised if he is near it, since his SCr has fluctuated in this range during his entire [facility] hospitalization. I recommend following a renal protective strategy, in general, with avoidance of nephrotoxins as able. No indications for [employer] and I read that Cardio is not planning a C. No need for NAC then, and since he's quite stable in terms of renal function, I will sign-off at this point. Please feel free to call or re-consult as needed. Thank you for having consulted the [facility]. (2) Hypokalemia Current Visit: Yes Status: Acute Improved (3) Elevated CK Current Visit: Yes Status: Resolved Resolved (4) Anemia Current Visit: Yes Status: Acute Stable Qualifiers: Anemia type: unspecified type Qualified Code(s): D64.9 - Anemia, unspecified (5) Hyponatremia Current Visit: Yes Status: Resolved Improved/resolved (6) Pneumonia Current Visit: Yes Status: Acute As per primary. Qualifiers: Pneumonia type: due to unspecified organism Laterality: right Lung location: upper lobe of lung Qualified Code(s): J18.1 - Lobar pneumonia, unspecified organism (7) Elevated troponin Current Visit: Yes Status: Acute As per primary. I read that Cardiology plans no C d/t anemia with +occult blood in the stool. Subjective Principal diagnosis: Elevated troponin Interval history: Pt was s/e and was intubated thus limiting subjective hx. Objective - Vital Signs Vital signs: Vital Signs Temp Pulse Resp BP Pulse Ox 06/10/18 10:00 73 14 90/53 96 06/10/18 09:45 19 94/59 97 06/10/18 09:00 74 13 100/60 95 06/10/18 08:00 71 18 106/68 96 06/10/18 07:49 73 06/10/18 07:30 17 98/70 97 06/10/18 07:00 96.8 F L 67 24 101/57 93 06/10/18 06:04 16 117/67 97 06/10/18 06:00 71 14 117/67 96 06/10/18 05:00 71 14 117/67 96 06/10/18 04:00 96.8 F L 70 15 128/83 96 06/10/18 03:40 14 119/76 96 06/10/18 03:00 66 14 128/75 95 06/10/18 02:00 68 17 134/80 96 06/10/18 01:26 14 136/81 96 06/10/18 01:00 71 15 132/79 95 06/10/18 00:09 96.9 F L 06/10/18 00:00 73 15 125/75 96 06/09/18 23:40 20 127/78 96 06/09/18 23:00 73 15 120/71 95 06/09/18 22:00 62 17 113/74 95 06/09/18 21:37 16 112/73 97 06/09/18 21:00 62 14 112/73 97 06/09/18 20:25 97.5 F L 06/09/18 20:00 65 15 111/67 96 06/09/18 19:39 16 106/71 97 06/09/18 19:00 64 15 108/69 97 06/09/18 18:00 64 14 109/73 97 06/09/18 17:02 14 107/66 96 06/09/18 17:00 69 16 108/68 96 06/09/18 16:08 17 91/61 98 06/09/18 16:00 73 14 91/61 94 06/09/18 15:30 97.0 F L 06/09/18 15:21 66 06/09/18 15:00 66 14 99/69 96 06/09/18 14:00 68 14 103/63 96 06/09/18 13:42 98.1 F 06/09/18 13:30 16 95/58 97 06/09/18 13:00 75 14 95/58 96 06/09/18 12:00 75 16 99/60 96 06/09/18 11:13 16 96/59 96 06/09/18 11:09 74 06/09/18 11:00 72 17 96/59 96 Intake and Output 06/09/18 06/10/18 06/10/18 23:59 07:59 15:59 Intake Total 130 / 130 1076 / 1076 Output Total 100 / 100 400 / 400 Balance 30 / 30 676 / 676 Intake: IV Fluids 130 / 130 856 / 856 PRECEDEX Premix 400 mcg In 100 100 / 100 200 / 200 ml @ 0.2 MCG/KG/HR 5.68 mls/hr IVC .[id number] [facility] Rx#:[id number] FentaNYL (PF) 1,000 MCG In 0.9 30 / 30 % Sodium Chloride 80 ML @ 50 MCG/HR 5 mls/hr IVC CONT [facility] Rx #:[id number] Heparin 25,000 UNIT/500 ML D5W 406 / 406 25,000 unit In 500 ml @ 9.2 UNIT/KG/HR 20.031 mls/hr IVC . Q24H [facility] Rx#:[id number] Zithromax 500 mg In Dextrose 5% 250 / 250 250 ML @ 252 mls/hr IVPB Q24H [facility] Rx#:[id number] Tube Feeding 220 / 220 Output: Catheter 100 / 100 400 / 400 Other: # Bowel Movements 0 Weight 114.9 kg Blood Glucose* 151 204 Patient Weight 06/10/18 23:59 Weight 114.9 kg - General Appearance General appearance: Present: sedated on ventilator, intubated, fatigue, frail EENT: Present: mucous membranes moist Neck: Present: supple Respiratory: Present: course breath sounds Cardiology: Present: no edema, regular rate, regular rhythm, normal S1, normal S2 Gastrointestinal: Present: normoactive bowel sounds, no guarding Integumentary: Present: warm and dry Additional Comments: Intubated / sedated Musculoskeletal: Present: no cyanosis, no clubbing - Lab 06/10/18 03:20 06/10/18 15:15 Most recent lab results ABG pH 7.38 pH Units (7.32-7.45) 06/10/18 05:00 ABG pCO2 55 mmHg (35-45) H 06/10/18 05:00 ABG pO2 75 mmHg (85-104) L 06/10/18 05:00 ABG HCO3 32 mEq/L (21-27) H 06/10/18 05:00 ABG O2 Saturation 94 % (95-98) L 06/10/18 05:00 Calcium 9.1 mg/dL (8.6-10.3) 06/10/18 03:20 Phosphorus 4.2 mg/dL (2.7-4.5) 06/10/18 03:20 Magnesium 2.3 mg/dL (1.6-2.6) 06/10/18 03:20 Urine Creatinine 99 mg/dL 06/07/18 04:57 Urine Sodium 34.0 mEq/L 06/08/18 12:35 Consult Discharge Plan - Plan [facility]: [facility] [Primary Care Provider[facility] -
--- NOTE | 2018-06-10 11:47 | Cardiology Progress Note ---
Date of Encounter: 06/10/18 Time of Encounter: 11:20 Assessment and Plan (1) NSTEMI (non-ST elevated myocardial infarction) Current Visit: Yes Status: Acute Troponin reportedly >40 at the [place], 17.24, 14.21, 12.36,8.45, 6.35. Presented to the [place] with weakness, AMS, shortness of breath per records. Developed respiratory distress/failure 10/6 PM and was intubated and moved to ICU. Also with PNA and IVAN upon admission. CK elevated, ? Rhabdo component. TTE this stay: LVEF 55%, mild segmental LV systolic dysfunction, apical septal wall hypokinesis Significant risk factors for CAD; ideally recommend LHC when able (IVAN/PNA resolves); however now has anemia and positive occult stools. Discussed plan (with Dr. Pérez) with family; recommend conservative medical therapy for now. Can consider LHC prior to d/c if hemodynamically stable. Of note, now DNRCC-A. Continue ASA; will discuss with Dr. Pérez regarding discontinuation of heparin gtt, has now infused >48 hours. Allergy to statins. Resume BB when able; remains hypotensive today. (2) IVAN (acute kidney injury) Current Visit: Yes Status: Acute SCr 1.94 at [place]. baseline unknown. Continue to avoid nephrotoxins. Mgmt per Primary service, Nephrology has been consulted; appreciate recommendations. (3) Elevated CK Current Visit: Yes Status: Resolved (4) Pneumonia Current Visit: Yes Status: Acute Mgmt per Primary service. Qualifiers: Pneumonia type: due to unspecified organism Laterality: right Lung location: upper lobe of lung Qualified Code(s): J18.1 - Lobar pneumonia, unspecified organism Discussion w patient/family: The assessment and plan as outlined above was discussed with the patient and/or family members who expressed understanding and agreement. All questions were answered. Thank you for involving us in the care of your patient. Please call with any questions. The patient will be discussed and reviewed with Dr. Pérez; changes to be made accordingly. Subjective Principal diagnosis: Elevated troponin Interval history: Seen and examined with Dr. Pérez. Remains in ICU, on Bipap No chest pain repoted. Plan of care, labs/testing, and recommendations discussed in detail with family. Of note, now DNRCC-A Objective Vital Signs, Last 4 Hours Pulse Resp BP Pulse Ox 06/10/18 11:02 72 1009/18 10:00 73 14 90/53 96 06/10/18 09:45 19 94/59 97 06/10/18 09:00 74 13 100/60 95 06/10/18 08:00 71 18 106/68 96 06/10/18 07:49 73 General: Conversant, Other (on Bipap) HEENT: Atraumatic, Normocephaly Neck: No JVD Cardiac: Reg Rate and Rhythm Lungs: Other (Coarse breath sounds with wheezing throughout) Neuro: Alert and responsive Abdomen: Soft Skin: No rashes noted on visualized skin Musculoskeletal: No Chest Wall Tenderness Extremities: Other (mild BLE edema) Results 06/10/18 03:20 06/10/18 03:20 Lab Results 06/09/18 06/09/18 06/10/18 14:37 14:37 03:20 WBC 15.1 H 15.6 H Hgb 10.7 L 10.9 L Hct 31.9 L 32.7 L Plt Count 203 214 Sodium 137 Potassium 3.6 Chloride 100 Carbon Dioxide 30 H BUN 43 H Creatinine 1.93 H Glucose 152 H Calcium 9.3 Magnesium B-Natriuretic Peptide 06/10/18 06/10/18 06/10/18 03:20 03:20 03:20 WBC Hgb Hct Plt Count Sodium 139 Potassium 3.5 Chloride 101 Carbon Dioxide 28 BUN 49 H Creatinine 1.80 H Glucose 169 H Calcium 9.1 Magnesium 2.3 B-Natriuretic Peptide 351 H Active Medications Acetylcysteine (Acetylcysteine 20%) 600 mg PO BID [facility] Stop: 06/11/18 21:01 Last Admin: 06/10/18 07:36 Dose: 600 mg Albuterol/Ipratropium (Duoneb) 3 ml IH [id number] [facility] Stop: 12/07/18 12:01 Last Admin: 06/10/18 07:30 Dose: 3 ml Artificial Tears (Akwa Tears) 1 drop BOTH EYES Q2HR PRN; Protocol PRN Reason: Dry Eyes Stop: 12/08/18 02:45 Artificial Tears (Akwa Tears) 1 drop BOTH EYES Q4HR [facility] PRN Reason: Protocol Stop: 12/08/18 04:01 Last Admin: 06/10/18 10:57 Dose: Not Given Aspirin (Aspirin) 81 mg PO DAILY [facility] Stop: 12/05/18 09:01 Last Admin: 06/10/18 07:35 Dose: 81 mg Chlorhexidine Gluconate (Chlorhexidine Rinse) 15 ml MM BID [facility] Stop: 12/08/18 09:01 Last Admin: 06/10/18 07:35 Dose: 15 ml Dextrose/Water (Dextrose 50% (Syg)) 25 ml IVP AD PRN PRN Reason: Hypoglycemia Stop: 12/08/18 05:57 Glucagon (Glucagen) 1 mg IM ONCE PRN PRN Reason: Hypoglycemia Stop: 12/08/18 05:57 Glucose (Gluctose) 15 gm PO ONCE PRN PRN Reason: Hypoglycemia Stop: 12/08/18 05:57 Glucose (Gluctose) 30 gm PO ONCE PRN PRN Reason: Hypoglycemia Stop: 12/08/18 05:57 Haloperidol Lactate (Haldol) 5 mg IVP Q6HR PRN PRN Reason: Anxiety Stop: 12/08/18 13:09 Heparin Sodium (Porcine) (Heparin) 4,000 unit IVP Q6HR PRN PRN Reason: SEE COMMENTS Stop: 12/04/18 20:26 Heparin Sodium (Porcine) (Heparin) 2,000 unit IVP Q6H PRN PRN Reason: SEE COMMENTS Stop: 12/04/18 20:26 Last Admin: 06/06/18 19:17 Dose: 2,000 unit Heparin Sodium/Dextrose (Heparin 25,000 Unit/500 Ml D5w) 25,000 unit in 500 mls @ 20.031 mls/hr IVC .Q24H [facility]; 9.2 UNIT/KG/HR PRN Reason: Protocol Stop: 12/04/18 20:31 Last Admin: 06/10/18 10:59 Dose: 11.17 unit/kg/hr, 24.33 mls/hr Propofol (Diprivan) 1,000 mg in 100 mls @ 3.438 mls/hr IVC .Q24H [facility]; 5 MCG/KG/ MIN PRN Reason: Protocol Stop: 12/08/18 03:16 Last Admin: 06/10/18 00:35 Dose: Not Given Norepinephrine Bitartrate 4 mg (/ Dextrose) 254 mls @ 19.05 mls/hr IVC CONT [facility] ; 5 MCG/MIN PRN Reason: Protocol Stop: 12/08/18 05:31 Last Admin: 06/10/18 03:47 Dose: Not Given Dextrose (Dextrose 5%) 1,000 mls @ 100 mls/hr IVC .Q10H PRN PRN Reason: HYPOGLYCEMIA Stop: 12/08/18 05:57 Dexmedetomidine HCl (Precedex Premix) 400 mcg in 100 mls @ 5.68 mls/hr IVC .[id number] [facility]; 0.2 MCG/KG/HR PRN Reason: Protocol Stop: 12/08/18 08:01 Last Titration: 06/10/18 09:00 Dose: 0 mcg/kg/hr, 0 mls/hr Fentanyl Citrate 1,000 mcg/ (Sodium Chloride) 100 mls @ 5 mls/hr IVC CONT [facility]; 50 MCG/HR PRN Reason: Protocol Stop: 12/08/18 08:01 Last Admin: 06/10/18 11:00 Dose: Not Given Piperacillin Sod/Tazobactam (Sod 3.375 gm/ Sodium Chloride) 100 mls @ 25 mls/ hr IVPB Q8HR [facility] Stop: 12/10/18 08:01 Last Admin: 06/10/18 08:03 Dose: 25 mls/hr Insulin Human Lispro (Humalog) 0 units SQ Q6HR [facility] PRN Reason: Protocol Stop: 12/08/18 06:01 Last Admin: 06/10/18 05:22 Dose: 2 unit Levothyroxine Sodium (Synthroid) 125 mcg PO 0630 [facility] Stop: 12/05/18 06:31 Last Admin: 06/10/18 05:17 Dose: 125 mcg Loratadine (Claritin) 10 mg PO DAILY [facility] Stop: 12/05/18 09:01 Last Admin: 06/10/18 07:35 Dose: 10 mg Methylprednisolone (Solu-Medrol) 60 mg IVP Q8HR [facility] Stop: 12/08/18 01:36 Last Admin: 06/10/18 07:35 Dose: 60 mg Metoprolol Succinate (Toprol Xl) 12.5 mg PO DAILY [facility] Stop: 12/05/18 09:46 Last Admin: 06/10/18 10:57 Dose: Not Given Naloxone HCl (Narcan) 0.4 mg IVP Q2MIN PRN PRN Reason: SEE COMMENTS Stop: 12/05/18 03:37 Pantoprazole Sodium (Protonix) 40 mg IVP 0630 [facility] Stop: 12/08/18 06:31 Last Admin: 06/10/18 05:17 Dose: 40 mg - Imaging and Cardiology Echo: report reviewed - EKG Interpretation EKG results cardiology: personally reviewed Consult Discharge Plan - Plan [facility]: [facility] [Primary Care Provider] -
[2018-06-10 15:45] LABS: Calcium 9.4 mg/dL (8.6-10.3)
--- NOTE | 2018-06-10 17:49 | Electrocardiograph Report ---
[address] [address] Test Date: 2018-06-08 Pat Name: Johan Jane Department: 112 Room: [facility] Gender: M Rock Lather: : 1930 Requested By: Rio Mendez Order Number: [id number] Reading MD: Wesley Chacon Measurements Intervals [place] Rate: 89 P: -56 OK: 171 QRS: -44 QRSD: 101 T: 38 QT: 374 QTc: 421 Interpretive Statements SINUS RHYTHM WITH OCCASIONAL SUPRAVENTRICULAR PREMATURE COMPLEXES LEFT AXIS DEVIATION LOW QRS VOLTAGE IN PRECORDIAL LEADS POSSIBLE RIGHT VENTRICULAR CONDUCTION DELAY Electronically Signed On 06-10-2018 17:48:02 EDT by Wesley Chacon
[2018-06-11] MEDS: Ipratropium/Albuterol Neb 3 ML IH SCH ×6 (00:32→20:30)
[2018-06-11] MEDS: Artificial Tears SOLN 15 ML BOTTLE BOTH EYES SCH ×4 (00:57→14:47)
[2018-06-11] MEDS: Dexmedetomidine HCl 400 MCG/100 ML MLS IVC SCH (03:43)
[2018-06-11 04:30] LABS: Basophils # 0.1 K/mcL (0.0-0.2); Basophils % 0.3 %; Hematocrit 32.9 % (37.5-50.1); Hemoglobin 10.8 g/dL (12.9-16.9); Immature Granulocytes % 3.8 % (0-4); Lymphocytes # 0.3 K/mcL (0.6-4.6); Lymphocytes % 1.7 %; Mean Corpuscular HGB Conc 32.8 g/dL (31.6-35.5); Mean Corpuscular Hemoglobin 29.4 pg (28.0-33.3); Mean Corpuscular Volume 89.6 fL (83.0-100.0); Monocytes # 0.5 K/mcL (0.0-1.3); Monocytes % 2.8 %; Neutrophils # 15.6 K/mcL (1.6-8.9); Nucleated Red Blood Cells 0.1 /100 WBC (0); Platelet Count 275 K/mcL (140-400); Red Blood Count 3.67 M/mcL (4.19-5.50); Red Cell Distribution Width 14.3 % (11.5-14.5); Segmented Neutrophils % 91.4 %
[2018-06-11 04:41] LABS: Calcium 9.4 mg/dL (8.6-10.3); Potassium 4.5 mEq/L (3.5-5.1)
[2018-06-11 04:42] LABS: Magnesium 2.3 mg/dL (1.6-2.6)
[2018-06-11] MEDS: Insulin LISPRO 300 UNITS/3 ML VIAL SQ SCH ×4 (05:13→23:16)
[2018-06-11] MEDS: Pantoprazole 40 MG VIAL IVP SCH (05:13)
--- NOTE | 2018-06-11 07:48 | Pulmonology Progress Note ---
<Lino David W - Last Filed: 06/11/18 08:14> Date of Encounter: 06/11/18 Assessment and Plan (1) Acute respiratory failure Current Visit: Yes Status: Acute Qualifiers: Respiratory failure complication: hypoxia and hypercapnia Qualified Code(s) : J96.01 - Acute respiratory failure with hypoxia; J96.02 - Acute respiratory failure with hypercapnia (2) NSTEMI (non-ST elevated myocardial infarction) Current Visit: Yes Status: Acute (3) Acute on chronic diastolic (congestive) heart failure Current Visit: Yes Status: Acute (4) IVAN (acute kidney injury) Current Visit: Yes Status: Acute (5) Pneumonia Current Visit: Yes Status: Acute Qualifiers: Pneumonia type: due to unspecified organism Laterality: right Lung location: upper lobe of lung Qualified Code(s): J18.1 - Lobar pneumonia, unspecified organism Objective PUL Vital signs: Last Vital Signs Temp 97.9 F 06/11/18 07:56 Pulse 98 06/11/18 06:00 Resp 16 06/11/18 07:22 BP 121/69 06/11/18 06:00 Pulse Ox 95 06/11/18 07:22 Results - Laboratory Findings CBC and BMP: 06/11/18 04:03 06/11/18 04:03 ABG ABG pH 7.38 pH Units (7.32-7.45) 06/10/18 05:00 ABG pCO2 55 mmHg (35-45) H 06/10/18 05:00 ABG pO2 75 mmHg (85-104) L 06/10/18 05:00 ABG O2 Saturation 94 % (95-98) L 06/10/18 05:00 PT/INR, D-dimer PT 14.0 Seconds (9.4-12.1) H 06/05/18 04:26 Abnormal lab findings: Abnormal lab results WBC 17.0 K/mcL (4.3-11.1) H 06/11/18 04:03 RBC 3.67 M/mcL (4.19-5.50) L 06/11/18 04:03 Hgb 10.8 g/dL (12.9-16.9) L 06/11/18 04:03 Hct 32.9 % (37.5-50.1) L 06/11/18 04:03 Neutrophils # 15.6 K/mcL (1.6-8.9) H 06/11/18 04:03 Lymphocytes # 0.3 K/mcL (0.6-4.6) L 06/11/18 04:03 Nucleated RBCs/100 WBC 0.1 /100 WBC (0) H 06/11/18 04:03 PT 14.0 Seconds (9.4-12.1) H 06/05/18 04:26 APTT 45.6 Seconds (26.0-36.0) H 06/05/18 04:26 ABG pCO2 55 mmHg (35-45) H 06/10/18 05:00 ABG pO2 75 mmHg (85-104) L 06/10/18 05:00 ABG HCO3 32 mEq/L (21-27) H 06/10/18 05:00 ABG Total CO2 34 mEq/L (20-26) H 06/10/18 05:00 ABG O2 Saturation 94 % (95-98) L 06/10/18 05:00 ABG Base Excess 6 mEq/L (-2 to 3) H 06/10/18 05:00 BUN 62 mg/dL (8-23) H 06/11/18 04:03 Creatinine 1.98 mg/dL (0.70-1.30) H 06/11/18 04:03 Est GFR ( Amer) 39 (> 60) L 06/11/18 04:03 Est GFR (Non-Af Amer) 32 (> 60) L 06/11/18 04:03 BUN/Creatinine Ratio 31 (6-26) H 06/11/18 04:03 Glucose 127 mg/dL (70-105) H 06/11/18 04:03 POC Glucose 122 mg/dL (70-99) H 06/10/18 23:03 Calculated Osmolality 313 (280-300) H 06/11/18 04:03 Venous Ioniz Calcium 1.14 mmol/L (1.15-1.35) L 06/08/18 14:21 Iron 18 mcg/dL (65-175) L 06/08/18 03:36 % Saturation 9 % (20-55) L 06/08/18 03:36 Transferrin 145 mg/dL (203-362) L 06/08/18 03:36 Ferritin 573 ng/mL (20-250) H 06/08/18 03:36 AST 76 Units/L (13-39) H 06/05/18 03:55 Troponin I 6.35 ng/mL (< 0.04) H* 06/08/18 08:12 B-Natriuretic Peptide 351 pg/mL (Less than 100) H 06/10/18 03:20 Albumin 3.4 g/dL (3.5-5.7) L 06/05/18 03:55 Albumin/Globulin Ratio 1.0 (1.1-2.2) L 06/05/18 03:55 HDL Cholesterol 39 mg/dL (40-59) L 06/05/18 03:55 Urine Blood Large (Negative) H 06/10/18 08:00 Ur Leukocyte Esterase Trace (Negative) H 06/10/18 08:00 Urine Microscopic RBC 15-30 per hpf (0-3) H 06/10/18 08:00 Urine Microscopic WBC 5-15 per hpf (0-3) H 06/10/18 08:00 Ur Squamous Epith Cells Moderate per lpf (None-Few) H 06/10/18 08:00 Urine Yeast Few per hpf (None Seen) H 06/10/18 08:00 Ur Culture Indicated? YES (NO) A 06/10/18 08:00 Stool Occult Blood Positive (Negative) A 06/07/18 23:10 - Microbiology Findings Microbiology Findings: Microbiology, Last 48 Hours 06/10/18 08:00 Urine Culture - Final Urine,[place] No growth. 06/09/18 08:15 Sputum Culture - Preliminary Sputum 06/10/18 08:21 Blood Culture - Preliminary Peripheral Venipuncture Culture is incubating and being continuously monitored for growth. Final report to follow. 06/10/18 08:15 Blood Culture - Preliminary Peripheral Venipuncture Culture is incubating and being continuously monitored for growth. Final report to follow. - Clinical Findings Intake & Output: Intake & Output 06/10/18 06/11/18 06/11/18 23:59 07:59 15:59 Intake Total 325 / 325 258 / 258 Output Total 355 / 355 450 / 450 Balance -30 / -30 -192 / -192 Weight 115 kg Consult Discharge Plan - Plan [facility]errals: [facility] [Primary Care Provider] - - Attending Attestation I examined this patient and my medical decision-making was reviewed with the Resident Physician. I agree with the documented findings, disposition and treatment plan as described except to the extent set forth below. We independently had [id number] contact with the patient Patient seen and examined at bedside Labs, radiology, chart personally reviewed. Management was reviewed during multidisciplinary critical care rounds. AUDIOMETRIST: Patient is awake and following commands and suspect mild delirium will focus on sleep-wake cycle holiness and avoidance of the sensory deprivation start melatonin Pulm: Acute on chronic hypoxic hypercapnic respiratory failure successfully liberated from the ventilator yesterday to nasal cannula will use BiPAP as needed and start diuresis for her heart failure Cards: NSTEMI medical management for now cardiology following starting diuresis for heart failure reinstitute beta leroy continue aspirin GI: [place] bowel regimen Nutrition: Advance diet as tolerated Renal: AK I stable nephrology has signed off start diuresis UOP Monitored, Cont to Trend sCr and monitor Electrolytes. ID: White count remains elevated afebrile on broad-spectrum antibiotics cultures negative clinically stable continue to monitor if any change in clinical course would recommend infectious disease consultation Heme/Onc: Hemoglobin and platelets are stable he is on heparin infusion which I will discuss with cardiology about stopping Endo: Glucose Monitored Integ/MSK: Skin Care per routine ICU Nursing Protocol to prevent ulcers. Lines: All lines examined without evidence of infection : Dispo: Stable for transfer to stepdown for ongoing care CODE: DNAR <Rio Mendez R - Last Filed: 06/11/18 16:08> Date of Encounter: 06/11/18 Time of Encounter: 07:48 Assessment and Plan (1) Acute respiratory failure Current Visit: Yes Status: Acute Acute respiratory failure with hypoxia and hypercapnia, initial chest x-rays consistent with pulmonary edema. Initially required intubation and ventilation. Patient was successfully extubated yesterday. Utilize BiPAP overnight, currently on 4 L [place] oxygen. Patient did receive 1 dose of IV Lasix yesterday, urine output improved. Will trial additional dose of Lasix this a.m. and follow her blood pressure for tolerance and urine output. Patient may require additional dose of Lasix this evening. Patient remains hemodynamically stable. Ready for step down, signed out and accepted by Dr. Stokes this afternoon Qualifiers: Respiratory failure complication: hypoxia and hypercapnia Qualified Code(s) : J96.01 - Acute respiratory failure with hypoxia; J96.02 - Acute respiratory failure with hypercapnia (2) NSTEMI (non-ST elevated myocardial infarction) Current Visit: Yes Status: Acute Troponins initially greater than 40 at the [place] urgent care and patient was transferred to [facility] for further evaluation and management. Troponins have been down trending since admission. Patient did initially refuse LHC with cardiology and was placed on medical management with heparin drip and aspirin. Prior to intubation patient reconsidered and was slated for LHC on Saturday 06/09. Since intubation cardiology has deferred LHC to a later date. At this time he remains on heparin drip, cardiology to decide whether he needs to continue with this. Will follow and appreciate their recommendations. Cardiology following patient for determination of inpatient versus outpatient LHC. Will continue daily aspirin and initiate low-dose beta leroy as blood pressure tolerates. (3) Pneumonia Current Visit: Yes Status: Acute Community-acquired pneumonia identified on chest x-ray at admission. Legionella and streptococcal pneumonia testing negative, blood cultures with negative growth. Patient has had increase in WBC for last 2 days, vital signs stable, afebrile. No evidence of new infection. Repeat blood and urine cultures from 06/10 remain negative growth to date. Broaden antibiotic coverage to Zosyn yesterday. MRSA nasal screening was negative, have not started vancomycin at this time. If leukocytosis persists may consider infectious diseases consultation. Qualifiers: Pneumonia type: due to unspecified organism Laterality: right Lung location: upper lobe of lung Qualified Code(s): J18.1 - Lobar pneumonia, unspecified organism (4) IVAN (acute kidney injury) Current Visit: Yes Status: Acute Patient did present with elevation in creatinine initially 1.85. Renal function has remained stable since admission. The patient's baseline renal status is unknown. He is 87 years old and may very well be at his baseline in the evaluation of IVAN versus CKD. Nephrology had been consultation, appreciate their recommendations. No plan for HD at this time. Nephrology has signed off, will consider reconsultation if worsening renal status. Continue to avoid nephrotoxic agents if possible. Monitor renal status and electrolytes particularly while patient is undergoing diuresis. (5) Anemia Current Visit: Yes Status: Acute Anemia identified at admission subsequently found to be fecal occult positive. No evidence of active bleeding. Hemodynamics and H/H remained stable. Patient is on heparin drip and aspirin for an NSTEMI without evidence of bleeding. We will continue to monitor H/H. Consider GI consultation pending clinical status and laboratory findings. Qualifiers: Anemia type: unspecified type Qualified Code(s): D64.9 - Anemia, unspecified (6) Elevated troponin Current Visit: Yes Status: Acute Troponins have been down trending. Cardiology is following, appreciate their recommendations. Heparin drip and aspirin ordered. Patient has been on heparin drip for greater than 48 hours, will discuss with cardiology possibility of stopping. We will continue with aspirin daily. We will initiate low-dose short acting beta leroy at present IUA for hemodynamic tolerance. (7) Elevated CK Current Visit: Yes Status: Resolved CK has normalized (8) Hypothyroid Current Visit: Yes Status: Acute Continue patient's home Synthroid Qualifiers: Hypothyroidism type: unspecified Qualified Code(s): E03.9 - Hypothyroidism , unspecified (9) Hypokalemia Current Visit: Yes Status: Acute Has been replaced. No hypokalemia on today's labs. Patient will need continued monitoring subsequent to initiation of Lasix. (10) Leukocytosis Current Visit: Yes Status: Acute Recent increase in WBC to 17. Patient received 6 days of azithromycin and ceftriaxone, is currently on day 2 of Zosyn. No evidence of new infection. Repeat blood and urine cultures with negative growth to date. Of note patient was placed on methylprednisolone on 06/08 and may be playing a role in the recent leukocytosis. If leukocytosis persists or clinical status deteriorates will consider infectious diseases consultation. Qualifiers: Leukocytosis type: unspecified Qualified Code(s): D72.829 - Elevated white blood cell count, unspecified (11) DVT prophylaxis Current Visit: Yes Status: Acute Patient is therapeutic on heparin drip. Subjective Principal diagnosis: Elevated troponin Interval history: Reports poor sleep overnight. Denies worsening shortness of breath or chest pain. Objective PUL Vital signs: Last Vital Signs Temp 97.8 F 06/11/18 04:00 Pulse 98 06/11/18 06:00 Resp 16 06/11/18 07:22 BP 121/69 06/11/18 06:00 Pulse Ox 95 06/11/18 07:22 Results - Laboratory Findings CBC and BMP: 06/11/18 04:03 06/11/18 04:03 ABG ABG pH 7.38 pH Units (7.32-7.45) 06/10/18 05:00 ABG pCO2 55 mmHg (35-45) H 06/10/18 05:00 ABG pO2 75 mmHg (85-104) L 06/10/18 05:00 ABG O2 Saturation 94 % (95-98) L 06/10/18 05:00 PT/INR, D-dimer PT 14.0 Seconds (9.4-12.1) H 06/05/18 04:26 Abnormal lab findings: Abnormal lab results WBC 17.0 K/mcL (4.3-11.1) H 06/11/18 04:03 RBC 3.67 M/mcL (4.19-5.50) L 06/11/18 04:03 Hgb 10.8 g/dL (12.9-16.9) L 06/11/18 04:03 Hct 32.9 % (37.5-50.1) L 06/11/18 04:03 Neutrophils # 15.6 K/mcL (1.6-8.9) H 06/11/18 04:03 Lymphocytes # 0.3 K/mcL (0.6-4.6) L 06/11/18 04:03 Nucleated RBCs/100 WBC 0.1 /100 WBC (0) H 06/11/18 04:03 PT 14.0 Seconds (9.4-12.1) H 06/05/18 04:26 APTT 45.6 Seconds (26.0-36.0) H 06/05/18 04:26 ABG pCO2 55 mmHg (35-45) H 06/10/18 05:00 ABG pO2 75 mmHg (85-104) L 06/10/18 05:00 ABG HCO3 32 mEq/L (21-27) H 06/10/18 05:00 ABG Total CO2 34 mEq/L (20-26) H 06/10/18 05:00 ABG O2 Saturation 94 % (95-98) L 06/10/18 05:00 ABG Base Excess 6 mEq/L (-2 to 3) H 06/10/18 05:00 BUN 62 mg/dL (8-23) H 06/11/18 04:03 Creatinine 1.98 mg/dL (0.70-1.30) H 06/11/18 04:03 Est GFR ( Amer) 39 (> 60) L 06/11/18 04:03 Est GFR (Non-Af Amer) 32 (> 60) L 06/11/18 04:03 BUN/Creatinine Ratio 31 (6-26) H 06/11/18 04:03 Glucose 127 mg/dL (70-105) H 06/11/18 04:03 POC Glucose 122 mg/dL (70-99) H 06/10/18 23:03 Calculated Osmolality 313 (280-300) H 06/11/18 04:03 Venous Ioniz Calcium 1.14 mmol/L (1.15-1.35) L 06/08/18 14:21 Iron 18 mcg/dL (65-175) L 06/08/18 03:36 % Saturation 9 % (20-55) L 06/08/18 03:36 Transferrin 145 mg/dL (203-362) L 06/08/18 03:36 Ferritin 573 ng/mL (20-250) H 06/08/18 03:36 AST 76 Units/L (13-39) H 06/05/18 03:55 Troponin I 6.35 ng/mL (< 0.04) H* 06/08/18 08:12 B-Natriuretic Peptide 351 pg/mL (Less than 100) H 06/10/18 03:20 Albumin 3.4 g/dL (3.5-5.7) L 06/05/18 03:55 Albumin/Globulin Ratio 1.0 (1.1-2.2) L 06/05/18 03:55 HDL Cholesterol 39 mg/dL (40-59) L 06/05/18 03:55 Urine Blood Large (Negative) H 06/10/18 08:00 Ur Leukocyte Esterase Trace (Negative) H 06/10/18 08:00 Urine Microscopic RBC 15-30 per hpf (0-3) H 06/10/18 08:00 Urine Microscopic WBC 5-15 per hpf (0-3) H 06/10/18 08:00 Ur Squamous Epith Cells Moderate per lpf (None-Few) H 06/10/18 08:00 Urine Yeast Few per hpf (None Seen) H 06/10/18 08:00 Ur Culture Indicated? YES (NO) A 06/10/18 08:00 Stool Occult Blood Positive (Negative) A 06/07/18 23:10 - Microbiology Findings Microbiology Findings: Microbiology, Last 48 Hours 06/09/18 08:15 Sputum Culture - Preliminary Sputum 06/10/18 08:21 Blood Culture - Preliminary Peripheral Venipuncture Culture is incubating and being continuously monitored for growth. Final report to follow. 06/10/18 08:15 Blood Culture - Preliminary Peripheral Venipuncture Culture is incubating and being continuously monitored for growth. Final report to follow. - Clinical Findings Intake & Output: Intake & Output 06/10/18 06/10/18 06/11/18 15:59 23:59 07:59 Intake Total 261 / 261 325 / 325 258 / 258 Output Total 875 / 875 355 / 355 200 / 200 Balance -614 / -614 -30 / -30 58 / 58 Weight 115 kg
[2018-06-11] MEDS ORDERED: Melatonin 3 MG TABLET PO PRN ×2 (07:56→18:29)
[2018-06-11] MEDS ORDERED: Furosemide 40 MG/4 ML VIAL IVP ONE ×2 (07:56→18:00)
[2018-06-11] MEDS: FentaNYL (PF) 1,000 MCG in 0.9 % Sodium Chloride 80 ML IVC SCH (08:11)
[2018-06-11] MEDS: Chlorhexidine Rinse 15 ML MOUTHWASH MM SCH (08:16)
[2018-06-11] MEDS: methylPREDNISolone 125 MG/2 ML VIAL IVP SCH (08:16)
[2018-06-11] MEDS: Loratadine 10 MG TABLET PO SCH (08:19)
[2018-06-11] MEDS: Piperacillin/Tazobactam 3.375 GM in 0.9 % Sodium Chloride Mini Bag 100 ML IVPB SCH ×3 (08:19→23:18)
[2018-06-11] MEDS: Aspirin 81 MG TAB.CHEW PO SCH (08:19)
--- NOTE | 2018-06-11 09:10 | Cardiology Progress Note ---
Date of Encounter: 06/11/18 Time of Encounter: 09:08 Assessment and Plan (1) NSTEMI (non-ST elevated myocardial infarction) Current Visit: Yes Status: Acute Troponin reportedly >40 at the [place], 17.24, 14.21, 12.36,8.45, 6.35. Presented to the [facility] with weakness, AMS, shortness of breath per records. No chest pain. Developed respiratory distress/failure 10/6 PM and was intubated and moved to ICU. Extubated 06/10/18. Also with PNA and IVAN upon admission. CK elevated, ? Rhabdo component. TTE this stay: LVEF 55%, mild segmental LV systolic dysfunction, apical septal wall hypokinesis Significant risk factors for CAD; ideally recommend LHC when able. LHC delayed due to IVAN, PNA, and anemia with positive stool occult. Hgb now stable and patient is on heparin gtt. No signs of bleeding. Respirations mildly labored and moist cough noted. We will consider LHC tomorrow if he is able to lay flat and kidney function remains stable. Patient likely near baseline per nephrology. He was given NAC. I discussed LHC R/B/A with patient and need to remove DNRCC-I for 24 hours after procedure. He agrees to proceed. Continue ASA. Ok to d/c heparin gtt as it is over 48 hours of therapy. Allergy to statins. Start low dose bb. (2) Acute respiratory failure Current Visit: Yes Status: Acute Status post respiratory distress due to pulmonary edema. Lasix now given. He is extubated. TTE shows preserved EF. Qualifiers: Qualified Code(s): J96.01 - Acute respiratory failure with hypoxia; J96.02 - Acute respiratory failure with hypercapnia (3) IVAN (acute kidney injury) Current Visit: Yes Status: Acute SCr 1.94 at [place]. baseline unknown. Continue to avoid nephrotoxins. Mgmt per Primary service, Nephrology has been consulted; appreciate recommendations. Discussion w patient/family: The assessment and plan as outlined above was discussed with the patient and/or family members who expressed understanding and agreement. All questions were answered. Thank you for involving us in the care of your patient. Please call with any questions. Subjective Principal diagnosis: Elevated troponin Interval history: Mr. Jane is now extubated. He has slightly labored respirations. He denies chest pain or SOB. Objective Vital Signs, Last 4 Hours Temp Pulse Resp BP Pulse Ox 06/11/18 07:56 97.9 F 06/11/18 07:22 16 95 06/11/18 06:00 98 17 121/69 95 General: Conversant HEENT: Atraumatic, Normocephaly, Mucus Membranes Moist Neck: No JVD, Normal carotid pulses Cardiac: Normal S1 and S2, No Murmur, Other (Sinus tachycardia on telemetry) Lungs: Other (Rhonci and wheezes scattered through out, moist cough noted) Neuro: Alert and responsive, No focal deficits noted Abdomen: Soft, Non-Tender Musculoskeletal: No Chest Wall Tenderness Extremities: No Clubbing, No Cyanosis, No Edema, Normal Pulses Results 06/11/18 04:03 06/11/18 04:03 Lab Results 06/10/18 06/11/18 06/11/18 15:15 04:03 04:03 WBC 17.0 H Hgb 10.8 L Hct 32.9 L Plt Count 275 Sodium 140 142 Potassium 4.0 4.5 Chloride 102 105 Carbon Dioxide 29 29 BUN 54 H 62 H Creatinine 1.80 H 1.98 H Glucose 128 H 127 H Calcium 9.4 9.4 Magnesium 06/11/18 04:03 WBC Hgb Hct Plt Count Sodium Potassium Chloride Carbon Dioxide BUN Creatinine Glucose Calcium Magnesium 2.3 - Imaging and Cardiology Echo: report reviewed - EKG Interpretation EKG results cardiology: personally reviewed Consult Discharge Plan - Plan Referrals: [facility] [Primary Care Provider] -
[2018-06-11] MEDS ORDERED: *HR* Heparin 5,000 UNIT/ML VIAL SQ SCH (14:00)
[2018-06-11] MEDS ORDERED: D5% in Water 1,000 ML IVC PRN (18:29)
[2018-06-11] MEDS ORDERED: Naloxone 0.4 MG/ML INJ IVP PRN (18:29)
[2018-06-11] MEDS ORDERED: *HR* Dextrose 50 % in Water (Syg) 50 ML SYRINGE IVP PRN (18:29)
[2018-06-11] MEDS ORDERED: Dextrose Gel 15 GM/37.5 ML TUBE PO PRN ×2 (18:29)
[2018-06-11 18:49] LABS: Calcium 9.2 mg/dL (8.6-10.3); Potassium 4.3 mEq/L (3.5-5.1)
[2018-06-11] MEDS: *HR* Heparin 5,000 UNIT/ML VIAL SQ SCH (20:18)
[2018-06-11] MEDS ORDERED: predniSONE 20 MG TABLET PO SCH (21:00)
[2018-06-12] MEDS: Ipratropium/Albuterol Neb 3 ML IH SCH ×7 (00:03→23:53)
[2018-06-12 02:40] LABS: Alpha 2 Globulin (PEP) 1.04 g/dL (0.48-1.05); Beta Globulin (PEP) 0.96 g/dL (0.48-1.10)
[2018-06-12 03:32] LABS: Hematocrit 32.1 % (37.5-50.1); Hemoglobin 10.7 g/dL (12.9-16.9); Mean Corpuscular HGB Conc 33.3 g/dL (31.6-35.5); Mean Corpuscular Hemoglobin 29.6 pg (28.0-33.3); Mean Corpuscular Volume 88.9 fL (83.0-100.0); Mean Platelet Volume 10.5 fL (9.4-12.4); Nucleated Red Blood Cells 0.2 /100 WBC (0); Platelet Count 316 K/mcL (140-400); Red Blood Count 3.61 M/mcL (4.19-5.50); Red Cell Distribution Width 14.6 % (11.5-14.5)
[2018-06-12 03:56] LABS: Large Platelets Present (Not Present); Monocytes # 1.3 K/mcL (0.0-1.3); Neutrophils # 10.7 K/mcL (1.6-8.9); Platelet Estimate Normal (Normal)
[2018-06-12 03:57] LABS: Calcium 9.1 mg/dL (8.6-10.3); Potassium 3.9 mEq/L (3.5-5.1)
[2018-06-12] MEDS: *HR* Heparin 5,000 UNIT/ML VIAL SQ SCH ×3 (06:13→20:15)
[2018-06-12] MEDS: Insulin LISPRO 300 UNITS/3 ML VIAL SQ SCH ×4 (06:15→23:45)
[2018-06-12 07:31] LABS: IFE Reflexed IFE Done; Immunoglobulin A 245 mg/dL (68-408); Immunoglobulin G 1010 mg/dL (768-1632); Immunoglobulin M 24 mg/dL (35-263)
[2018-06-12] MEDS ORDERED: Furosemide 40 MG/4 ML VIAL IVP SCH ×2 (08:00)
[2018-06-12] MEDS: Loratadine 10 MG TABLET PO SCH (08:26)
[2018-06-12] MEDS: Piperacillin/Tazobactam 3.375 GM in 0.9 % Sodium Chloride Mini Bag 100 ML IVPB SCH ×3 (08:27→23:48)
[2018-06-12] MEDS: Aspirin 81 MG TAB.CHEW PO SCH (08:27)
[2018-06-12] MEDS ORDERED: predniSONE 20 MG TABLET PO SCH ×2 (09:00)
[2018-06-12] MEDS: predniSONE 20 MG TABLET PO SCH (09:38)
--- NOTE | 2018-06-12 11:00 | Cardiology Progress Note ---
Date of Encounter: 06/12/18 Time of Encounter: 10:55 Assessment and Plan (1) NSTEMI (non-ST elevated myocardial infarction) Current Visit: Yes Status: Acute Troponin reportedly >40 at the [place], 17.24, 14.21, 12.36,8.45, 6.35. Presented to the [facility] with weakness, AMS, shortness of breath per records. No chest pain. Developed respiratory distress/failure 10/6 PM and was intubated and moved to ICU. Extubated 06/10/18. Also with PNA and IVAN upon admission. CK elevated, possible Rhabdo component. TTE this stay: LVEF 55%, mild segmental LV systolic dysfunction, apical septal wall hypokinesis Significant risk factors for CAD. LHC was recommended when able. LHC delayed due to IVAN, PNA, patient initially refusing, and anemia with positive stool occult. Hgb now stable, kitty after multiple days IV heparin. No signs of bleeding. He was diuresed 4 L in the last 24 hours. His breathing has improved. I discussed LHC R/B/A with patient and need to remove DNRCC-I for 24 hours after procedure. He agrees to proceed. Unfortunately his creatinine increased to 2.10-2.08. I discussed with Dr. Pérez who agrees that we will do left heart catheter when kidney function is back to baseline. Recommend holding lasix secondary to over diuresis. Nothing by mouth for possible LHC in a.m. Continue ASA and bb. Allergy to statins. Start low dose bb. (2) IVAN (acute kidney injury) Current Visit: Yes Status: Acute SCr 1.94 at [facility]. baseline unknown. Scr 2.10- 2.08. Recommend ordering lab work from PCP to see what his baseline is. Continue to avoid nephrotoxins. Mgmt per Primary service, Nephrology has been consulted; appreciate recommendations. Discussion w patient/family: The assessment and plan as outlined above was discussed with the patient and/or family members who expressed understanding and agreement. All questions were answered. Thank you for involving us in the care of your patient. Please call with any questions. Subjective Principal diagnosis: Elevated troponin Interval history: Mr. Jane with no complaints. He denies chest pain or shortness of breath. Objective Vital Signs, Last 4 Hours Temp Pulse Resp BP Pulse Ox 06/12/18 10:00 78 20 100/62 94 06/12/18 08:34 83 18 124/78 93 06/12/18 07:39 16 94 06/12/18 07:37 97.4 F L 06/12/18 07:11 87 General: Conversant, No Apparent Distress HEENT: Atraumatic, Normocephaly, Mucus Membranes Moist Neck: No JVD, Normal carotid pulses Cardiac: Reg Rate and Rhythm, Normal S1 and S2, No Murmur, Other (Mildly diminished bases) Lungs: Normal Breath Sounds, No Wheeze, Rales, Rhonchi Neuro: Alert and responsive, No focal deficits noted Abdomen: Soft, Non-Tender Skin: No rashes noted on visualized skin Musculoskeletal: No Chest Wall Tenderness Extremities: No Clubbing, No Cyanosis, Normal Pulses, Other (Trace ankle edema.) Results 06/12/18 03:15 06/12/18 03:15 Lab Results 06/11/18 06/12/18 06/12/18 14:00 03:15 03:15 WBC 13.0 H Hgb 10.7 L Hct 32.1 L Plt Count 316 Sodium 143 144 Potassium 4.3 3.9 Chloride 105 103 Carbon Dioxide 30 H 30 H BUN 64 H 62 H Creatinine 2.10 H 2.08 H Glucose 154 H 106 H Calcium 9.2 9.1 Magnesium 06/12/18 03:15 WBC Hgb Hct Plt Count Sodium Potassium Chloride Carbon Dioxide BUN Creatinine Glucose Calcium Magnesium 2.2 - Imaging and Cardiology Echo: report reviewed - EKG Interpretation EKG results cardiology: personally reviewed Consult Discharge Plan - Plan Referrals: [facility] [Primary Care Provider] -
--- NOTE | 2018-06-12 13:13 | Internal Med Progress Note ---
Hospitalist Progress Note - Encounter Date of Encounter: 06/12/18 Time of Encounter: 09:00 - Subjective Interval History: Pt has minimal SOB, mild cough. No fever. Denies chest pain/nausea. - Exam Vitals: Temp Pulse Resp BP Pulse Ox 97.4 F L 77 18 124/75 94 06/12/18 12:09 06/12/18 12:00 06/12/18 12:00 06/12/18 12:00 06/12/18 12:00 Exam: Gen: In no acute distress. conversant Respiratory exam: Good air entry. Has wheezing present b/l Cardiovascular exam: RRR, +S1, +S2. no murmur, gallop, rubs. GI/Abdominal exam: Non-tender, Non-distended, normal bowel sounds, soft, no peritoneal signs. Extremities exam: full ROM, no pedal edema, warm, pulses palpable and symmetrical in both Upper and lower extremities. no calf tenderness, cyanotic Neurological exam: CN II-XII intact, AO X3, no focal deficits. Skin exam: No skin rash, ulcer, purpura or ecchymosis. - Assessment and Plan (1) NSTEMI (non-ST elevated myocardial infarction) Current Visit: Yes Status: Acute Assessment and Plan: Pt denies chest pain now, cont ASA and BB per cardio. - Plan for C but hold due to renal function. (2) IVAN (acute kidney injury) Current Visit: Yes Status: Acute Assessment and Plan: Slight worsen renal function. Hold lasix now. Avoid nephrotoxic meds. (3) Pneumonia Current Visit: Yes Status: Acute Assessment and Plan: CTA shows PNA on RUL and RLL. On zosyn day 7. No fever. WBC trend down. Blood/ sputum and urine Culture no growth so far. - Cont abx. - Cont duoneb and stertoid for wheezing. - Cont O2 suppotive treatment. - Need f/u with imaging to see resolution. (4) DVT prophylaxis Current Visit: Yes Status: Acute Assessment and Plan: Heparin SC - Time Spent with Patient Total time spent is greater than 50% in coordination of care (as documented) at patient's floor/unit and/or counseling patient: 30 min 25 - 35 minutes Plan of Care Discussed with: patient Internal Medicine: Result - Labs CBC & Chem 7: 06/12/18 03:15 06/12/18 03:15 Labs: Short CBC 06/12/18 Range/Units 03:15 WBC 13.0 H (4.3-11.1) K/mcL Hgb 10.7 L (12.9-16.9) g/dL Hct 32.1 L (37.5-50.1) % Plt Count 316 (140-400) K/mcL Neutrophils # 10.7 H (1.6-8.9) K/mcL BMP 06/11/18 06/12/18 14:00 03:15 Sodium 143 144 Potassium 4.3 3.9 Chloride 105 103 Carbon Dioxide 30 H 30 H BUN 64 H 62 H Creatinine 2.10 H 2.08 H Glucose 154 H 106 H Calcium 9.2 9.1 - ABG Interpretation ABG results: ABG ABG pH 7.38 pH Units (7.32-7.45) 06/10/18 05:00 ABG pCO2 55 mmHg (35-45) H 06/10/18 05:00 ABG pO2 75 mmHg (85-104) L 06/10/18 05:00 ABG O2 Saturation 94 % (95-98) L 06/10/18 05:00 PT/INR, D-dimer PT 14.0 Seconds (9.4-12.1) H 06/05/18 04:26 Consult Discharge Plan - Plan [facility]errals: [facility] [Primary Care Provider] - (3) Pneumonia Qualifiers: Pneumonia type: due to unspecified organism Laterality: right Lung location : upper lobe of lung Qualified Code(s): J18.1 - Lobar pneumonia, unspecified organism
[2018-06-12] MEDS ORDERED: 0.9 % Sodium Chloride 1,000 ML IVC SCH (18:00)
[2018-06-13] MEDS: Ipratropium/Albuterol Neb 3 ML IH SCH ×5 (03:53→20:22)
[2018-06-13 03:58] LABS: Potassium 3.9 mEq/L (3.5-5.1)
[2018-06-13 04:03] LABS: Hematocrit 31.2 % (37.5-50.1); Hemoglobin 10.2 g/dL (12.9-16.9); Mean Corpuscular HGB Conc 32.7 g/dL (31.6-35.5); Mean Corpuscular Hemoglobin 29.8 pg (28.0-33.3); Mean Corpuscular Volume 91.2 fL (83.0-100.0); Mean Platelet Volume 10.3 fL (9.4-12.4); Nucleated Red Blood Cells 0.2 /100 WBC (0); Platelet Count 296 K/mcL (140-400); Red Blood Count 3.42 M/mcL (4.19-5.50); Red Cell Distribution Width 14.8 % (11.5-14.5)
[2018-06-13] MEDS: *HR* Heparin 5,000 UNIT/ML VIAL SQ SCH ×3 (05:18→21:02)
[2018-06-13] MEDS: Insulin LISPRO 300 UNITS/3 ML VIAL SQ SCH ×3 (05:19→18:25)
[2018-06-13 06:02] LABS: Lymphocytes # 1.5 K/mcL (0.6-4.6); Monocytes # 0.6 K/mcL (0.0-1.3); Neutrophils # 8.4 K/mcL (1.6-8.9); Platelet Estimate Normal (Normal)
[2018-06-13] MEDS: Piperacillin/Tazobactam 3.375 GM in 0.9 % Sodium Chloride Mini Bag 100 ML IVPB SCH ×3 (08:51→23:25)
[2018-06-13] MEDS: Aspirin 81 MG TAB.CHEW PO SCH (08:52)
[2018-06-13] MEDS: Cholecalciferol (D-3) 1,000 UNIT TABLET PO SCH (08:52)
[2018-06-13] MEDS: predniSONE 20 MG TABLET PO SCH (08:52)
[2018-06-13] MEDS: Loratadine 10 MG TABLET PO SCH (08:53)
--- NOTE | 2018-06-13 13:23 | Internal Med Progress Note ---
Hospitalist Progress Note - Encounter Date of Encounter: 06/13/18 Time of Encounter: 09:00 - Subjective Interval History: Pt has minimal SOB, mild cough. No fever. Denies chest pain/nausea. - Exam Vitals: Temp Pulse Resp BP Pulse Ox 98.0 F 89 20 127/70 92 06/13/18 08:00 06/13/18 08:30 06/13/18 11:02 06/13/18 08:00 06/13/18 11:02 Exam: Gen: In no acute distress. conversant Respiratory exam: Good air entry. No wheeze today Cardiovascular exam: RRR, +S1, +S2. no murmur, gallop, rubs. GI/Abdominal exam: Non-tender, Non-distended, normal bowel sounds, soft, no peritoneal signs. Extremities exam: full ROM, no pedal edema, warm, pulses palpable and symmetrical in both Upper and lower extremities. no calf tenderness, cyanotic Neurological exam: CN II-XII intact, AO X3, no focal deficits. Skin exam: No skin rash, ulcer, purpura or ecchymosis. - Assessment and Plan (1) NSTEMI (non-ST elevated myocardial infarction) Current Visit: Yes Status: Acute Assessment and Plan: Pt denies chest pain now, cont ASA and BB per cardio. - Plan for [facility] but hold due to renal function. (2) IVAN (acute kidney injury) Current Visit: Yes Status: Acute Assessment and Plan: Slightly improved today. Cont to hold lasix . Avoid nephrotoxic meds. (3) Pneumonia Current Visit: Yes Status: Acute Assessment and Plan: CTA shows PNA on RUL and RLL. On zosyn day 8. No fever. WBC trend down. Blood/ sputum and urine Culture no growth so far. - Cont abx to finish 9 day course. - Cont duoneb and stertoid for wheezing. Taper down steroid. - Cont O2 suppotive treatment. - Need f/u with imaging to see resolution per radiology recommendation. (4) DVT prophylaxis Current Visit: Yes Status: Acute Assessment and Plan: Heparin SC - Time Spent with Patient Total time spent is greater than 50% in coordination of care (as documented) at patient's floor/unit and/or counseling patient: 25 - 35 minutes Plan of Care Discussed with: patient Internal Medicine: Result - Labs CBC & Chem 7: 06/13/18 03:30 06/13/18 03:30 Labs: Short CBC 06/13/18 Range/Units 03:30 WBC 10.5 (4.3-11.1) K/mcL Hgb 10.2 L (12.9-16.9) g/dL Hct 31.2 L (37.5-50.1) % Plt Count 296 (140-400) K/mcL Neutrophils # 8.4 (1.6-8.9) K/mcL BMP 06/13/18 03:30 Sodium 145 Potassium 3.9 Chloride 106 Carbon Dioxide 33 H BUN 50 H Creatinine 1.69 H Glucose 102 Calcium 9.0 - ABG Interpretation ABG results: ABG ABG pH 7.38 pH Units (7.32-7.45) 06/10/18 05:00 ABG pCO2 55 mmHg (35-45) H 06/10/18 05:00 ABG pO2 75 mmHg (85-104) L 06/10/18 05:00 ABG O2 Saturation 94 % (95-98) L 06/10/18 05:00 PT/INR, D-dimer PT 14.0 Seconds (9.4-12.1) H 06/05/18 04:26 Consult Discharge Plan - Plan [facility]errals: [facility] [Primary Care Provider] - (3) Pneumonia Qualifiers: Pneumonia type: due to unspecified organism Laterality: right Lung location : upper lobe of lung Qualified Code(s): J18.1 - Lobar pneumonia, unspecified organism
[2018-06-13] MEDS ORDERED: Nitroglycerin 1,000 MCG/10 ML VIAL IV ONE (16:15)
[2018-06-13] MEDS ORDERED: ISOVUE-370 200 ML INFUS..BTL IV ONE (16:15)
[2018-06-13] MEDS ORDERED: Heparin 1,000 UNITS/500 mL 500 ML ONE (16:15)
[2018-06-13] MEDS ORDERED: 0.9 % Sodium Chloride 1,000 ML ONE ×2 (16:15→16:49)
[2018-06-13] MEDS ORDERED: *HR* Heparin 10,000 UNIT/10 ML VIAL ONE (16:15)
--- NOTE | 2018-06-13 16:33 | Pre-Sedation Evaluation ---
Pre-sedation evaluation - Pre-sedation checklist Date of procedure: 06/08/18 Procedure: LHC Recent Vitals: Last Vital Signs Temp 98.0 F 06/13/18 08:00 Pulse 75 06/13/18 13:20 Resp 20 06/13/18 16:07 BP 112/70 06/13/18 13:20 Pulse Ox 94 06/13/18 16:07 ASA Classification *see protocol: CLASS II-Mild systemic disease Cardiac Registry (Cardio Only) - Functional Capacity Functional Capacity: >=4 METS with symptoms - Clincal Frailty Scale Clinical Frailty Scale: Vulnerable
[2018-06-13] MEDS ORDERED: *HR* Midazolam HCl 2 MG/2 ML VIAL ONE (16:49)
[2018-06-13] MEDS ORDERED: *HR* FentaNYL (PF) 100 MCG/2 ML VIAL ONE (16:49)
[2018-06-13] MEDS: Lactobacillus 1 EACH CAP.SPRINK PO SCH (18:25)
[2018-06-14] MEDS: Ipratropium/Albuterol Neb 3 ML IH SCH ×7 (00:13→23:49)
[2018-06-14 04:26] LABS: Hematocrit 30.1 % (37.5-50.1); Hemoglobin 9.8 g/dL (12.9-16.9); Lymphocytes # 0.8 K/mcL (0.6-4.6); Mean Corpuscular HGB Conc 32.6 g/dL (31.6-35.5); Mean Platelet Volume 10.2 fL (9.4-12.4); Platelet Count 277 K/mcL (140-400); Red Blood Count 3.27 M/mcL (4.19-5.50); Red Cell Distribution Width 14.9 % (11.5-14.5)
[2018-06-14 04:45] LABS: Calcium 8.8 mg/dL (8.6-10.3); Potassium 3.7 mEq/L (3.5-5.1)
[2018-06-14 05:24] LABS: Monocytes # 0.5 K/mcL (0.0-1.3); Neutrophils # 7.1 K/mcL (1.6-8.9); Platelet Estimate Normal (Normal); Reactive Lymphocytes Present (Not Present)
[2018-06-14] MEDS: Insulin LISPRO 300 UNITS/3 ML VIAL SQ SCH ×5 (05:54→19:59)
[2018-06-14] MEDS: *HR* Heparin 5,000 UNIT/ML VIAL SQ SCH ×3 (05:55→21:43)
[2018-06-14] MEDS: Piperacillin/Tazobactam 3.375 GM in 0.9 % Sodium Chloride Mini Bag 100 ML IVPB SCH ×2 (09:29→17:18)
[2018-06-14] MEDS: Lactobacillus 1 EACH CAP.SPRINK PO SCH (09:30)
[2018-06-14] MEDS: Aspirin 81 MG TAB.CHEW PO SCH (09:30)
[2018-06-14] MEDS: Loratadine 10 MG TABLET PO SCH (09:30)
[2018-06-14] MEDS: Cholecalciferol (D-3) 1,000 UNIT TABLET PO SCH (09:30)
[2018-06-14] MEDS: predniSONE 20 MG TABLET PO SCH (09:30)
--- NOTE | 2018-06-14 10:44 | Cardiothoracic Consult Note ---
Date of Encounter: 06/14/18 Time of Encounter: 10:41 - History of Present Illness Consult date: 06/14/18 History of present illness: Mr. Jane is a 87 year old male Past Med Surg Social Fam HX - Past Medical History Medical history: arthritis, COPD, GERD, hypertension, thyroid disease Additional medical history: Aneurysm Psychiatric history: no psych history - Past Surgical History Surgical History: herniorrhaphy, vascular surgery, other (AAA repair) Additional surgical history: hernia repair. eye implants - Social History Smoking Status: Former smoker Smokeless Tobacco Status: No Alcohol use: none Drug use: none - Family History Mother History Unknown: Yes Living Status: Father History Unknown: Yes Living Status: Medications and Allergies Cetirizine HCl [All Day Allergy] 10 mg PO DAILY 06/04/18 [History] Cholecalciferol (D-3) [Vitamin D] 2,000 unit PO DAILY 06/04/18 [History] Levothyroxine [Synthroid] 125 mcg PO 0630 06/04/18 [History] Losartan [Cozaar] 25 mg PO DAILY 06/04/18 [History] Omeprazole [PriLOSEC] 20 mg PO DAILY 06/04/18 [History] Triamterene/Hydrochlorothiazid [Dyazide 37.5-25 Capsule] 1 cap PO DAILY [History] 3 Allergy/AdvReac Type Severity Reaction Status Date / Time atorvastatin Allergy See Verified 06/04/18 16:53 Comments simvastatin Allergy See Verified 06/04/18 16:53 Comments All Systems Review: The remainder of the systems were reviewed and are negative Physical Examination Vital Signs, Last 4 Hours Temp Pulse Resp BP Pulse Ox 06/14/18 08:13 98.4 F 67 18 121/71 99 Results 06/14/18 04:00 06/14/18 04:00 Lab Results, Last 24 hours 06/14/18 06/14/18 06/14/18 04:00 04:00 04:00 WBC 8.4 Hgb 9.8 L Hct 30.1 L Plt Count 277 Sodium 144 Potassium 3.7 Chloride 107 Carbon Dioxide 32 H BUN 39 H Creatinine 1.51 H Glucose 90 Calcium 8.8 Magnesium 2.1 Consult Discharge Plan - Plan [facility]errals: [facility] [Primary Care Provider] -
--- NOTE | 2018-06-14 10:57 | Cardiothoracic Consult Note ---
Date of Encounter: 06/14/18 Time of Encounter: 10:52 Assessment and Plan (1) Elevated troponin Current Visit: Yes Status: Acute The assessment and plan as outlined above was discussed with the patient and/or family members who expressed understanding and agreement. All questions were answered. (2) NSTEMI (non-ST elevated myocardial infarction) Current Visit: Yes Status: Acute The assessment and plan as outlined above was discussed with the patient and/or family members who expressed understanding and agreement. All questions were answered. (3) IVAN (acute kidney injury) Current Visit: Yes Status: Acute The assessment and plan as outlined above was discussed with the patient and/or family members who expressed understanding and agreement. All questions were answered. (4) Anemia Current Visit: Yes Status: Acute The assessment and plan as outlined above was discussed with the patient and/or family members who expressed understanding and agreement. All questions were answered. Qualifiers: Anemia type: unspecified type Qualified Code(s): D64.9 - Anemia, unspecified - History of Present Illness History of present illness: Patient seen and examined in consultation. In summary, Mr. Jane is a 87 year old male who [facility] for a reported elevated troponin of greater than 40. After his presentation here his troponin was notably 17 and he was admitted for a non-STEMI. He was evaluated for suspected pneumonia and cardiology was consult. He had a transthoracic echo which demonstrated an EF greater than 55% by report with notable septal and apical hypo-akinesis. On 06 08 2018 he reportedly developed flash pulmonary edema requiring intubation. He was treated in the intensive care unit and transferred to the floor yesterday. He underwent a cardiac catheterization yesterday which reportedly demonstrated significant three-vessel coronary artery disease including total occlusion of the LAD with [id number] collaterals, high-grade lesion of the circumflex and 65% lesion of his right coronary artery. Cardiothoracic surgery was asked to see him in consultation for evaluation regarding possible surgical revascularization. Notably, the patient is currently on steroids. He reportedly did not receive any precatheterization Plavix for anticoagulation. At present he is pain-free but still complains of some lethargy and shortness breath. Per nursing reports he has had no acute events overnight. The patient still has a Ferrer in place which I have requested be removed. We will stop his prednisone at this time. His creatinine was elevated but is trending downward. I have discussed the patient with Dr. Isaac Quiroga and will make tentative plans for CABG pending his clinical course on Saturday of this coming week. I have explained this to the patient will be seen by Dr. Isaac Quiroga on Saturday. Past Med Surg Social Fam HX - Past Medical History Medical history: arthritis, COPD, GERD, hypertension, thyroid disease Additional medical history: Aneurysm Psychiatric history: no psych history - Past Surgical History Surgical History: herniorrhaphy, vascular surgery, other (AAA repair) Additional surgical history: hernia repair. eye implants - Social History Smoking Status: Former smoker Smokeless Tobacco Status: No Alcohol use: none Drug use: none - Family History Mother History Unknown: Yes Living Status: Father History Unknown: Yes Living Status: Medications and Allergies Cetirizine HCl [All Day Allergy] 10 mg PO DAILY 06/04/18 [History] Cholecalciferol (D-3) [Vitamin D] 2,000 unit PO DAILY 06/04/18 [History] Levothyroxine [Synthroid] 125 mcg PO 0630 06/04/18 [History] Losartan [Cozaar] 25 mg PO DAILY 06/04/18 [History] Omeprazole [PriLOSEC] 20 mg PO DAILY 06/04/18 [History] Triamterene/Hydrochlorothiazid [Dyazide 37.5-25 Capsule] 1 cap PO DAILY [History] 3 Allergy/AdvReac Type Severity Reaction Status Date / Time atorvastatin Allergy See Verified 06/04/18 16:53 Comments simvastatin Allergy See Verified 06/04/18 16:53 Comments ROS unobtainable: other (Complete review of systems obtained. Notable for history of hypertension, and was stated in history of present illness) All Systems Review: The remainder of the systems were reviewed and are negative Physical Examination Vital Signs, Last 4 Hours Temp Pulse Resp BP Pulse Ox 06/14/18 08:13 98.4 F 67 18 121/71 99 General: Other (Well-developed moderately obese white male, lying in bed friendly and cooperative) Genitourinary: Maintain ferrer catheter (Ferrer in place have requested this to be removed) Extremities: Other (Right groin catheter site dressing intact, clean and dry without evidence of swelling or erythema or ecchymosis) Results 06/14/18 04:00 06/14/18 04:00 Lab Results, Last 24 hours 06/14/18 06/14/18 06/14/18 04:00 04:00 04:00 WBC 8.4 Hgb 9.8 L Hct 30.1 L Plt Count 277 Sodium 144 Potassium 3.7 Chloride 107 Carbon Dioxide 32 H BUN 39 H Creatinine 1.51 H Glucose 90 Calcium 8.8 Magnesium 2.1 Consult Discharge Plan - Plan [facility]errals: [facility] [Primary Care Provider] -
--- NOTE | 2018-06-14 13:15 | Internal Med Progress Note ---
Hospitalist Progress Note - Encounter Date of Encounter: 06/14/18 Time of Encounter: 09:00 - Subjective Interval History: Pt has minimal SOB. No cough. No fever. Denies chest pain/nausea. - Exam Vitals: Temp Pulse Resp BP Pulse Ox 98.5 F 71 18 123/71 100 06/14/18 11:18 06/14/18 11:30 06/14/18 11:18 06/14/18 11:18 06/14/18 11:18 Exam: Gen: In no acute distress. conversant Respiratory exam: Good air entry. No wheeze Cardiovascular exam: RRR, +S1, +S2. no murmur, gallop, rubs. GI/Abdominal exam: Non-tender, Non-distended, normal bowel sounds, soft, no peritoneal signs. Extremities exam: full ROM, no pedal edema, warm, pulses palpable and symmetrical in both Upper and lower extremities. no calf tenderness, cyanotic Neurological exam: CN II-XII intact, AO X3, no focal deficits. Skin exam: No skin rash, ulcer, purpura or ecchymosis. - Assessment and Plan (1) NSTEMI (non-ST elevated myocardial infarction) Current Visit: Yes Status: Acute Assessment and Plan: Pt denies chest pain now, cont ASA and BB per cardio. - LHC done, shows multiple vessel disease, cardiothoracic surgeon was consulted for possible CABG - Cont close monitoring. (2) IVAN (acute kidney injury) Current Visit: Yes Status: Acute Assessment and Plan: Slightly improved today. Cont to hold lasix . Avoid nephrotoxic meds. No previous record available so don't know his Cr baseline. (3) Pneumonia Current Visit: Yes Status: Acute Assessment and Plan: CTA shows PNA on RUL and RLL. On zosyn day 9. No fever. WBC trend down. Blood/ sputum and urine Culture no growth so far. - Will d/c zosyn as pt has finished 9 day course, no cough, SOB at baseline. - Cont duoneb for wheezing. D/C steroid per cardiothoracic surgeon for planned surgery.. - Cont O2 suppotive treatment. - After discharge, need f/u with imaging to see resolution per radiology recommendation. (4) DVT prophylaxis Current Visit: Yes Status: Acute Assessment and Plan: Heparin SC DVT Prophylaxis: Heparin SC - Time Spent with Patient Total time spent is greater than 50% in coordination of care (as documented) at patient's floor/unit and/or counseling patient: 25 - 35 minutes Plan of Care Discussed with: patient Internal Medicine: Result - Labs CBC & Chem 7: 06/14/18 04:00 06/14/18 04:00 Labs: Short CBC 06/14/18 Range/Units 04:00 WBC 8.4 (4.3-11.1) K/mcL Hgb 9.8 L (12.9-16.9) g/dL Hct 30.1 L (37.5-50.1) % Plt Count 277 (140-400) K/mcL Neutrophils # 7.1 (1.6-8.9) K/mcL BMP 06/14/18 04:00 Sodium 144 Potassium 3.7 Chloride 107 Carbon Dioxide 32 H BUN 39 H Creatinine 1.51 H Glucose 90 Calcium 8.8 - ABG Interpretation ABG results: ABG ABG pH 7.38 pH Units (7.32-7.45) 06/10/18 05:00 ABG pCO2 55 mmHg (35-45) H 06/10/18 05:00 ABG pO2 75 mmHg (85-104) L 06/10/18 05:00 ABG O2 Saturation 94 % (95-98) L 06/10/18 05:00 PT/INR, D-dimer PT 14.0 Seconds (9.4-12.1) H 06/05/18 04:26 Consult Discharge Plan - Plan [facility]errals: [facility] [Primary Care Provider] - (3) Pneumonia Qualifiers: Pneumonia type: due to unspecified organism Laterality: right Lung location : upper lobe of lung Qualified Code(s): J18.1 - Lobar pneumonia, unspecified organism
--- NOTE | 2018-06-14 13:30 | Cardiology Progress Note ---
Date of Encounter: 06/14/18 Time of Encounter: 13:27 Assessment and Plan (1) NSTEMI (non-ST elevated myocardial infarction) Current Visit: Yes Status: Acute Severe multivessel CAD. Preserved LVEF. CT surgery consultation reviewed, plan for CABG Saturday. Allergy to statins noted. Recommend continue aspirin, metoprolol therapy. Continue to monitor and optimize from our standpoint. Discussion w patient/family: The assessment and plan as outlined above was discussed with the patient and/or family members who expressed understanding and agreement. All questions were answered. Thank you for involving us in the care of your patient. Please call with any questions. Subjective Principal diagnosis: Elevated troponin Interval history: Patient seen and examined. Patient received left heart catheterization yesterday. Multivessel CAD reported, consideration for CABG recommended. Patient has been seen by CT surgery. Their plan is for possible CABG Saturday. Objective Vital Signs, Last 4 Hours Temp Pulse Resp BP Pulse Ox 06/14/18 11:30 71 06/14/18 11:18 98.5 F 70 18 123/71 100 General: Conversant, No Apparent Distress HEENT: Atraumatic, Normocephaly, Mucus Membranes Moist Neck: No JVD, Normal carotid pulses Cardiac: Reg Rate and Rhythm, Normal S1 and S2, No Murmur Lungs: Normal Breath Sounds, No Wheeze, Rales, Rhonchi Neuro: Alert and responsive, No focal deficits noted Abdomen: Soft, Non-Tender Skin: No rashes noted on visualized skin Musculoskeletal: No Chest Wall Tenderness Extremities: No Clubbing, No Cyanosis, Normal Pulses, Other (Very mild lower extremity edema) Results 06/14/18 04:00 06/14/18 04:00 Lab Results 06/14/18 06/14/18 06/14/18 04:00 04:00 04:00 WBC 8.4 Hgb 9.8 L Hct 30.1 L Plt Count 277 Sodium 144 Potassium 3.7 Chloride 107 Carbon Dioxide 32 H BUN 39 H Creatinine 1.51 H Glucose 90 Calcium 8.8 Magnesium 2.1 - Imaging and Cardiology Echo: report reviewed Cardiac cath: report reviewed Consult Discharge Plan - Plan [facility]errals: [facility] [Primary Care Provider] -
[2018-06-14] MEDS: Metoprolol XL (24 HR) Succ 25 MG TAB.ER.24H PO SCH (17:17)
[2018-06-15 04:25] LABS: Basophils % 0.3 %; Eosinophils # 0.1 K/mcL (0.0-0.6); Hematocrit 29.6 % (37.5-50.1); Hemoglobin 9.7 g/dL (12.9-16.9); Immature Granulocytes % 4.3 % (0-4); Lymphocytes # 0.6 K/mcL (0.6-4.6); Lymphocytes % 6.6 %; Mean Corpuscular HGB Conc 32.8 g/dL (31.6-35.5); Mean Corpuscular Hemoglobin 29.9 pg (28.0-33.3); Mean Corpuscular Volume 91.4 fL (83.0-100.0); Monocytes # 0.6 K/mcL (0.0-1.3); Monocytes % 6.7 %; Neutrophils # 7.7 K/mcL (1.6-8.9); Platelet Count 252 K/mcL (140-400); Red Blood Count 3.24 M/mcL (4.19-5.50); Red Cell Distribution Width 14.8 % (11.5-14.5); Segmented Neutrophils % 81.1 %
[2018-06-15 04:40] LABS: BUN/Creatinine Ratio 25 (6-26); Blood Urea Nitrogen 34 mg/dL (8-23); Calcium 8.7 mg/dL (8.6-10.3); Carbon Dioxide 31 mEq/L (23-29); Chloride 109 mEq/L (98-107); Glucose 92 mg/dL (70-105); Osmolality,Calculated 307 (280-300); Potassium 3.7 mEq/L (3.5-5.1); Sodium 145 mEq/L (136-145); eGFR For Non-African Americans 50 (> 60)
[2018-06-15] MEDS: Ipratropium/Albuterol Neb 3 ML IH SCH ×5 (04:43→20:20)
[2018-06-15] MEDS: *HR* Heparin 5,000 UNIT/ML VIAL SQ SCH ×3 (05:53→21:20)
[2018-06-15] MEDS: Loratadine 10 MG TABLET PO SCH (08:36)
[2018-06-15] MEDS: Insulin LISPRO 300 UNITS/3 ML VIAL SQ SCH ×4 (08:36→20:05)
[2018-06-15] MEDS: Cholecalciferol (D-3) 1,000 UNIT TABLET PO SCH (08:36)
[2018-06-15] MEDS: Lactobacillus 1 EACH CAP.SPRINK PO SCH (08:36)
[2018-06-15] MEDS: Aspirin 81 MG TAB.CHEW PO SCH (08:36)
--- NOTE | 2018-06-15 11:31 | Internal Med Progress Note ---
Hospitalist Progress Note - Encounter Date of Encounter: 06/15/18 Time of Encounter: 10:00 - Subjective Interval History: Pt laying on bed comfortably. Denies cough, SOB. No fever. Denies chest pain/ nausea. - Exam Vitals: Temp Pulse Resp BP Pulse Ox 98.0 F 85 18 127/73 94 06/15/18 08:34 06/15/18 08:34 06/15/18 08:34 06/15/18 08:34 06/15/18 08:30 Exam: Gen: In no acute distress. conversant Respiratory exam: Good air entry. No wheeze Cardiovascular exam: RRR, +S1, +S2. no murmur, gallop, rubs. GI/Abdominal exam: Non-tender, Non-distended, normal bowel sounds, soft, no peritoneal signs. Extremities exam: full ROM, no pedal edema, warm, pulses palpable and symmetrical in both Upper and lower extremities. no calf tenderness, cyanotic Neurological exam: CN II-XII intact, AO X3, no focal deficits. Skin exam: No skin rash, ulcer, purpura or ecchymosis. - Assessment and Plan (1) NSTEMI (non-ST elevated myocardial infarction) Current Visit: Yes Status: Acute Assessment and Plan: Pt denies chest pain now, cont ASA and BB per cardio. - LHC done, shows multiple vessel disease, cardiothoracic surgeon was consulted for CABG - Cont close monitoring. (2) IVAN (acute kidney injury) Current Visit: Yes Status: Acute Assessment and Plan: Slightly improved today. Cont to hold lasix . Avoid nephrotoxic meds. No previous record available so we don't know his Cr baseline. (3) Pneumonia Current Visit: Yes Status: Resolved Assessment and Plan: CTA shows PNA on RUL and RLL. finished zosyn for 9 days. No fever. WBC trend down. Blood/sputum and urine Culture no growth so far. - Finished 9 day abx course, no cough, SOB at baseline. - Cont duoneb for wheezing. D/C steroid per cardiothoracic surgeon for planned surgery.. - Cont O2 suppotive treatment. - After discharge, need f/u with imaging to see resolution per radiology recommendation. (4) DVT prophylaxis Current Visit: Yes Status: Acute Assessment and Plan: Heparin SC DVT Prophylaxis: Heparin SC - Time Spent with Patient Total time spent is greater than 50% in coordination of care (as documented) at patient's floor/unit and/or counseling patient: 30 min 25 - 35 minutes Plan of Care Discussed with: patient Internal Medicine: Result - Labs CBC & Chem 7: 06/15/18 03:51 06/15/18 03:51 Labs: Short CBC 06/15/18 Range/Units 03:51 WBC 9.5 (4.3-11.1) K/mcL Hgb 9.7 L (12.9-16.9) g/dL Hct 29.6 L (37.5-50.1) % Plt Count 252 (140-400) K/mcL Neutrophils # 7.7 (1.6-8.9) K/mcL BMP 06/15/18 03:51 Sodium 145 Potassium 3.7 Chloride 109 H Carbon Dioxide 31 H BUN 34 H Creatinine 1.35 H Glucose 92 Calcium 8.7 - ABG Interpretation ABG results: ABG ABG pH 7.38 pH Units (7.32-7.45) 06/10/18 05:00 ABG pCO2 55 mmHg (35-45) H 06/10/18 05:00 ABG pO2 75 mmHg (85-104) L 06/10/18 05:00 ABG O2 Saturation 94 % (95-98) L 06/10/18 05:00 PT/INR, D-dimer PT 14.0 Seconds (9.4-12.1) H 06/05/18 04:26 Consult Discharge Plan - Plan Referrals: [facility] [Primary Care Provider] - (3) Pneumonia Qualifiers: Pneumonia type: due to unspecified organism Laterality: right Lung location : upper lobe of lung Qualified Code(s): J18.1 - Lobar pneumonia, unspecified organism
--- NOTE | 2018-06-15 12:55 | Event Note ---
Date of Encounter: 06/15/18 Time of Encounter: 12:52 Patient resting comfortably today. No new issues overnight. Vital signs stable. No changes made today. We will re-evaluate tomorrow. Continue aspirin/BB therapy. Hold statin given allergy.
--- NOTE | 2018-06-15 14:48 | Cardiothoracic Progress Note ---
Date of Encounter: 06/15/18 Time of Encounter: 14:46 - Assessment and plan (1) Elevated troponin Current Visit: Yes Status: Acute The assessment and plan as outlined above was discussed with the patient and/or family members who expressed understanding and agreement. All questions were answered. (2) NSTEMI (non-ST elevated myocardial infarction) Current Visit: Yes Status: Acute The assessment and plan as outlined above was discussed with the patient and/or family members who expressed understanding and agreement. All questions were answered. (3) IVAN (acute kidney injury) Current Visit: Yes Status: Acute The assessment and plan as outlined above was discussed with the patient and/or family members who expressed understanding and agreement. All questions were answered. (4) Anemia Current Visit: Yes Status: Acute The assessment and plan as outlined above was discussed with the patient and/or family members who expressed understanding and agreement. All questions were answered. Qualifiers: Anemia type: unspecified type Qualified Code(s): D64.9 - Anemia, unspecified - Subjective Procedure(s) Performed: Patient seen and examined. He had no acute events overnight. His prednisone was discontinued. He has been up in a chair and we DC'd his oxygen and this morning and he is tolerating this well with saturations greater than 92%. He denies any chest pain or discomfort. We discussed plans for carotid ultrasound which were ordered today and the patient is to see Dr. Cheo Quiroga tomorrow to discuss possible CABG. Vital Signs, Last 4 Hours Temp Pulse Resp BP Pulse Ox 06/15/18 12:30 97.8 F 70 18 127/73 91 06/15/18 11:38 18 91 Oxgyen Flow Rate Oxygen Flow Rate (LPM) 2 Clinical Data, last 8 Hours Output, Urine Amount 250 Output, Urine Amount 0 Weight 06/13/18 06/14/18 06/15/18 23:59 23:59 23:59 Weight 110.88 kg 109.6 kg - Labs 06/15/18 03:51 06/15/18 03:51 Lab Results, Last 24 hours 06/15/18 06/15/18 03:51 03:51 WBC 9.5 Hgb 9.7 L Hct 29.6 L Plt Count 252 Sodium 145 Potassium 3.7 Chloride 109 H Carbon Dioxide 31 H BUN 34 H Creatinine 1.35 H Glucose 92 Calcium 8.7 Magnesium 2.0 Consult Discharge Plan - Plan [facility]: [facility] Care Provider[facility] -
[2018-06-15] MEDS: Metoprolol XL (24 HR) Succ 25 MG TAB.ER.24H PO SCH (17:06)
[2018-06-16] MEDS: Ipratropium/Albuterol Neb 3 ML IH SCH ×7 (00:20→23:50)
[2018-06-16 03:51] LABS: Basophils % 0.3 %; Eosinophils # 0.5 K/mcL (0.0-0.6); Eosinophils % 6.8 %; Hematocrit 30.6 % (37.5-50.1); Lymphocytes # 1.1 K/mcL (0.6-4.6); Lymphocytes % 15.3 %; Mean Corpuscular HGB Conc 32.7 g/dL (31.6-35.5); Mean Corpuscular Hemoglobin 29.9 pg (28.0-33.3); Mean Corpuscular Volume 91.6 fL (83.0-100.0); Monocytes # 0.6 K/mcL (0.0-1.3); Monocytes % 8.2 %; Neutrophils # 4.5 K/mcL (1.6-8.9); Platelet Count 241 K/mcL (140-400); Red Blood Count 3.34 M/mcL (4.19-5.50); Red Cell Distribution Width 15.1 % (11.5-14.5); Segmented Neutrophils % 65.4 %
[2018-06-16 03:56] LABS: INR 1.1; Prothrombin Time 12.4 Seconds (9.4-12.1)
[2018-06-16 04:10] LABS: BUN/Creatinine Ratio 24 (6-26); Blood Urea Nitrogen 27 mg/dL (8-23); Calcium 8.8 mg/dL (8.6-10.3); Carbon Dioxide 30 mEq/L (23-29); Chloride 106 mEq/L (98-107); Glucose 94 mg/dL (70-105); Osmolality,Calculated 297 (280-300); Potassium 3.6 mEq/L (3.5-5.1); Sodium 141 mEq/L (136-145); eGFR For Non-African Americans > 60 (> 60)
[2018-06-16] MEDS: *HR* Heparin 5,000 UNIT/ML VIAL SQ SCH ×3 (05:53→21:22)
[2018-06-16] MEDS: Insulin LISPRO 300 UNITS/3 ML VIAL SQ SCH ×4 (07:50→20:19)
[2018-06-16] MEDS: Loratadine 10 MG TABLET PO SCH (07:58)
[2018-06-16] MEDS: Cholecalciferol (D-3) 1,000 UNIT TABLET PO SCH (07:58)
[2018-06-16] MEDS: Aspirin 81 MG TAB.CHEW PO SCH (07:58)
[2018-06-16] MEDS: Lactobacillus 1 EACH CAP.SPRINK PO SCH (07:59)
--- NOTE | 2018-06-16 09:56 | Cardiothoracic Progress Note ---
Date of Encounter: 06/16/18 Time of Encounter: 09:53 - Assessment and plan (1) NSTEMI (non-ST elevated myocardial infarction) Current Visit: Yes Status: Acute The assessment and plan as outlined above was discussed with the patient and/or family members who expressed understanding and agreement. All questions were answered. I reviewed the cardiac catheterization films. The LAD is 100% blocked, but does fill by collaterals. It is extremely small and looks ungraftable. The circumflex coronary artery is also 100% blocked and fills by collaterals. It is also extremely small and looks ungraftable. The right coronary artery is 60- 65% blocked and is a large, graftable vessel. The patient and his family do not want to have open heart surgery. I agree that he is a poor candidate given his advanced age and most likely ungraftable LAD and circumflex. They want to go home on medical therapy and I agree that this is most likely the best course. PTCA and stent placement in the right coronary artery would be another option, but they are not interested in this. - Subjective Interval history: The patient has had no angina and no chest pain. Vital Signs, Last 4 Hours Temp Pulse Resp BP Pulse Ox 06/16/18 08:03 67 06/16/18 07:36 97.6 F 107 20 128/83 96 Oxgyen Flow Rate Oxygen Flow Rate (LPM) 1 Clinical Data, last 8 Hours Output, Urine Amount 250 Output, Urine Amount 100 Weight 06/14/18 06/15/18 06/16/18 23:59 23:59 23:59 Weight 109.6 kg 108.9 kg Lungs are clear to percussion and auscultation. Heart is in a normal sinus rhythm. - Labs 06/16/18 03:35 06/16/18 03:35 Lab Results, Last 24 hours 06/16/18 06/16/18 06/16/18 03:35 03:35 03:35 WBC 6.9 Hgb 10.0 L Hct 30.6 L Plt Count 241 INR Sodium 141 Potassium 3.6 Chloride 106 Carbon Dioxide 30 H BUN 27 H Creatinine 1.12 Glucose 94 Calcium 8.8 Magnesium 1.9 06/16/18 03:35 WBC Hgb Hct Plt Count INR 1.1 Sodium Potassium Chloride Carbon Dioxide BUN Creatinine Glucose Calcium Magnesium Consult Discharge Plan - Plan [facility]errals: [facility] [Primary Care Provider] -
--- NOTE | 2018-06-16 10:01 | Discharge Summary ---
- NOTES TO OUTPATIENT PROVIDER Notes to Outpatient Provider: 1. Pt's home med losartan and Triamterene/HCTZ is on hold because IVAN and BP is not high, I prescribed low dose lasix as pt has diastolic CHF and concern for further fluid overload. Please f/u BP and renal function and then adjust medication as needed. 2. Added baby ASA and metoprolol for CAD per cardio. Orders not resulted at time of discharge: Pending orders 06/12/18 00:01 CL Cardiac Catheterization [CL] Routine 06/15/18 14:34 EV carotid duplex imaging BI Routine 06/16/18 10:00 EKG [ECG 12 lead ECG] [ECG] Routine Date of Encounter: 06/16/18 Time of Encounter: 09:00 - Discharge Diagnosis (1) NSTEMI (non-ST elevated myocardial infarction) Priority: Primary Status: Acute (2) IVAN (acute kidney injury) Priority: Primary Status: Acute (3) Pneumonia Priority: Primary Status: Resolved Qualifiers: Pneumonia type: due to unspecified organism Laterality: right Lung location: upper lobe of lung Qualified Code(s): J18.1 - Lobar pneumonia, unspecified organism (4) DVT prophylaxis Priority: Secondary Status: Acute (5) Acute on chronic diastolic (congestive) heart failure Priority: Primary Status: Acute Hospital course: Mr. Jane is a 87 year old male present to ER from [place] urgent care for cough and SOB. CTA shows pneumonia. Pt also has elevated troponin and was considered NSTEMI, cardiology consult was called. Pt also has IVAN on CKD. Pt's respiratory failure is getting worse during hospitalization and he was intubated and transferred to ICU. Pt was placed on zosyn for pneumonia. After treatment, his condition has improved. Pt was seccessfully extubated. LHC has been done which shows multiple vessel stenosis. Cardiothoracic surgery consult was called for CABG options. After d/w CT surgeon, pt and family would like to persue medical treatment. He has finished Abx courses and will D/C to [place] swing bed if bed is available. I have seen and examined pt today. He is AAO x 3, in NAD. On NC O2 w/o SOB or cough. Vitals stable. Renal function improved to WNL. [facility] and cont f/u with PCP and [place] cardiology. Pt was prescribed baby ASA and po metoprolol for his CAD, no statin because of allergy. Pt and family was informed to follow up with imaging for PNA resolution. - Time Spent with Patient Total time spent providing and/or coordinating discharge services: 30 min Less than 30 minutes - Discharge Medications Prescriptions: Ipratropium/Albuterol Neb [Duoneb] 3 ml IH [id number] PRN 15 Days #60 inhsol PRN Reason: Wheezing Aspirin 81 mg PO DAILY 30 Days #30 tab.chew Metoprolol XL (24 HR) Succ [Toprol Xl] 25 mg PO QPM 30 Days #30 tab.er.24h Home Medications: Cetirizine HCl [All Day Allergy] 10 mg PO DAILY 06/04/18 [History] Cholecalciferol (D-3) [Vitamin D] 2,000 unit PO DAILY 06/04/18 [History] Levothyroxine [Synthroid] 125 mcg PO 0630 06/04/18 [History] Omeprazole [PriLOSEC] 20 mg PO DAILY 06/04/18 [History] Aspirin 81 mg PO DAILY 30 Days #30 tab.chew 06/16/18 [Rx] Furosemide [Lasix] 20 mg PO DAILY 30 Days #30 tablet 06/16/18 [Rx] Ipratropium/Albuterol Neb [Duoneb] 3 ml IH [id number] PRN 15 Days #60 inhsol 06/16/18 [Rx] Metoprolol XL (24 HR) Succ [Toprol Xl] 25 mg PO QPM 30 Days #30 tab.er.24h 06/16/18 [Rx] Allergies/Adverse Reactions: Allergy/AdvReac Type Severity Reaction Status Date / Time atorvastatin Allergy See Verified 06/04/18 16:53 Comments simvastatin Allergy See Verified 06/04/18 16:53 Comments Date of admission: 06/05/18 03:36 [facility] care physician: [facility] Consults: 06/06/18 09:06 Consult to Nephrology [CONS] Routine Consulting Provider: [facility]/ISAIAH/JORGE/LAURI Reason for Consult: IVAN Call Completed: Yes 06/06/18 17:31 Consult to Oncology Hematology [CONS] Routine Consulting Provider: [facility] Reason for Consult: Low Hemoglobin. Call Completed: Yes 06/08/18 03:08 Consult to Critical Care [CONS] Routine Consulting Provider: [facility]m [facility] Reason for Consult: Pulm Edema, Resp failure Call Completed: Yes 06/11/18 11:15 Consult to Occupational Therapy [CONS] Routine Comment: Evaluate, develop and implement POC Reason for Consult: mobilization and discharge planning Does patient have active BEDREST order?: No Is patient medically & hemodynamically stable?: Yes Consult to Physical Therapy [CONS] Routine Comment: Evaluate, develop and implement POC Reason for Consult: mobilization and discharge planning Does patient have active BEDREST order?: No Is patient medically & hemodynamically stable?: Yes 06/12/18 07:42 Consult to Cardiac Rehabilitation-Phase1 [CONS] Routine Comment: Reason for Consult: NSTEMI Call Completed: Yes Discharging clinician: Cong Gamboa Anticipated date of discharge: 06/16/18 - Constitutional Vitals: Temp Pulse Resp BP Pulse Ox 97.6 F 67 20 128/83 96 06/16/18 07:36 06/16/18 08:03 06/16/18 07:36 06/16/18 07:36 06/16/18 07:36 General appearance: Present: cooperative, A&O X 3, no acute distress, answers questions appropriately Exam: in NAD - Head Head exam: Present: atraumatic, normocephalic - Eye Eye exam: Present: PERRL, conjuntiva pink, sclera anicteric Pupils: Present: PERRL - Neck Neck exam general surgery: Present: supple, trachea midline. Absent: lym phadenopathy - Respiratory Respiratory exam: Present: CTAB. Absent: accessory muscle use, rales, rhonchi, wheezes - Cardiovascular Cardiovascular exam: Present: RRR, +S1, +S2. Absent: diastolic murmur, gallop, rubs, systolic murmur - GI/Abdominal GI/Abdominal exam: Present: normal bowel sounds, soft, no peritoneal signs. Absent: distended, tenderness - Extremities Exam Extremities exam: Present: pedal edema (Mild pedal edema B/L), warm, radial pulses palpable and symmetrical. Absent: calf tenderness, cyanotic - Neurological Exam Neurological exam: Present: CN II-XII intact, oriented X3, no focal deficits. Absent: pronater drift, facial droop, speech deficit - Skin Skin exam: Present: dry, intact - Patient Status Disposition: Transfer SNF Condition: Good Functional capacity at discharge: uses cane/walker Overall status at discharge: patient is back to baseline - Discharge Instructions [facility] With: [facility] Care Provider[facility] - - Diet and Activity Activity: as per physical therapy Diet: low fat, low cholesterol, low salt diet Addendum entered and electronically signed by Cong Gamboa MD 06/16/18 11:36: B/L carotid US (ordered by covering CT surgeon for pre-operative evaluation) shows 60-79% stenosis b/l, will add plavix 75 mg po daily. Pt was advised to follow up the progression as outpatient after 6 mo. Pt denies hx of CVA/TIA. Addendum entered and electronically signed by Jerri Augustine MD 06/19/18 15:49: Date of discharge: 06/19/18
--- NOTE | 2018-06-16 10:24 | Cardiology Progress Note ---
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 LHC- There is a 50% stenosis in the Proximal LAD. 100% stenosis in the Proximal LAD. The lesion has collaterals which feed from left to left. 99% stenosis in the 1st Marginal. The lesion has collaterals which feed from left to left and right to left. 60% stenosis in the Proximal RCA. 65% stenosis in the Mid RCA. CT surgery consultation today with Dr. Quiroga. Pt deemed poor candidate for CABG. I discussed possibility of PCI with patient and family and they decline. They are requesting transfer to [facility] for rehab. He is a DNRCC-A. EKG taken today, pt noted to have sinus tachycardia after becoming upset. EKG shows SR with first degree block. No acute ST/T wave changes. Telemetry review shows SR-ST. AVg HR 80, no concerning arrhythmias seen. Allergy to statins noted. Continue aspirin, metoprolol therapy. He denies chest pain. Recommend NTG SL PRN be provided at D/c . Out-pt f/u will be coordinated by [facility]. Call with questions. Discussion w patient/family: The assessment and plan as outlined above was discussed with the patient and/or family members who expressed understanding and agreement. All questions were answered. Thank you for involving us in the care of your patient. Please call with any questions. Subjective Principal diagnosis: Elevated troponin Interval history: Mr. Jane with no complaints. He denies chest pain or shortness of breath. Family says he was worked up prior to me entering the room because [facility]. Objective Vital Signs, Last 4 Hours Temp Pulse Resp BP Pulse Ox 06/16/18 08:03 67 06/16/18 07:36 97.6 F 107 20 128/83 96 General: Conversant, No Apparent Distress HEENT: Atraumatic, Normocephaly, Mucus Membranes Moist Neck: No JVD, Normal carotid pulses Cardiac: Reg Rate and Rhythm, Normal S1 and S2, No Murmur Lungs: Normal Breath Sounds, No Wheeze, Rales, Rhonchi Neuro: Alert and responsive, No focal deficits noted Abdomen: Soft, Non-Tender Skin: No rashes noted on visualized skin Musculoskeletal: No Chest Wall Tenderness Extremities: No Clubbing, No Cyanosis, No Edema, Normal Pulses Results 06/16/18 03:35 06/16/18 03:35 Lab Results 06/16/18 06/16/18 06/16/18 03:35 03:35 03:35 WBC 6.9 Hgb 10.0 L Hct 30.6 L Plt Count 241 INR Sodium 141 Potassium 3.6 Chloride 106 Carbon Dioxide 30 H BUN 27 H Creatinine 1.12 Glucose 94 Calcium 8.8 Magnesium 1.9 06/16/18 03:35 WBC Hgb Hct Plt Count INR 1.1 Sodium Potassium Chloride Carbon Dioxide BUN Creatinine Glucose Calcium Magnesium - Imaging and Cardiology Echo: report reviewed Cardiac cath: report reviewed - EKG Interpretation EKG results cardiology: personally reviewed Consult Discharge Plan - Plan [facility]errals: [facility] [Primary Care Provider] - Prescriptions: Ipratropium/Albuterol Neb [Duoneb] 3 ml IH [id number] PRN 15 Days #60 inhsol PRN Reason: Wheezing Aspirin 81 mg PO DAILY 30 Days #30 tab.chew Metoprolol XL (24 HR) Succ [Toprol Xl] 25 mg PO QPM 30 Days #30 tab.er.24h
--- NOTE | 2018-06-16 10:44 | Physician Discharge Referral ---
ExtendedCare Referral Info Transfer To: [facility] Provider in Charge after Transfer: Other (ECF physician) - Diagnosis (1) NSTEMI (non-ST elevated myocardial infarction) Priority: Primary Status: Acute (2) IVAN (acute kidney injury) Priority: Primary Status: Acute (3) Pneumonia Priority: Secondary Status: Resolved (4) DVT prophylaxis Priority: Secondary Status: Acute (5) Acute on chronic diastolic (congestive) heart failure Priority: Primary Status: Acute - Transfer Medications Prescriptions: Ipratropium/Albuterol Neb [Duoneb] 3 ml IH [id number] PRN 15 Days #60 inhsol PRN Reason: Wheezing Nitroglycerin 0.4 mg SL Q5MIN PRN #30 tab.subl PRN Reason: Chest Pain Aspirin 81 mg PO DAILY 30 Days #30 tab.chew Furosemide [Lasix] 20 mg PO DAILY 30 Days #30 tablet Metoprolol XL (24 HR) Succ [Toprol Xl] 25 mg PO QPM 30 Days #30 tab.er.24h Home Medications: Cetirizine HCl [All Day Allergy] 10 mg PO DAILY 06/04/18 [History] Cholecalciferol (D-3) [Vitamin D] 2,000 unit PO DAILY 06/04/18 [History] Levothyroxine [Synthroid] 125 mcg PO 0630 06/04/18 [History] Omeprazole [PriLOSEC] 20 mg PO DAILY 06/04/18 [History] Aspirin 81 mg PO DAILY 30 Days #30 tab.chew 06/16/18 [Rx] Furosemide [Lasix] 20 mg PO DAILY 30 Days #30 tablet 06/16/18 [Rx] Ipratropium/Albuterol Neb [Duoneb] 3 ml IH [id number] PRN 15 Days #60 inhsol [Rx] Metoprolol XL (24 HR) Succ [Toprol Xl] 25 mg PO QPM 30 Days #30 tab.er.24h 06/16 [Rx] Nitroglycerin 0.4 mg SL Q5MIN PRN #30 tab.subl 06/16/18 [Rx] Allergies/Adverse Reactions: 3 Allergy/AdvReac Type Severity Reaction Status Date / Time atorvastatin Allergy See Verified 06/04/18 16:53 Comments simvastatin Allergy See Verified 06/04/18 16:53 Comments - Respiratory Orders Oxygen / L per min (2) Smoking Cessation: Smoking cessation has been advised. For more information, call the [place] Tobacco Quit Line at 0-728-PVKE-NOW. - Lab Orders Lab Orders: Jeremie 17 (in one week.) - Advance Directives Living Will: Yes Code Status: DNR-Arrest - Rehabiliation Orders Rehab Orders: Evaluation for Physical Therapy, Evaluation for Occupational Therapy - Diet Orders Cardiac CERTIFICATION: I certify that the transfer of the above named patient to an Extended Care Facility is necessary for the continuing treatment of the diagnosis listed. The above information is true and accurate reflection of patient's current condition. Confidential - Redisclosure prohibited without a patient's written consent.
--- NOTE | 2018-06-16 11:11 | Electrocardiograph Report ---
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
--- NOTE | 2018-06-16 11:12 | Electrocardiograph Report ---
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
[2018-06-16] MEDS: Furosemide 20 MG TABLET PO SCH (13:15)
[2018-06-16] MEDS: Metoprolol XL (24 HR) Succ 25 MG TAB.ER.24H PO SCH (17:26)
[2018-06-17] MEDS: Ipratropium/Albuterol Neb 3 ML IH SCH ×5 (04:23→20:01)
[2018-06-17 05:34] LABS: BUN/Creatinine Ratio 22 (6-26); Blood Urea Nitrogen 23 mg/dL (8-23); Calcium 8.5 mg/dL (8.6-10.3); Carbon Dioxide 29 mEq/L (23-29); Chloride 106 mEq/L (98-107); Glucose 95 mg/dL (70-105); Osmolality,Calculated 295 (280-300); Potassium 3.9 mEq/L (3.5-5.1); Sodium 141 mEq/L (136-145); eGFR For Non-African Americans > 60 (> 60)
[2018-06-17] MEDS: *HR* Heparin 5,000 UNIT/ML VIAL SQ SCH ×3 (07:20→21:49)
[2018-06-17] MEDS: Lactobacillus 1 EACH CAP.SPRINK PO SCH (09:23)
[2018-06-17] MEDS: Loratadine 10 MG TABLET PO SCH (09:23)
[2018-06-17] MEDS: Cholecalciferol (D-3) 1,000 UNIT TABLET PO SCH (09:23)
[2018-06-17] MEDS: Aspirin 81 MG TAB.CHEW PO SCH (09:25)
[2018-06-17] MEDS: Insulin LISPRO 300 UNITS/3 ML VIAL SQ SCH (09:25)
[2018-06-17] MEDS: Furosemide 20 MG TABLET PO SCH (09:25)
--- NOTE | 2018-06-17 10:49 | Internal Med Progress Note ---
Hospitalist Progress Note - Encounter Date of Encounter: 06/17/18 Time of Encounter: 09:40 - Subjective Interval History: Patient continues to do well overall. Denies any new complaints at this time. Was hypoxic while lying down but improved as soon as he awoke. Does have underlying sleep apnea and has CPAP at home but he does not use it. Encouraged to use it. Awaiting placement to [facility] - Exam Vitals: Temp Pulse Resp BP Pulse Ox 98.1 F 83 20 125/74 95 06/17/18 07:37 06/17/18 09:00 06/17/18 09:00 06/17/18 07:37 06/17/18 09:00 Exam: General: Patient is alert, no acute distress, oriented x 3 Respiratory: Good respiratory effort. Decreased breath sounds at both bases. No wheezing or crackles. Cardiovascular: Regular rate and rhythm. s1 and s2 normal No clicks, rubs, gallops, or murmurs. Mild pedal edema Abdomen: Abdomen is soft, nontender. Bowel sounds are present Musculoskeletal: Spontaneously moving all extremities Skin: warm, dry, intact. Neuro: Alert oriented x 3 normal cranial nerves, no focal deficits - Assessment and Plan (1) NSTEMI (non-ST elevated myocardial infarction) Current Visit: Yes Status: Acute Assessment and Plan: Status post-left heart catheter. Recommended CABG but patient wishes to be treated medically for now. Plan is to discharge him to skilled rehabilitation at the [facility] when they accept him. Low risk for complications at this time. (2) IVAN (acute kidney injury) Current Visit: Yes Status: Resolved Assessment and Plan: This has resolved (3) Pneumonia Current Visit: Yes Status: Resolved Assessment and Plan: Completed treatment for this. (4) DVT prophylaxis Current Visit: Yes Status: Acute Assessment and Plan: On subcutaneous heparin (5) Acute on chronic diastolic (congestive) heart failure Current Visit: Yes Status: Acute Assessment and Plan: Continue Lasix. Follow-up outpatient with cardiology. - Time Spent with Patient Total time spent is greater than 50% in coordination of care (as documented) at patient's floor/unit and/or counseling patient: Internal Medicine: Result - Labs CBC & Chem 7: 06/16/18 03:35 06/17/18 04:00 Labs: BMP 06/17/18 04:00 Sodium 141 Potassium 3.9 Chloride 106 Carbon Dioxide 29 BUN 23 Creatinine 1.05 Glucose 95 Calcium 8.5 L - ABG Interpretation ABG results: ABG ABG pH 7.38 pH Units (7.32-7.45) 06/10/18 05:00 ABG pCO2 55 mmHg (35-45) H 06/10/18 05:00 ABG pO2 75 mmHg (85-104) L 06/10/18 05:00 ABG O2 Saturation 94 % (95-98) L 06/10/18 05:00 PT/INR, D-dimer PT 12.4 Seconds (9.4-12.1) H 06/16/18 03:35 Consult Discharge Plan - Plan Referrals: Oziel Dempsey, [employer] TEND[employer] [Advanced Practice Nurse] - (office will call patient at home with follow up appointment) [facility] [Primary Care Provider[facility] - 06/26/18 3:00 pm Prescriptions: Ipratropium/Albuterol Neb [Duoneb] 3 ml IH [id number] PRN 15 Days #60 inhsol PRN Reason: Wheezing Nitroglycerin 0.4 mg SL Q5MIN PRN #30 tab.subl PRN Reason: Chest Pain Aspirin 81 mg PO DAILY 30 Days #30 tab.chew Clopidogrel Bisulfate [Plavix] 75 mg PO DAILY 30 Days #30 tablet Furosemide [Lasix] 20 mg PO DAILY 30 Days #30 tablet Metoprolol XL (24 HR) Succ [Toprol Xl] 25 mg PO QPM 30 Days #30 tab.er.24h (3) Pneumonia Qualifiers: Pneumonia type: due to unspecified organism Laterality: right Lung location : upper lobe of lung Qualified Code(s): J18.1 - Lobar pneumonia, unspecified organism
[2018-06-17] MEDS: Metoprolol XL (24 HR) Succ 25 MG TAB.ER.24H PO SCH (17:24)
[2018-06-18] MEDS: Ipratropium/Albuterol Neb 3 ML IH SCH ×7 (00:09→23:57)
[2018-06-18] MEDS: *HR* Heparin 5,000 UNIT/ML VIAL SQ SCH ×3 (06:39→21:41)
[2018-06-18] MEDS: Lactobacillus 1 EACH CAP.SPRINK PO SCH (08:48)
[2018-06-18] MEDS: Cholecalciferol (D-3) 1,000 UNIT TABLET PO SCH (08:48)
[2018-06-18] MEDS: Furosemide 20 MG TABLET PO SCH (08:48)
[2018-06-18] MEDS: Aspirin 81 MG TAB.CHEW PO SCH (08:48)
[2018-06-18] MEDS: Loratadine 10 MG TABLET PO SCH (08:48)
--- NOTE | 2018-06-18 13:00 | Internal Med Progress Note ---
Hospitalist Progress Note - Encounter Date of Encounter: 06/18/18 Time of Encounter: 09:20 - Subjective Interval History: Patient is awake and alert. Denies any new complaints. Awaiting placement to a skilled rehabilitation. No shortness of breath or chest pain at this time. - Exam Vitals: Temp Pulse Resp BP Pulse Ox 98.0 F 101 16 106/61 98 06/18/18 11:17 06/18/18 11:17 06/18/18 11:37 06/18/18 11:17 06/18/18 11:37 Exam: General: Patient is alert, no acute distress, oriented x 3 Respiratory: Good respiratory effort. Decreased breath sounds at bases. No wheezing or crackles. Cardiovascular: Regular rate and rhythm. s1 and s2 normal No clicks, rubs, gallops, or murmurs. Pedal edema present Abdomen: Abdomen is soft, nontender. Bowel sounds are present Musculoskeletal: Spontaneously moving all extremities Skin: warm, dry, intact. Neuro: Alert oriented x 3 normal cranial nerves, no focal deficits - Assessment and Plan (1) NSTEMI (non-ST elevated myocardial infarction) Current Visit: Yes Status: Acute Assessment and Plan: Continue medical management with aspirin, Plavix . Not on statins due to allergy (2) IVAN (acute kidney injury) Current Visit: Yes Status: Resolved (3) Pneumonia Current Visit: Yes Status: Resolved (4) DVT prophylaxis Current Visit: Yes Status: Acute Assessment and Plan: On subcutaneous heparin (5) Acute on chronic diastolic (congestive) heart failure Current Visit: Yes Status: Acute Assessment and Plan: continue Lasix, Toprol. Awaiting placement to skilled rehabilitation. - Time Spent with Patient Total time spent is greater than 50% in coordination of care (as documented) at patient's floor/unit and/or counseling patient: Internal Medicine: Result - Labs CBC & Chem 7: 06/16/18 03:35 06/17/18 04:00 - ABG Interpretation ABG results: ABG ABG pH 7.38 pH Units (7.32-7.45) 06/10/18 05:00 ABG pCO2 55 mmHg (35-45) H 06/10/18 05:00 ABG pO2 75 mmHg (85-104) L 06/10/18 05:00 ABG O2 Saturation 94 % (95-98) L 06/10/18 05:00 PT/INR, D-dimer PT 12.4 Seconds (9.4-12.1) H 06/16/18 03:35 Consult Discharge Plan - Plan Referrals: Oziel Dmepsey INSURANCE CASE MANAGER [Advanced Practice Nurse] - (office will call patient at home with follow up appointment) [place],PCP [Primary Care Provider] - 06/26/18 3:00 pm Prescriptions: Ipratropium/Albuterol Neb [Duoneb] 3 ml IH [id number] PRN 15 Days #60 inhsol PRN Reason: Wheezing Nitroglycerin 0.4 mg SL Q5MIN PRN #30 tab.subl PRN Reason: Chest Pain Aspirin 81 mg PO DAILY 30 Days #30 tab.chew Clopidogrel Bisulfate [Plavix] 75 mg PO DAILY 30 Days #30 tablet Furosemide [Lasix] 20 mg PO DAILY 30 Days #30 tablet Metoprolol XL (24 HR) Succ [Toprol Xl] 25 mg PO QPM 30 Days #30 tab.er.24h (3) Pneumonia Qualifiers: Pneumonia type: due to unspecified organism Laterality: right Lung location : upper lobe of lung Qualified Code(s): J18.1 - Lobar pneumonia, unspecified organism
[2018-06-18] MEDS: Metoprolol XL (24 HR) Succ 25 MG TAB.ER.24H PO SCH (16:47)
[2018-06-18 23:20] VITALS: BP 100/62
[2018-06-19] MEDS: Ipratropium/Albuterol Neb 3 ML IH SCH ×4 (07:46→16:15)
[2018-06-19] MEDS: *HR* Heparin 5,000 UNIT/ML VIAL SQ SCH ×2 (13:38→15:00)
[2018-06-19] MEDS: Lactobacillus 1 EACH CAP.SPRINK PO SCH (13:39)
[2018-06-19] MEDS: Loratadine 10 MG TABLET PO SCH (13:39)
[2018-06-19] MEDS: Aspirin 81 MG TAB.CHEW PO SCH (13:39)
[2018-06-19] MEDS: Furosemide 20 MG TABLET PO SCH (13:39)
[2018-06-19] MEDS: Cholecalciferol (D-3) 1,000 UNIT TABLET PO SCH (13:40)
--- NOTE | 2018-06-19 13:40 | Event Note ---
Date of Encounter: 06/19/18 Time of Encounter: 13:39 Progress note documented on paper chart today due to metastatic downtime. Please refer to progress note for completion. Patient is awaiting discharge to skilled rehabilitation. Denies any new complaints at this time. Is comfortable. No chest pain or palpitations. On exam, patient is awake and alert. Heart sounds are normal. Breath sounds are also normal. No pedal edema noted. Abdomen is soft, nontender. Non-ST elevation [place] status post left heart catheterization: Continue medical management. Plan for discharge later today to skilled rehabilitation.
[2018-06-19] MEDS ORDERED: *HR* Heparin 5,000 UNIT/ML VIAL IVP ONE (16:56)
[2018-06-19] MEDS ORDERED: Loratadine 10 MG TABLET PO ONE (16:56)
[2018-06-19] MEDS ORDERED: Cholecalciferol (D-3) 1,000 UNIT TABLET PO ONE (16:56)
[2018-06-19] MEDS ORDERED: Lactobacillus 1 EACH CAP.SPRINK PO ONE (16:56)
[2018-06-19] MEDS ORDERED: Aspirin 81 MG TAB.CHEW PO ONE (16:56)
[2018-06-19] MEDS ORDERED: Ipratropium/Albuterol Neb 3 ML IH ONE ×3 (16:56)
[2018-06-19] MEDS ORDERED: Furosemide 20 MG TABLET PO ONE (16:56)
== END 2018-06-19 16:57 | DRG 280 ==
LOC: EMEROOARM 16:39 → 2NENU 16:39 → SUATTDRO 06-05 03:36 → ICNU 06-08 03:05 → 2NNU 06-13 17:49
PROVIDERS: ADMIT Pediatrics; ATTEND Internal Medicine

== ENCOUNTER 2020-12-07 15:56 | Observation (INO) ==
[2020-12-07] MEDS ORDERED: Naloxone 0.4 MG/ML INJ IVP PRN (17:54)
[2020-12-07] MEDS ORDERED: Perflutren Lipid Microsphere 1.3 ML in 0.9 % Sodium Chloride 8.7 ML IVP PRN (17:57)
[2020-12-07] MEDS ORDERED: Furosemide 20 MG/2 ML VIAL IVP ONE (17:57)
[2020-12-07] MEDS: *HR* Heparin 5,000 UNIT/ML VIAL SQ SCH (18:46)
[2020-12-08 02:12] LABS: Basophils # 0.1 K/mcL (0.0-0.2); Basophils % 0.9 %; Eosinophils # 0.3 K/mcL (0.0-0.6); Eosinophils % 5.2 %; Hematocrit 36.3 % (37.5-50.1); Hemoglobin 11.2 g/dL (12.9-16.9); Immature Granulocytes % 0.4 % (0-4); Immature Platelets 7.1 % (1.1-6.1); Lymphocytes # 1.5 K/mcL (0.6-4.6); Lymphocytes % 26.6 %; Mean Corpuscular HGB Conc 30.9 g/dL (31.6-35.5); Mean Corpuscular Hemoglobin 29.8 pg (28.0-33.3); Mean Corpuscular Volume 96.5 fL (83.0-100.0); Mean Platelet Volume 11.4 fL (9.4-12.4); Monocytes # 0.6 K/mcL (0.0-1.3); Monocytes % 11.3 %; Neutrophils # 3.1 K/mcL (1.6-8.9); Platelet Count 128 K/mcL (140-400); Red Blood Count 3.76 M/mcL (4.19-5.50); Red Cell Distribution Width 13.2 % (11.5-14.5); Segmented Neutrophils % 55.6 %; White Blood Count 5.6 K/mcL (4.3-11.1)
[2020-12-08 02:27] LABS: BUN/Creatinine Ratio 16 (6-26); Blood Urea Nitrogen 19 mg/dL (8-23); Calcium 9.1 mg/dL (8.6-10.3); Carbon Dioxide 41 mEq/L (23-29); Chloride 98 mEq/L (98-107); Glucose 95 mg/dL (70-105); Osmolality,Calculated 296 (280-300); Sodium 142 mEq/L (136-145); eGFR For African Americans > 60 (> 60); eGFR For Non-African Americans 57 (> 60)
[2020-12-08] MEDS: *HR* Heparin 5,000 UNIT/ML VIAL SQ SCH ×2 (04:57→18:10)
[2020-12-08] MEDS ORDERED: Furosemide 20 MG/2 ML VIAL IVP SCH (09:00)
[2020-12-08] MEDS ORDERED: Aspirin 81 MG TAB.CHEW PO SCH (09:00)
[2020-12-08] MEDS ORDERED: Furosemide 20 MG/2 ML VIAL IVP ONE (14:55)
[2020-12-08] MEDS: Metoprolol XL (24 HR) Succ 25 MG TAB.ER.24H PO SCH (18:10)
[2020-12-09 04:30] LABS: Immature Granulocytes % 0.4 % (0-4)
[2020-12-09 04:32] LABS: Basophils % 0.6 %; Eosinophils # 0.3 K/mcL (0.0-0.6); Eosinophils % 6.2 %; Hematocrit 36.5 % (37.5-50.1); Hemoglobin 11.4 g/dL (12.9-16.9); Immature Platelets 6.1 % (1.1-6.1); Lymphocytes # 1.3 K/mcL (0.6-4.6); Mean Corpuscular HGB Conc 31.2 g/dL (31.6-35.5); Mean Corpuscular Hemoglobin 30.1 pg (28.0-33.3); Mean Corpuscular Volume 96.3 fL (83.0-100.0); Mean Platelet Volume 11.3 fL (9.4-12.4); Monocytes # 0.6 K/mcL (0.0-1.3); Monocytes % 10.9 %; Platelet Count 137 K/mcL (140-400); Red Blood Count 3.79 M/mcL (4.19-5.50); Red Cell Distribution Width 13.1 % (11.5-14.5); Segmented Neutrophils % 56.9 %; White Blood Count 5.2 K/mcL (4.3-11.1)
[2020-12-09 04:57] LABS: Calcium 9.5 mg/dL (8.6-10.3); Potassium 3.8 mEq/L (3.5-5.1)
[2020-12-09] MEDS: *HR* Heparin 5,000 UNIT/ML VIAL SQ SCH ×2 (05:52→17:05)
[2020-12-09] MEDS: Cholecalciferol (D-3) 1,000 UNIT (25MCG) TABLET PO SCH (08:51)
[2020-12-09] MEDS: Aspirin 81 MG TAB.CHEW PO SCH (08:52)
[2020-12-09] MEDS ORDERED: Furosemide 40 MG/4 ML VIAL IVP SCH (09:00)
[2020-12-09] MEDS ORDERED: 0.9 % Sodium Chloride 250 ML IVC SCH (16:45)
[2020-12-09] MEDS: Metoprolol XL (24 HR) Succ 25 MG TAB.ER.24H PO SCH (17:05)
[2020-12-10] MEDS: *HR* Heparin 5,000 UNIT/ML VIAL SQ SCH (04:54)
[2020-12-10 07:23] VITALS: BP 117/75
[2020-12-10 08:16] LABS: BUN/Creatinine Ratio 24 (6-26); Blood Urea Nitrogen 28 mg/dL (8-23); Calcium 9.4 mg/dL (8.6-10.3); Carbon Dioxide 37 mEq/L (23-29); Chloride 99 mEq/L (98-107); Glucose 98 mg/dL (70-105); Osmolality,Calculated 293 (280-300); Potassium 3.9 mEq/L (3.5-5.1); Sodium 139 mEq/L (136-145); eGFR For African Americans > 60 (> 60); eGFR For Non-African Americans 59 (> 60)
[2020-12-10 08:34] LABS: Hematocrit 35.1 % (37.5-50.1); Mean Corpuscular HGB Conc 31.3 g/dL (31.6-35.5); Mean Corpuscular Hemoglobin 29.6 pg (28.0-33.3); Mean Corpuscular Volume 94.6 fL (83.0-100.0); Mean Platelet Volume 11.3 fL (9.4-12.4); Platelet Count 128 K/mcL (140-400); Red Blood Count 3.71 M/mcL (4.19-5.50); Red Cell Distribution Width 13.1 % (11.5-14.5); White Blood Count 4.8 K/mcL (4.3-11.1)
[2020-12-10] MEDS: Cholecalciferol (D-3) 1,000 UNIT (25MCG) TABLET PO SCH (12:32)
[2020-12-10] MEDS: Aspirin 81 MG TAB.CHEW PO SCH (12:32)
== END 2020-12-10 14:40 | disposition home or self-care (01) ==
LOC: 3BNU → SUATTDRO 16:42
PROVIDERS: ADMIT Internal Medicine; ATTEND Nurse Practitioner